=== PATIENT | male | born 1965 | race American Indian/Alaskan Native ===

== ENCOUNTER 2016-11-20 17:54 | Inpatient (IN) | payer MEDICAID ==
[2016-11-20 18:06] VITALS: BMI 29.9
[2016-11-20 19:50] LABS: BASO # 0.03 K/mm3 (0.0-2.0); BASO % 0.5 % (0.0-3.0); EOS # 0.1 (0.0-0.7); EOS % 1.9 % (1.5-5.0); GRAN # 3.22 (1.4-6.5); GRAN % 54.6 % (50.0-68.0); HEMATOCRIT 40.3 % (42.0-52.0); LYMPH # 2.1 (1.2-3.4); MEAN CELL VOLUME 82.9 fl (80.0-105.0); MEAN CORPUSCULAR HEMOGLOBIN 29.4 pg (25.0-35.0); MEAN CORPUSCULAR HGB CONC 35.5 g/dl (31.0-37.0); MEAN PLATELET VOLUME 9.1 fl (7.0-11.0); MONO # 0.4 (0.1-0.6); RED CELL DISTRIBUTION WIDTH 15.5 % (11.5-14.5); WHITE BLOOD COUNT 5.9 10^3/ul (4.5-11.0)
[2016-11-20 19:53] LABS: ALB/GLOB RATIO 1.4 (1.1-1.8); ALKALINE PHOSPHATASE 74 U/L (38-126); AST/SGOT 96 U/L (17-59); BILIRUBIN,TOTAL 0.7 mg/dL (0.2-1.3); BLOOD UREA NITROGEN 20 mg/dL (7-21); CARBON DIOXIDE 25 mmol/L (21-33); GFR AFRICAN-AMERICAN > 60; GLUCOSE,RANDOM 124 mg/dL (70-110); TOTAL PROTEIN 7.3 g/dL (5.8-8.3)
[2016-11-20 19:55] LABS: ALT/SGPT 46 U/L (7-56); CALCIUM 9.1 mg/dL (8.4-10.5); CHLORIDE 108 mmol/L (98-107); POTASSIUM 3.8 mmol/L (3.6-5.0)
[2016-11-20 20:08] LABS: SODIUM 141 mmol/L (132-148)
--- NOTE | 2016-11-20 20:22 | ED PDOC ---
Arrival/HPI - General Chief Complaint: Psychiatric Evaluation Time Seen by Provider: 11/20/16 18:12 Historian: Patient - History of Present Illness Narrative History of Present Illness (Text): 11/20/16 18:06 A 51 year old male, whose past medical history includes substance abuse, presents to the emergency department complaining of suicidal ideation. Patient reports feeling depressed and has thoughts of either hanging or shooting himself. Patient denies of any homicidal ideation, hallucinations, or any physical complaints. Also, patient has a history of depression and bipolar disorder and does not take medications due to financial constraints. No PMD Symptom Onset: Gradual Symptom Course: Unchanged Past Medical History - Provider Review Nursing Documentation Reviewed: Yes - Infectious Disease Hx of Infectious Diseases: None - Cardiac Hx Hypertension: Yes - Pulmonary Hx Tuberculosis: No - Neurological Hx Seizures: No - HEENT Hx HEENT Disorder: No - Renal Hx Renal Disorder: No - Endocrine/Metabolic Hx Endocrine Disorders: No - Hematological/Oncological Hx Cancer: No (Patient denied) - Integumentary Hx Dermatological Disorder: No - Musculoskeletal/Rheumatological Hx Musculoskeletal Disorders: No Hx Falls: No - Gastrointestinal Hx Gastrointestinal Disorders: No - Genitourinary/Gynecological Hx Sexually Transmitted Diseases: No - Psychiatric Hx Depression: Yes Hx Post Traumatic Stress Disorder: Yes Hx Substance Use: Yes (marijuana also pos for cocaine) - Anesthesia Hx Anesthesia: No Family/Social History - Physician Review Nursing Documentation Reviewed: Yes Family/Social History: No Known Family HX Smoking Status: Light Smoker < 10 Cigarettes Daily Hx Alcohol Use: Yes Hx Substance Use: Yes (marijuana also pos for cocaine) Allergies/Home Meds Allergies/Adverse Reactions: Allergies shrimp Allergy (Verified 11/09/16 14:37) SWELLING Home Medications: Home Meds Medication Instructions Recorded Confirmed No Known Home Med 11/09/16 11/09/16 Review of Systems - Physician Review All systems were reviewed & negative as marked: Yes - Review of Systems Constitutional: absent: Other (no physical complaints) Psychiatric: Depression, Suicidal Ideation. absent: Other (no homicidal ideation; no hallucinations) Physical Exam Vital Signs Reviewed: Yes Vital Signs Temp Pulse Resp BP Pulse Ox 11/20/16 20:13 84 16 136/80 98 11/20/16 17:54 99 F 103 H 18 107/74 98 Temperature: Afebrile Blood Pressure: Normal Pulse: Regular Respiratory Rate: Normal Appearance: Positive for: Well-Appearing, Non-Toxic, Comfortable Pain Distress: None Mental Status: Positive for: Alert and Oriented X 3 - Systems Exam Head: Present: Atraumatic, Normocephalic Pupils: Present: PERRL Extroacular Muscles: Present: EOMI Conjunctiva: Present: Normal Mouth: Present: Moist Mucous Membranes Neck: Present: Normal Range of Motion Respiratory/Chest: Present: Clear to Auscultation, Good Air Exchange. No: Respiratory Distress, Accessory Muscle Use Cardiovascular: Present: Regular Rate and Rhythm, Normal S1, S2. No: Murmurs Abdomen: Present: Normal Bowel Sounds. No: Tenderness, Distention, Peritoneal Signs Back: Present: Normal Inspection Upper Extremity: Present: Normal Inspection. No: Cyanosis, Edema Lower Extremity: Present: Normal Inspection. No: Edema Neurological: Present: GCS=15, CN II-XII Intact, Speech Normal Skin: Present: Warm, Dry, Normal Color. No: Rashes Psychiatric: Present: Alert, Oriented x 3, Normal Insight, Normal Concentration Medical Decision Making ED Course and Treatment: 11/20/16 18:12 Impression: 51 year old male with suicidal ideation. Physical exam is normal. Plan: -- EKG -- Chest X-ray -- Labs -- Urinalysis -- Reassess and disposition Prior Visits: Notes and results from previous visits were reviewed. Patient was last seen in the emergency department on 11/09/2016 for detox intaking cocaine and alcohol. Patient was admitted. Progress Notes: EKG: Ordered, reviewed, and independently interpreted the EKG. Rate : 91 BPM Rhythm : NSR Interpretation : No ST-segment elevations or depressions, no T-wave inversions, normal intervals. Comparison : No previous EKG for comparison. - Lab Interpretations Lab Results: 11/20/16 19:30 11/20/16 19:30 Lab Results 11/20/16 19:30: Alcohol, Quantitative 64 H 11/20/16 19:30: Salicylates < 1 L, Acetaminophen < 10.0 L 11/20/16 19:30: Sodium 141, Potassium 3.8, Chloride 108 H, Carbon Dioxide 25, Anion Gap 12, BUN 20, Creatinine 1.3, Est GFR ( Amer) > 60, Est GFR (Non- Af Amer) 59, Random Glucose 124 H, Calcium 9.1, Total Bilirubin 0.7, AST 96 H D , ALT 46, Alkaline Phosphatase 74, Total Protein 7.3, Albumin 4.2, Globulin 3.1 , Albumin/Globulin Ratio 1.4 11/20/16 19:30: WBC 5.9, RBC 4.86, Hgb 14.3, Hct 40.3 L, MCV 82.9, MCH 29.4, MCHC 35.5, RDW 15.5 H, Plt Count 254, MPV 9.1, Gran % 54.6, Lymph % (Auto) 36.0 H, Baldwin % (Auto) 7.0 H, Eos % (Auto) 1.9, Baso % (Auto) 0.5, Gran # 3.22, Lymph # 2.1, Baldwin # 0.4, Eos # 0.1, Baso # 0.03 I have reviewed the lab results: Yes - RAD Interpretation Radiology Orders: 11/20/16 18:12 CHEST ONE VIEW [RAD] Stat - Scribe Statement The provider has reviewed the documentation as recorded by the Talat Nguyen Provider Scribe Attestation: All medical record entries made by the Talat were at my direction and personally dictated by me. I have reviewed the chart and agree that the record accurately reflects my personal performance of the history, physical exam, medical decision making, and the department course for this patient. I have also personally directed, reviewed, and agree with the discharge instructions and disposition. Disposition/Present on Arrival - Present on Arrival Any Indicators Present on Arrival: No History of DVT/PE: No History of Uncontrolled Diabetes: No Urinary Catheter: No History of Decub. Ulcer: No History Surgical Site Infection Following: None - Disposition Have Diagnosis and Disposition been Completed?: Yes Diagnosis: Bipolar 1 disorder Disposition: HOSPITALIZED Disposition Time: 20:50 Condition: STABLE
--- NOTE | 2016-11-21 06:16 | PCM.BM ---
<FranckReji O - Last Filed: 11/21/16 06:00> Treatment Plan Problems - Problems identified on initial assessmt suicidal thoughts Date Initiated: 11/20/16 Time Initiated: 22:00 Assessment reference: NA Status: Active Priority: 1 substance abuse Date Initiated: 11/20/16 Time Initiated: 22:00 Assessment reference: NA Status: Active Priority: 2 Treatment assets and liabiliti Patient Assests: adapts well, cooperative, motivated, ADL independent, physically healthy, negotiates basic needs, good interpersonal skills Patient Liabilities: financial problems, poor support system, relationship conflicts, substance abuse - Milieu Protocol Maintain good personal hygiene: daily Encourage regular showers, daily Remind patient to perform daily oral care, daily Assist patient to perform ADL's Maintain personal safety: daily Educate patient to report safety concerns to staff, daily Monitor environment for contraband/sharps Medication safety: Monitor for expected outcome, potential side effects: daily, Assess barriers to learning: daily, Assess readiness for medication education: daily Milieu Narrative: * grp/milieu and supportive tx * celexa 10 mg po daily for depression * sonata 5 mg HS for insomnia * ativan 1 mg po q8 for alcohol withdrawal, taper as tolerated * Awaiting medical consult * Vitals reviewed and noted below: ER LABS AND STUDIES Rate : 91 BPM Rhythm : NSR Interpretation : No ST-segment elevations or depressions, no T-wave inversions, normal intervals. 11/20/16 19:30: Alcohol, Quantitative 64 H 11/20/16 19:30: Salicylates < 1 L, Acetaminophen < 10.0 L 11/20/16 19:30: Sodium 141, Potassium 3.8, Chloride 108 H, Carbon Dioxide 25, Anion Gap 12, BUN 20, Creatinine 1.3, Est GFR ( Amer) > 60, Est GFR (Non- Af Amer) 59, Random Glucose 124 H, Calcium 9.1, Total Bilirubin 0.7, AST 96 H D , ALT 46, Alkaline Phosphatase 74, Total Protein 7.3, Albumin 4.2, Globulin 3.1 , Albumin/Globulin Ratio 1.4 11/20/16 19:30: WBC 5.9, RBC 4.86, Hgb 14.3, Hct 40.3 L, MCV 82.9, MCH 29.4, MCHC 35.5, RDW 15.5 H, Plt Count 254, MPV 9.1, Gran % 54.6, Lymph % (Auto) 36.0 H, Bonner % (Auto) 7.0 H, Eos % (Auto) 1.9, Baso % (Auto) 0.5, Gran # 3.22, Lymph # 2.1, Bonner # 0.4, Eos # 0.1, Baso # 0.03 Family Contact Family contact name: Tisha Maurice Discharge/Continuing Care - Education Needs Education Needs: Patient Medication, Patient Coping Skills, Patient Placement options, Patient Activities of Daily Living - Discharge Discharge Criteria: Free of Suicidal thoughts, Normal sleep pattern - Treatment Team Participation Patient/Family/SO Statement: * grp/milieu and supportive tx * celexa 10 mg po daily for depression * sonata 5 mg HS for insomnia * ativan 1 mg po q8 for alcohol withdrawal, taper as tolerated * Awaiting medical consult * Vitals reviewed and noted below: ER LABS AND STUDIES Rate : 91 BPM Rhythm : NSR Interpretation : No ST-segment elevations or depressions, no T-wave inversions, normal intervals. 11/20/16 19:30: Alcohol, Quantitative 64 H 11/20/16 19:30: Salicylates < 1 L, Acetaminophen < 10.0 L 11/20/16 19:30: Sodium 141, Potassium 3.8, Chloride 108 H, Carbon Dioxide 25, Anion Gap 12, BUN 20, Creatinine 1.3, Est GFR ( Amer) > 60, Est GFR (Non- Af Amer) 59, Random Glucose 124 H, Calcium 9.1, Total Bilirubin 0.7, AST 96 H D , ALT 46, Alkaline Phosphatase 74, Total Protein 7.3, Albumin 4.2, Globulin 3.1 , Albumin/Globulin Ratio 1.4 11/20/16 19:30: WBC 5.9, RBC 4.86, Hgb 14.3, Hct 40.3 L, MCV 82.9, MCH 29.4, MCHC 35.5, RDW 15.5 H, Plt Count 254, MPV 9.1, Gran % 54.6, Lymph % (Auto) 36.0 H, Bonner % (Auto) 7.0 H, Eos % (Auto) 1.9, Baso % (Auto) 0.5, Gran # 3.22, Lymph # 2.1, Bonner # 0.4, Eos # 0.1, Baso # 0.03 <Obie Arriola - Last Filed: 11/21/16 10:07> - Diagnosis (1) Alcohol dependence Status: Acute (2) Depression Status: Acute <Monique Beatty - Last Filed: 11/24/16 08:49>
[2016-11-21 07:34] VITALS: RESP 20
[2016-11-21 07:54] LABS: CHOLESTEROL 223 mg/dL (130-200)
[2016-11-21] MEDS ORDERED: POLYETHYLENE GLYCOL 3350 17 GM/Dose PACKET PO PRN (08:49)
--- NOTE | 2016-11-21 09:03 | PCM.PSYCH ---
Initial Psychiatric Evaluation - Initial Psychiatric Evaluation Type of Admission: Voluntary History of Present Illness and Precipitating Events: Patient is a 51 year old single AA male with a history of depression, alcohol, cocaine, heroin and cannabis use disorder, multiple admissions-most recently detoxed at [facility] 11/10-11/12/16 where he was discharged due to hostile behavior; no current outpatient treatment, 1 vague SA x one year ago who presented to [place] [facility] [place] department complaining of suicidal ideation. ER report indicated that patient reported feeling depressed with thoughts of either hanging or shooting himself. I met with patient at bedside. He is oriented to location, month, year and circumstances. Presents as labile, demanding and irritable. Admits to cocaine and MJA use x 3 days ago. He has also been drinking 2 shots of vodka "every few days" since discharge from [place] detox x9 days ago. He denies any other drug use. Patient is still depressed and hopeless. He appears tired. Patient denies hallucinations at this time. Thought process is clear and coherent. He demonstrates no signs of psychosis. Denies any pain or discomfort. Thus far he is tenuously in control on the unit. SOCIAL HISTORY Patient was born and raised in [place]. His single and denies having any children. Patient is reluctant to discuss his substance-abuse history but does report that he has been drinking two shots of vodka "every now and then" and used marijuana and cocaine three days ago. He has a history of heroin use approximately 3-4 weeks ago. Previously detox on two occasions, most recently discharged from [facility] nine days ago where he was treated for alcohol withdrawal. He reports smoking two cigarettes daily and defers on nicotine patch when discussed. Morbidity and mortality risks of nicotine use were reviewed with patient PSYCHIATRIC HISTORY Patient reports a prior admission at [facility] X1 year ago however [facility] Records indicate that he was hospitalized at [facility] a year ago. Patient reported having one suicide attempt approximately one year ago leading to the aforementioned hospitalization. Patient is currently not in outpatient psychiatric care. Patient cannot recall beneficial medication trials. As noted patient was recently detoxed at [facility] from 11/10/16-11/12/16. [facility] discharge note indicated "Last night and this morning, pt. became emotionally labile, highly threatening, and intimidating and humiliating to the nurses and other patients. He had to be discharged immediately due to his hostile behavior ". Current Medications: Active Medications Generic Name Dose Route Start Last Admin Trade Name Frejose PRN Reason Stop Dose Admin Aripiprazole 2.5 mg 11/20/16 22:00 11/20/16 23:09 Abilify PO 2.5 mg HS [facility]ID Administration Citalopram Hydrobromide 10 mg 11/21/16 08:00 Celexa PO DAILY [facility] Lorazepam 1 mg 11/21/16 08:00 Ativan PO TID [facility] Protocol Multivitamins 1 tab 11/21/16 08:00 Thera Tab PO 0800 OM[facility] Thiamine HCl 50 mg 11/21/16 08:00 Vitamin B1 Tab PO DAILY OM[facility] Zaleplon 5 mg 11/20/16 22:45 11/20/16 23:10 Sonata PO 5 mg HS PRN Administration Insomnia Past Psychiatric History - Past Psychiatric History Pertinent Medical Hx (Current Medical&Sleep Prob, Allergies): Allergies Allergy/AdvReac Type Severity Reaction Status Date / Time shrimp Allergy SWELLING Verified 11/21/16 02:18 No Known Home Med 11/09/16 DSM 5 DX - DSM 5 DSM 5 Diagnosis: Mood Disorder NOS Contribution of SIMD Alcohol use d/o-severe Cocaine use d/o-severe Cannabis use d/o Opiate use d/o Personality d/o-unspecified - Recommended/Plan of Treatment Treatment Recommendations and Plan of Treatment: * grp/milieu and supportive tx * celexa 10 mg po daily for depression * abilify 2.5 mg HS for hx of hallucinations * sonata 10 mg HS for insomnia * ativan 1 mg po q8 for alcohol withdrawal, taper as tolerated * Awaiting medical consult * Vitals reviewed and noted below: Selected Entries 11/20/16 11/20/16 11/21/16 17:54 20:13 07:33 Temperature 99 F 98.5 F Pulse Rate 103 H 84 69 Respiratory 18 16 20 Rate Blood Pressure 107/74 136/80 138/83 ER LABS AND STUDIES Rate : 91 BPM Rhythm : NSR Interpretation : No ST-segment elevations or depressions, no T-wave inversions, normal intervals. 11/20/16 19:30: Alcohol, Quantitative 64 H 11/20/16 19:30: Salicylates < 1 L, Acetaminophen < 10.0 L 11/20/16 19:30: Sodium 141, Potassium 3.8, Chloride 108 H, Carbon Dioxide 25, Anion Gap 12, BUN 20, Creatinine 1.3, Est GFR ( Amer) > 60, Est GFR (Non- Af Amer) 59, Random Glucose 124 H, Calcium 9.1, Total Bilirubin 0.7, AST 96 H D , ALT 46, Alkaline Phosphatase 74, Total Protein 7.3, Albumin 4.2, Globulin 3.1 , Albumin/Globulin Ratio 1.4 11/20/16 19:30: WBC 5.9, RBC 4.86, Hgb 14.3, Hct 40.3 L, MCV 82.9, MCH 29.4, MCHC 35.5, RDW 15.5 H, Plt Count 254, MPV 9.1, Gran % 54.6, Lymph % (Auto) 36.0 H, Lamar % (Auto) 7.0 H, Eos % (Auto) 1.9, Baso % (Auto) 0.5, Gran # 3.22, Lymph # 2.1, Lamar # 0.4, Eos # 0.1, Baso # 0.03 FLOOR LABS 11/21/16 11/21/16 07:31 07:31 Triglycerides 83 Cholesterol 223 H LDL Cholesterol Direct 121 HDL Cholesterol 91 H TSH 3rd Generation 0.34 L
[2016-11-21] MEDS: Multivitamin Therapeutic Tab PO SCH (09:13)
[2016-11-21 09:23] LABS: MAGNESIUM 2.1 mg/dL (1.7-2.2); PHOSPHOROUS 2.9 mg/dL (2.5-4.5)
--- NOTE | 2016-11-21 12:51 | RAD ---
PROCEDURE: CHEST RADIOGRAPH, 1 VIEW HISTORY: psych eval COMPARISON: None available. FINDINGS: LUNGS: Clear. PLEURA: No pneumothorax or pleural fluid seen. CARDIOVASCULAR: Heart size is upper limits of normal/ borderline enlarged OSSEOUS STRUCTURES: No significant abnormalities. VISUALIZED UPPER ABDOMEN: Normal. OTHER FINDINGS: None. IMPRESSION: No active disease.
--- NOTE | 2016-11-21 13:19 | CARD ---
APPROVED REPORT EKG Measurement Heart [id number] ME [id number] <Conclusion> Normal sinus rhythm Biatrial enlargement T wave abnormality, consider inferior ischemia Abnormal ECG
[2016-11-22] MEDS: Multivitamin Therapeutic Tab PO SCH (08:21)
--- NOTE | 2016-11-22 08:56 | CP.PCM.HP ---
History of Present Illness - History of Present Illness History of Present Illness: CC: Medical Evaluation HPI: 51 year old male with history of heroin abuse, tobacco use, alcohol abuse, cocaine use and marijuana use who presented with suicidal ideation. As per patient he has been feeling very depressed. Denies any chest pain, abdominal pain, hallucinations, tremors, nausea, vomiting, headache, abdominal pain or urinary problems. He states that he has been having constipation for a long time and last BM was 3 days ago. He normally moves his bowel once or twice a week. No other complaints. PMG: Polysubstance abuse including marijuana, cocaine, heroin, alcohol and tobacco use Allergy: Shrimp Hospitalization: He has never been hospitalized for medical reasons. He was recently admitted in psych unit for depression. Family History: Father was alcoholic Social History: Lives with the girl friend. 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 Admits to tobacco use and polysuubstance abuse Present on Admission - Present on Admission Any Indicators Present on Admission: No History of DVT/PE: No History of Uncontrolled Diabetes: No Urinary Catheter: No Decubitus Ulcer Present: No Review of Systems - Constitutional Constitutional: absent: Anorexia, Chills, Daytime Sleepiness, Excessive Sweating , Fatigue, Fever, Frequent Falls, Headache, Increased Appetite, Lethargy, Malaise, Night Sweats, Snoring, Sleep Apnea, Weight Gain, Weight Loss, Weakness - EENT Eyes: absent: Blind Spots, Blurred Vision, Change in Vision, Discharge, Dry Eye , Itchy Eyes, Loss of Peripheral Vision Nose/Mouth/Throat: absent: Epistaxis, Nasal Congestion, Nasal Discharge, Nose Pain, Post Nasal Drip, Sinus Pain, Sinus Pressure, Change in Voice, Dental Pain , Dry Mouth, Dysphagia, Hoarsness, Lip Swelling, Mouth Lesions, Mouth Pain - Cardiovascular Cardiovascular: absent: Acrocyanosis, Chest Pain, Chest Pain at Rest, Chest Pain with Activity, Claudication, Diaphoresis, Dyspnea, Dyspnea on Exertion, Edema, Irregular Heart Rhythm, Pain Radiating to Arm/Neck/Jaw, Leg Edema, Leg Ulcers, Lightheadedness, Rapid Heart Rate - Respiratory Respiratory: absent: Cough, Dyspnea, Hemoptysis, Dyspnea on Exertion, Stridor, Pain on Inspiration, Chest Congestion, Excessive Mucous Production, Change in Mucous Color, Pain with Coughing - Gastrointestinal Gastrointestinal: Constipation. absent: Abdominal Pain, Bloating, Change in Stool Character, Coffee Ground Emesis, Dyspepsia, Dysphagia, Early Satiety, Excessive Flatus, Heartburn, Hematemesis, Odynophagia - Genitourinary Genitourinary: absent: Change in Urinary Stream, Difficulty Urinating, Nocturia , Urinary Incontinence, Urinary Frequency, Urinary Urgency, Voiding Freq/Small Amts, Hx Renal/Bladder Calculi, Hx /Renal Surgery - Musculoskeletal Musculoskeletal: absent: Abnormal Gait, Arthralgias, Atrophy, Back Pain, Deformity, Joint Swelling, Limited Range of Motion, Loss of Height, Muscle Cramps, Muscle Weakness, Myalgias, Neck Pain, Radiating Pain into Limb - Integumentary Integumentary: absent: Acne, Alopecia, Bleeding Lesions, Change in Pigmentation , Changing Lesions, Hirsutism, Lesions, New Lesions - Neurological Neurological: absent: Abnormal Hearing, Abnormal Movements, Abnormal Speech, Behavioral Changes, Burning Sensations, Confusion, Disequilibrium, Dizziness, Headaches, Lack of Coordination, Loss of Vision, Memory Loss, Radicular Pain - Psychiatric Psychiatric: absent: Anhedonia, Anxiety, Auditory Hallucinations, Behavioral Changes, Change in Appetite, Change in Libido, Hopelessness, Irritability, Memory Loss, Panic Attacks, Paranoia, Suicidal Ideation, Visual Hallucinations, Tactile Hallucinations - Endocrine Endocrine: absent: Change in Body Appearance, Change in Libido, Cold Intolorance , Excessive Sweating, Fatigue, Flushing, Increase in Ring/Shoe/Hat Size, Palpitations, Polydipsia, Polyphagia - Hematologic/Lymphatic Hematologic: absent: Easy Bleeding, Easy Bruising, Lymphadenopathy Past Patient History - Infectious Disease Hx of Infectious Diseases: None - Past Social History Smoking Status: Light Smoker < 10 Cigarettes Daily - PSYCHIATRIC Hx Depression: Yes Hx Substance Use: Yes - SURGICAL HISTORY Hx Surgeries: No - ANESTHESIA Hx Anesthesia: No Meds Allergies/Adverse Reactions: Allergies Allergy/AdvReac Type Severity Reaction Status Date / Time shrimp Allergy SWELLING Verified 11/21/16 02:18 Physical Exam - Constitutional Appears: Well, No Acute Distress - Head Exam Head Exam: ATRAUMATIC, NORMAL INSPECTION, NORMOCEPHALIC - Eye Exam Eye Exam: EOMI, Normal appearance Pupil Exam: PERRL - ENT Exam ENT Exam: Mucous Membranes Moist - Neck Exam Neck exam: Positive for: Full Rom, Normal Inspection - Respiratory Exam Respiratory Exam: Clear to Auscultation Bilateral, NORMAL BREATHING PATTERN. absent: Accessory Muscle Use, Chest Wall Tenderness, Prolonged Expiratory Phase , Rhonchi - Cardiovascular Exam Cardiovascular Exam: REGULAR RHYTHM, +S1, +S2 - GI/Abdominal Exam GI & Abdominal Exam: Distended, Normal Bowel Sounds, Soft - Rectal Exam Rectal Exam: Deferred - Extremities Exam Extremities exam: Positive for: full ROM, normal inspection, pedal pulses present - Back Exam Back exam: FULL ROM, NORMAL INSPECTION. absent: CVA tenderness (L), CVA tenderness (R) - Neurological Exam Neurological exam: Alert, Oriented x3, Reflexes Normal Additional comments: slight limp while walking which is chronic as per patient - Psychiatric Exam Psychiatric exam: Normal Affect, Normal Mood - Skin Skin Exam: Dry, Intact, Normal Color, Warm Results - Vital Signs Recent Vital Signs: Last Vital Signs Temp 98.5 F 11/21/16 07:33 Pulse 69 11/21/16 07:33 Resp 20 11/21/16 07:33 BP 138/83 11/21/16 07:33 Pulse Ox 98 11/20/16 20:13 - Labs Result Diagrams: 11/20/16 19:30 11/20/16 19:30 Labs: Laboratory Results - last 24 hr 11/21/16 11/21/16 07:31 07:31 Triglycerides 83 Cholesterol 223 H LDL Cholesterol Direct 121 HDL Cholesterol 91 H TSH 3rd Generation 0.34 L Assessment & Plan - Assessment and Plan (Free Text) Plan: This is 51 year old male with polysubstance abuse who came for evaluation and management of suicidal ideation. 1-Depression and suicidal ideation: Manage as per psychiatrist. TSH slightly low. T4 wnl. Most likely subclinical hyperthyroidism.Need to have repeat TFT's within 2-4 weeks. 2-Polysubstance abuse: Counselling provided. Will closely monitor for withdrawal 3-Alcohol abuse: Counselling providd. Recommend SW consult regardong AA meetings. Electrolytes stable. Again needs to be closely observed for withdrawal.Continue thiamine, MVI and folic acid. He has mild transaminitis. Will check for hep panel and recommend liver ultrasound as an outpatient. Please call MD with results of hep panel. 4-Constipation: Will start colace jeff and miralax prn. 5-Tobacco use: Counselling provided. Start nicotine patch. 6-DVT prophylaxis: ambulate prn. 9-Dispo: Upon discharge patient will follow up with PMD of choice. Thanks for providing us the opportunity to be involved in patient care. Will sign off at this time. Please reconsult as needed.
--- NOTE | 2016-11-22 09:01 | PCM.PYCHPN ---
Psychiatric Progress Note - Psychiatric Progress Note Patient seen today, length of contact: 25 min Patient Chief Complaint: depressed Problems Identified/Issues Discussed: History of Present Illness and Precipitating Events: Patient is a 51 year old single AA male with a history of depression, alcohol, cocaine, heroin and cannabis use disorder, multiple admissions-most recently detoxed at [facility] 11/10-11/12/16 where he was discharged due to hostile behavior; no current outpatient treatment, 1 vague SA x one year ago who [place] [facility] [place] of suicidal ideation. ER report indicated that patient reported feeling depressed with thoughts of either hanging or shooting himself. I met with patient at bedside. He is oriented to location, month, year and circumstances. Presents as labile, demanding and irritable. Admits to cocaine and MJA use x 3 days ago. He has also been drinking 2 shots of vodka "every few days" since discharge from [place] detox x9 days ago. He denies any other drug use. Patient is still depressed and hopeless. He appears tired. Patient denies hallucinations at this time. Thought process is clear and coherent. He demonstrates no signs of psychosis. Denies any pain or discomfort. Thus far he is tenuously in control on the unit. SOCIAL HISTORY Patient was born and raised in [place]. His single and denies having any children. Patient is reluctant to discuss his substance-abuse history but does report that he has been drinking two shots of vodka "every now and then" and used marijuana and cocaine three days ago. He has a history of heroin use approximately 3-4 weeks ago. Previously detox on two occasions, most recently discharged from [facility] nine days ago where he was treated for alcohol withdrawal. He reports smoking two cigarettes daily and defers on nicotine patch when discussed. Morbidity and mortality risks of nicotine use were reviewed with patient PSYCHIATRIC HISTORY Patient reports a prior admission at [facility] X1 year ago however [facility] Records indicate that he was hospitalized at [facility] a year ago. Patient reported having one suicide attempt approximately one year ago leading to the aforementioned hospitalization. Patient is currently not in outpatient psychiatric care. Patient cannot recall beneficial medication trials. As noted patient was recently detoxed at [facility] from 11/10/16-11/12/16. [facility] discharge note indicated "Last night and this morning, pt. became emotionally labile, highly threatening, and intimidating and humiliating to the nurses and other patients. He had to be discharged immediately due to his hostile behavior ". ~~~~~~~~~~~~~~~~~~~~~~~~~~~~~~~~~~~~~~~ I reviewed recent notes and met with patient at bedside. He remains well oriented to month your location and circumstances. He indicates that he feels "okay" however remains depressed. Affect is constricted at this time however more reactive and friendly than yesterday. Thought process remains clear and coherent. He does not appear to be hallucinating and currently denies having any hallucinations. He is tolerating his medications and denies any new discomfort or pain. Sleep was still restless. There have been no major behavioral issues on the unit thus far. Diagnostic Results: Mood Disorder NOS Contribution of SIMD Alcohol use d/o-severe Cocaine use d/o-severe Cannabis use d/o Opiate use d/o Personality d/o-unspecified Medication Change: No Medical Record Reviewed: Yes Mental Status Examination - Cognitive Function Memory: Intact Attention: WNL Concentration: WNL - Mood Mood: Depressed - Affect Affect: Constricted - Speech Speech: Appropriate - Formal Thought Process Formal Thought Process: No Impairment - Suicidal Ideation Suicidal Ideation: No - Homicidal Ideation Homicidal Ideation: No Goal/Treatment Plan - Goal/Treatment Plan Progress Toward Problem(s) and Goals/Treatment Plan: * grp/milieu and supportive tx * celexa 10 mg po daily for depression * abilify 2.5 mg HS for hx of hallucinations * sonata 10 mg HS for insomnia * ativan 1 mg po q12 for alcohol withdrawal, keep tapering as tolerated * Awaiting medical consult * Vitals reviewed and noted below: Selected Entries 11/21/16 11/21/16 07:33 16:00 Temperature 98.5 F Pulse Rate 69 74 Respiratory 20 Rate Blood Pressure 138/83 128/77 ER LABS AND STUDIES Rate : 91 BPM Rhythm : NSR Interpretation : No ST-segment elevations or depressions, no T-wave inversions, normal intervals. 11/20/16 19:30: Alcohol, Quantitative 64 H 11/20/16 19:30: Salicylates < 1 L, Acetaminophen < 10.0 L 11/20/16 19:30: Sodium 141, Potassium 3.8, Chloride 108 H, Carbon Dioxide 25, Anion Gap 12, BUN 20, Creatinine 1.3, Est GFR ( Amer) > 60, Est GFR (Non- Af Amer) 59, Random Glucose 124 H, Calcium 9.1, Total Bilirubin 0.7, AST 96 H D , ALT 46, Alkaline Phosphatase 74, Total Protein 7.3, Albumin 4.2, Globulin 3.1 , Albumin/Globulin Ratio 1.4 11/20/16 19:30: WBC 5.9, RBC 4.86, Hgb 14.3, Hct 40.3 L, MCV 82.9, MCH 29.4, MCHC 35.5, RDW 15.5 H, Plt Count 254, MPV 9.1, Gran % 54.6, Lymph % (Auto) 36.0 H, [place] % (Auto) 7.0 H, Eos % (Auto) 1.9, Baso % (Auto) 0.5, Gran # 3.22, Lymph # 2.1, [place] # 0.4, Eos # 0.1, Baso # 0.03 FLOOR LABS 11/21/16 11/21/16 07:31 07:31 Triglycerides 83 Cholesterol 223 H LDL Cholesterol Direct 121 HDL Cholesterol 91 H TSH 3rd Generation 0.34 L 11/21/16 11/21/16 09:00 09:00 Phosphorus 2.9 Magnesium 2.1 Free T4 0.88
[2016-11-23] MEDS: Multivitamin Therapeutic Tab PO SCH (08:40)
--- NOTE | 2016-11-23 17:13 | PCM.PYCHPN ---
Psychiatric Progress Note - Psychiatric Progress Note Patient seen today, length of contact: 30min Patient Chief Complaint: "I wanted to end up my life, I thought that I want to jump off the bridge and hang myself, I also was thinking to overdose on drugs and alcohol..." Problems Identified/Issues Discussed: Suicide/ homicide prevention, past psychiatric h/o, current psychiatric symptoms , medical problems, risk/benefits and alternatives of medications, medications compliance, coping strategies, substance abuse h/o, relapse prevention, importance of follow up with psychiatrist and therapist, discharge plan. Medical Problems: 11/20/16 19:30 11/20/16 19:30 Lab Results 11/22/16 11:50: Hepatitis A IgM Ab Negative, Hep Bs Antigen Negative, Hep B Core IgM Ab Negative, Hepatitis C Antibody Negative 11/21/16 09:00: Phosphorus 2.9, Magnesium 2.1 11/21/16 09:00: Free T4 0.88 11/21/16 07:31: TSH 3rd Generation 0.34 L 11/21/16 07:31: Hemoglobin A1c 5.9 11/21/16 07:31: Triglycerides 83, Cholesterol 223 H, LDL Cholesterol Direct 121 , HDL Cholesterol 91 H 11/20/16 19:30: Alcohol, Quantitative 64 H 11/20/16 19:30: Salicylates < 1 L, Acetaminophen < 10.0 L 11/20/16 19:30: Sodium 141, Potassium 3.8, Chloride 108 H, Carbon Dioxide 25, Anion Gap 12, BUN 20, Creatinine 1.3, Est GFR ( Amer) > 60, Est GFR (Non- Af Amer) 59, Random Glucose 124 H, Calcium 9.1, Total Bilirubin 0.7, AST 96 H D , ALT 46, Alkaline Phosphatase 74, Total Protein 7.3, Albumin 4.2, Globulin 3.1 , Albumin/Globulin Ratio 1.4 11/20/16 19:30: WBC 5.9, RBC 4.86, Hgb 14.3, Hct 40.3 L, MCV 82.9, MCH 29.4, MCHC 35.5, RDW 15.5 H, Plt Count 254, MPV 9.1, Gran % 54.6, Lymph % (Auto) 36.0 H, [place] % (Auto) 7.0 H, Eos % (Auto) 1.9, Baso % (Auto) 0.5, Gran # 3.22, Lymph # 2.1, [place] # 0.4, Eos # 0.1, Baso # 0.03 Vital Signs Temp Pulse Resp BP Pulse Ox 11/23/16 16:13 67 159/109 H 11/22/16 20:00 81 149/115 H 11/22/16 07:11 98 F 67 20 148/96 H 11/21/16 16:00 74 128/77 11/21/16 07:33 98.5 F 69 20 138/83 11/21/16 02:27 18 11/20/16 20:13 84 16 136/80 98 11/20/16 17:54 99 F 103 H 18 107/74 98 Diagnostic Results: 11/20/16 19:30 11/20/16 19:30 Lab Results 11/22/16 11:50: Hepatitis A IgM Ab Negative, Hep Bs Antigen Negative, Hep B Core IgM Ab Negative, Hepatitis C Antibody Negative 11/21/16 09:00: Phosphorus 2.9, Magnesium 2.1 11/21/16 09:00: Free T4 0.88 11/21/16 07:31: TSH 3rd Generation 0.34 L 11/21/16 07:31: Hemoglobin A1c 5.9 11/21/16 07:31: Triglycerides 83, Cholesterol 223 H, LDL Cholesterol Direct 121 , HDL Cholesterol 91 H 11/20/16 19:30: Alcohol, Quantitative 64 H 11/20/16 19:30: Salicylates < 1 L, Acetaminophen < 10.0 L 11/20/16 19:30: Sodium 141, Potassium 3.8, Chloride 108 H, Carbon Dioxide 25, Anion Gap 12, BUN 20, Creatinine 1.3, Est GFR ( Amer) > 60, Est GFR (Non- Af Amer) 59, Random Glucose 124 H, Calcium 9.1, Total Bilirubin 0.7, AST 96 H D , ALT 46, Alkaline Phosphatase 74, Total Protein 7.3, Albumin 4.2, Globulin 3.1 , Albumin/Globulin Ratio 1.4 11/20/16 19:30: WBC 5.9, RBC 4.86, Hgb 14.3, Hct 40.3 L, MCV 82.9, MCH 29.4, MCHC 35.5, RDW 15.5 H, Plt Count 254, MPV 9.1, Gran % 54.6, Lymph % (Auto) 36.0 H, [place] % (Auto) 7.0 H, Eos % (Auto) 1.9, Baso % (Auto) 0.5, Gran # 3.22, Lymph # 2.1, [place] # 0.4, Eos # 0.1, Baso # 0.03 Vital Signs Temp Pulse Resp BP Pulse Ox 11/23/16 16:13 67 159/109 H 11/22/16 20:00 81 149/115 H 11/22/16 07:11 98 F 67 20 148/96 H 11/21/16 16:00 74 128/77 11/21/16 07:33 98.5 F 69 20 138/83 11/21/16 02:27 18 11/20/16 20:13 84 16 136/80 98 11/20/16 17:54 99 F 103 H 18 107/74 98 DSM 5 Symptoms Update: PER ASSESSMENT: Patient is a 51 year old single AA male with a history of depression, alcohol, cocaine, heroin and cannabis use disorder, multiple admissions-most recently detoxed at [facility] 11/10-11/12/16 where he was discharged due to hostile behavior; no current outpatient treatment, 1 vague SA x one year ago who presented [place] [facility] [place] complaining of suicidal ideation. ER report indicated that patient reported feeling depressed with thoughts of either hanging or shooting himself, during treatment team pt said that he wanted to either to hang himself with the shoe lace on the bridge "but I ran to the hospital", or overdose on alcohol and drugs, or shoot himself with the gun ( pt does not have an access to the guns). pt is dramatic, exaggerating, most likely malingering. affect was full range. pt said that he hears voices saying to kill himself, pt does not appear to be psychotic, thought process is goal directed and organized. pt was recently d/c from the [facility] for hostile behavior. "Last night and this morning, pt. became emotionally labile, highly threatening, and intimidating and humiliating to the nurses and other patients. He had to be discharged immediately due to his hostile behavior". patient did not have any aggressive, inappropriate behavior, patient is friendly , superficially corporative. Patient tolerates all medications well, no side effects observed or reported, aims 0, no EPS. All drugs patient uses on last prior to come to the hospital. No signs of any type of withdrawals. Diagnostic Results: Mood Disorder NOS Contribution of SIMD Alcohol use d/o-severe Cocaine use d/o-severe Cannabis use d/o Opiate use d/o Personality d/o-unspecified Medication Change: No Medical Record Reviewed: Yes Consults ordered or reviewed: medical consultation appreciated Mental Status Examination - Cognitive Function Memory: Intact Attention: WNL Concentration: WNL - Mood Mood: Depressed - Affect Affect: Constricted - Speech Speech: Appropriate - Formal Thought Process Formal Thought Process: No Impairment - Suicidal Ideation Suicidal Ideation: No - Homicidal Ideation Homicidal Ideation: No Goal/Treatment Plan - Goal/Treatment Plan Need for Continued Stay: Remain at risks for inpatient hospitalization, Severe depression anxiety, Discharge may exacerbated symptoms, Failed transitioning Progress Toward Problem(s) and Goals/Treatment Plan: milieu, structure, supportive therapy Abilify 2.5 mg at the nighttime from mood stabilization Sonata will be discontinued Benadryl as needed for insomnia Celexa 10 mg daily for depression and anxiety We'll continue multivitamins thiamine and folic acid Ativan will be decreased as well as given as needed for anxiety Medical team evaluation appreciated wall worker evaluation for possible inpatient rehabilitation We'll monitor patient closely Estimated Date of D/C: 11/25/16 (will monitor closely)
[2016-11-24] MEDS: Multivitamin Therapeutic Tab PO SCH (08:24)
--- NOTE | 2016-11-24 15:29 | PCM.PYCHPN ---
Psychiatric Progress Note - Psychiatric Progress Note Patient seen today, length of contact: 30min Patient Chief Complaint: "I hear my own thoughts" Medical Problems: 11/20/16 19:30 11/20/16 19:30 Lab Results 11/22/16 11:50: Hepatitis A IgM Ab Negative, Hep Bs Antigen Negative, Hep B Core IgM Ab Negative, Hepatitis C Antibody Negative 11/21/16 09:00: Phosphorus 2.9, Magnesium 2.1 11/21/16 09:00: Free T4 0.88 11/21/16 07:31: TSH 3rd Generation 0.34 L 11/21/16 07:31: Hemoglobin A1c 5.9 11/21/16 07:31: Triglycerides 83, Cholesterol 223 H, LDL Cholesterol Direct 121 , HDL Cholesterol 91 H 11/20/16 19:30: Alcohol, Quantitative 64 H 11/20/16 19:30: Salicylates < 1 L, Acetaminophen < 10.0 L 11/20/16 19:30: Sodium 141, Potassium 3.8, Chloride 108 H, Carbon Dioxide 25, Anion Gap 12, BUN 20, Creatinine 1.3, Est GFR ( Amer) > 60, Est GFR (Non- Af Amer) 59, Random Glucose 124 H, Calcium 9.1, Total Bilirubin 0.7, AST 96 H D , ALT 46, Alkaline Phosphatase 74, Total Protein 7.3, Albumin 4.2, Globulin 3.1 , Albumin/Globulin Ratio 1.4 11/20/16 19:30: WBC 5.9, RBC 4.86, Hgb 14.3, Hct 40.3 L, MCV 82.9, MCH 29.4, MCHC 35.5, RDW 15.5 H, Plt Count 254, MPV 9.1, Gran % 54.6, Lymph % (Auto) 36.0 H, [place] % (Auto) 7.0 H, Eos % (Auto) 1.9, Baso % (Auto) 0.5, Gran # 3.22, Lymph # 2.1, [place] # 0.4, Eos # 0.1, Baso # 0.03 Vital Signs Temp Pulse Resp BP Pulse Ox 11/23/16 16:13 67 159/109 H 11/22/16 20:00 81 149/115 H 11/22/16 07:11 98 F 67 20 148/96 H 11/21/16 16:00 74 128/77 11/21/16 07:33 98.5 F 69 20 138/83 11/21/16 02:27 18 11/20/16 20:13 84 16 136/80 98 11/20/16 17:54 99 F 103 H 18 107/74 98 Temp Pulse Resp BP Pulse Ox 98.2 F 63 20 135/94 H 98 11/24/16 07:17 11/24/16 07:17 11/22/16 07:11 11/24/16 07:17 11/20/16 20:13 Diagnostic Results: 11/20/16 19:30 11/20/16 19:30 Lab Results 11/22/16 11:50: Hepatitis A IgM Ab Negative, Hep Bs Antigen Negative, Hep B Core IgM Ab Negative, Hepatitis C Antibody Negative 11/21/16 09:00: Phosphorus 2.9, Magnesium 2.1 11/21/16 09:00: Free T4 0.88 11/21/16 07:31: TSH 3rd Generation 0.34 L 11/21/16 07:31: Hemoglobin A1c 5.9 11/21/16 07:31: Triglycerides 83, Cholesterol 223 H, LDL Cholesterol Direct 121 , HDL Cholesterol 91 H 11/20/16 19:30: Alcohol, Quantitative 64 H 11/20/16 19:30: Salicylates < 1 L, Acetaminophen < 10.0 L 11/20/16 19:30: Sodium 141, Potassium 3.8, Chloride 108 H, Carbon Dioxide 25, Anion Gap 12, BUN 20, Creatinine 1.3, Est GFR ( Amer) > 60, Est GFR (Non- Af Amer) 59, Random Glucose 124 H, Calcium 9.1, Total Bilirubin 0.7, AST 96 H D , ALT 46, Alkaline Phosphatase 74, Total Protein 7.3, Albumin 4.2, Globulin 3.1 , Albumin/Globulin Ratio 1.4 11/20/16 19:30: WBC 5.9, RBC 4.86, Hgb 14.3, Hct 40.3 L, MCV 82.9, MCH 29.4, MCHC 35.5, RDW 15.5 H, Plt Count 254, MPV 9.1, Gran % 54.6, Lymph % (Auto) 36.0 H, [place] % (Auto) 7.0 H, Eos % (Auto) 1.9, Baso % (Auto) 0.5, Gran # 3.22, Lymph # 2.1, [place] # 0.4, Eos # 0.1, Baso # 0.03 Vital Signs Temp Pulse Resp BP Pulse Ox 11/23/16 16:13 67 159/109 H 11/22/16 20:00 81 149/115 H 11/22/16 07:11 98 F 67 20 148/96 H 11/21/16 16:00 74 128/77 11/21/16 07:33 98.5 F 69 20 138/83 11/21/16 02:27 18 11/20/16 20:13 84 16 136/80 98 11/20/16 17:54 99 F 103 H 18 107/74 98 DSM 5 Symptoms Update: Patient is a 51 year old single AA male with a history of depression, alcohol, cocaine, heroin and cannabis use disorder, multiple admissions-most recently detoxed at [facility] 11/10-11/12/16 where he was discharged due to hostile behavior; no current outpatient treatment, 1 vague SA x one year ago who [place] [facility] [place] of suicidal ideation. pt was seen at the TV area with JATIN Mills. pt presented good today, but said that he hears voices telling him "why you need to try?, just end it all", on further questioning pt said it is his own thoughts, pt said he did not take abilify because "I was sleeping, I had problems to fall asleep and that is why I refused to go to the nursing station". pt was recently d/c from the [facility] for hostile behavior. "Last night and this morning, pt. became emotionally labile, highly threatening, and intimidating and humiliating to the nurses and other patients. He had to be discharged immediately due to his hostile behavior". patient did not have any aggressive, inappropriate behavior, patient is friendly , corporative. Patient tolerates all medications well, no side effects observed or reported, aims 0, no EPS. No signs of any type of withdrawals. MSE: Pt was alert, oriented in self, time and place, improvement with concentration, memory is good. Pt deemed to be unreliable historian because of ?malingering, well related to this gag writer. Pt looks at his chronological age, good personal hygiene, good ADLs, there is no psychomotor agitation/retardation, speech was: WNL, eye contact: is fair, mood described: "I have so many losses in my life", affect:constricted, but reactive, mood congruent, thought process: goal directed , thought content:reported hearing voices, but it seems it is pt's own negative thoughts, denied SI/ HI, denied v/t hallucinations, denied paranoid ideation and pt does not appear to be internally preoccupied or responding to internal stimuli, insight/ judgment:fair , impulses are well controlled. Pt tolerates meds well, no side effects observed or reported, AIMS 0, no EPS Impression: DSM V: Mood Disorder NOS Contribution of SIMD Alcohol use d/o-severe Cocaine use d/o-severe Cannabis use d/o Opiate use d/o Personality d/o-unspecified r/o malingering Plan: Milieu/structure/supportive therapy Medical consult appreciated, see medical team note for more detailed info SW consultation for discharge plan and social issues Med management Abilify 5 mg 8pm mood stabilization Benadryl as needed for insomnia Celexa 10 mg daily for depression and anxiety We'll continue multivitamins thiamine and folic acid Ativan decreased as well as given as needed for anxiety Medical team evaluation appreciated 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 for possible inpatient rehabilitation Family involvement, pt has no family Follow up on labs Will monitor closely Pt was educated about risk/benefits and alternatives of medications, coping strategies (safety plan, suicide prevention), relapse prevention, importance of follow up with psychiatrist and therapist, stay away from drugs/alcohol/smoking Medication Change: Yes (abilify increased) Medical Record Reviewed: Yes Consults ordered or reviewed: medical consultation appreciated Goal/Treatment Plan - Goal/Treatment Plan Need for Continued Stay: Remain at risks for inpatient hospitalization, Severe depression anxiety, Discharge may exacerbated symptoms, Failed transitioning Estimated Date of D/C: 11/25/16 (will monitor closely)
[2016-11-25 07:03] VITALS: BP 145/95; PULSE 74; TEMP 98.1; O2SAT 100
[2016-11-25] MEDS: Multivitamin Therapeutic Tab PO SCH (08:49)
--- NOTE | 2016-11-25 15:06 | PCM.PYCHDC ---
Mental Status Examination - Mental Status Examination Orientation: Person, Place, Situation, Time Memory: Intact Mood: Neutral Affect: Broad (and mood congruent) Speech: Appropriate Attention: WNL Concentration: WNL Language: Word Retrieval Association: WNL Fund of Knowledge: WNL Formal Thought Process: No Impairment Description of patient's judgement and insight: Pt has improved insight into mental and medical illness, pt was compliant with medications and unit rules and regulations, pt was going to groups, was calm, cooperative, socially appropriate, no behavioral incidents, no agitation, no aggression. Psychotic Thoughts and Behaviors: Pt denied v/a/t hallucinations, denied paranoid ideations, pt does not appear to be psychotic, and thought process is goal directed. Suicidal Ideation: No Current Homicidal Ideation?: No Plan: pt adamantly denied thoughts of harming self or others denied intent or plan. Discharge Summary - Discharge Note Reason for Hospitalization: possible depression and possible suicidal ideations, which ruled out Psychiatric History (includes Medical, Family, Personal Hx): see HPI, patient was recently discharged from [facility] Laboratory Data: 11/20/16 19:30 11/20/16 19:30 Lab Results 11/22/16 11:50: Hepatitis A IgM Ab Negative, Hep Bs Antigen Negative, Hep B Core IgM Ab Negative, Hepatitis C Antibody Negative 11/21/16 09:00: Phosphorus 2.9, Magnesium 2.1 11/21/16 09:00: Free T4 0.88 11/21/16 07:31: TSH 3rd Generation 0.34 L 11/21/16 07:31: Hemoglobin A1c 5.9 11/21/16 07:31: Triglycerides 83, Cholesterol 223 H, LDL Cholesterol Direct 121 , HDL Cholesterol 91 H 11/20/16 19:30: Alcohol, Quantitative 64 H 11/20/16 19:30: Salicylates < 1 L, Acetaminophen < 10.0 L 11/20/16 19:30: Sodium 141, Potassium 3.8, Chloride 108 H, Carbon Dioxide 25, Anion Gap 12, BUN 20, Creatinine 1.3, Est GFR ( Amer) > 60, Est GFR (Non- Af Amer) 59, Random Glucose 124 H, Calcium 9.1, Total Bilirubin 0.7, AST 96 H D , ALT 46, Alkaline Phosphatase 74, Total Protein 7.3, Albumin 4.2, Globulin 3.1 , Albumin/Globulin Ratio 1.4 11/20/16 19:30: WBC 5.9, RBC 4.86, Hgb 14.3, Hct 40.3 L, MCV 82.9, MCH 29.4, MCHC 35.5, RDW 15.5 H, Plt Count 254, MPV 9.1, Gran % 54.6, Lymph % (Auto) 36.0 H, [place] % (Auto) 7.0 H, Eos % (Auto) 1.9, Baso % (Auto) 0.5, Gran # 3.22, Lymph # 2.1, [place] # 0.4, Eos # 0.1, Baso # 0.03 Vital Signs Temp Pulse Resp BP Pulse Ox 11/25/16 07:02 98.1 F 74 20 145/95 H 100 11/24/16 16:00 62 160/97 H 11/24/16 07:17 98.2 F 63 135/94 H 11/23/16 16:13 67 159/109 H 11/22/16 20:00 81 149/115 H 11/22/16 07:11 98 F 67 20 148/96 H 11/21/16 16:00 74 128/77 11/21/16 07:33 98.5 F 69 20 138/83 11/21/16 02:27 18 11/20/16 20:13 84 16 136/80 98 11/20/16 17:54 99 F 103 H 18 107/74 98 Consultations:: List each consultation separately and include: 1. Reason for request. 2. Findings. 3. Follow-up Consultations: medical consultation appreciated see more detailed information Summary of Hospital Course include:: 1. Description of specific treatment plan utilized for patients during their course of treatmen. 2. Summarize the time- course for resolution of acute symptoms and/or regressed behaviors. 3. Describe issues identified and worked on during hospitalization. 4. Describe medication utilized. 5. Describe medical problems identified and treated. 6. Reassessment of suicide risk Summary of Hospital Course: Patient is a 51 year old single AA male with a history of depression, alcohol, cocaine, heroin and cannabis use disorder, multiple admissions-most recently detoxed at [facility] 11/10-11/12/16 where he was discharged due to hostile behavior; no current outpatient treatment, 1 vague SA x one year ago who presented to the [facility] emergency department complaining of suicidal ideation. pt was recently d/c from the [facility] for hostile behavior. "Last night and this morning, pt. became emotionally labile, highly threatening, and intimidating and humiliating to the nurses and other patients. He had to be discharged immediately due to his hostile behavior". 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 Patient said "I love myself, I'm not thinking about dying, I am thinkin ghow to get money and straighten up my life". patient did not have any aggressive, inappropriate behavior, patient is friendly , corporative. Patient tolerates all medications well, no side effects observed or reported, aims 0, no EPS. No signs of any type of withdrawals. MSE: Pt was alert, oriented in self, time and place, improvement with concentration, memory is good. Pt deemed to be unreliable historian because of ?malingering, well related to this scenario writer. Pt looks at his chronological age, good personal hygiene, good ADLs, there is no psychomotor agitation/retardation, speech was: WNL, eye contact: is fair, mood described: "I am much better, I am good, thank you for all your help", affect: constricted, but reactive, mood congruent, thought process: goal directed, thought content: denied hearing voices, denied SI/ HI, denied v/t hallucinations, denied paranoid ideation and pt does not appear to be internally preoccupied or responding to internal stimuli, insight / judgment:fair , impulses are well controlled. patient was stabilized on the following medications: Celexa 20 mg daily for depression and anxiety Abilify 5 mg at the nighttime for mood stabilization Benadryl 50 at the nighttime for insomnia Over the course of this hospitalization pt was attending groups, pt also had medication management, had therapeutic milieu. Overall pt improved significantly, pt's affect became brighter, pt was less depressed, has realistic future oriented plans, pt also does not appear to be psychotic, or anxious, pt was socially appropriate, no behavioral issues, pts insight improved as well and soon pt deemed to be ready for discharge. At the time of the discharge pt denied been depressed, denied thoughts of harming self or others, denied psychotic symptoms, and pt does not appeared to be psychotic, denied been anxious, pt is not in imminent danger to self or others, will be following up at [facility] program, information about follow up appointment, time and address provided to the pt, it is patient responsibility to follow up with outpatient clinic, PMD as well as specialists (see SW note for more detailed information). In case pt will need to obtain results of studies pending at discharge pt was provided with contact information of Psychiatric Inpatient unit [phone] as well as Medical Record Department [phone]. Nicotine patch was offered pt doesn't want to be on nicotine patch Counseling about smoking and alcohol cessation provided AA meetings as well as [facility] smoking cessation treatment program information was provided by the pt was provided with prescriptions for all of medications (please see medication reconciliation form) Pt was educated about safety plan in case of worsening of symptoms or in case of suicidal or homicidal ideation call 911 or go to the nearest ER, also was educated to take meds as prescribed and stay away from drugs, pt verbalized understanding. - Diagnosis (1) Alcohol abuse Status: Acute (2) Bipolar 1 disorder Status: Acute (3) Cocaine use disorder, severe, dependence Status: Acute (4) Substance induced mood disorder Status: Acute - Final Diagnosis (DSM 5) Condition upon Discharge: STABLE Disposition: HOME/ ROUTINE Follow-up Treatment Plan: At the time of the discharge pt denied been depressed, denied thoughts of harming self or others, denied psychotic symptoms, and pt does not appeared to be psychotic, denied been anxious, pt is not in imminent danger to self or others, will be following up at [facility], information about follow up appointment, time and address provided to the pt, it is patient responsibility to follow up with outpatient clinic, PMD as well as specialists (see SW note for more detailed information). In case pt will need to obtain results of studies pending at discharge pt was provided with contact information of Psychiatric Inpatient unit [phone] as well as Medical Record Department [phone]. Nicotine patch was offered pt doesn't want to be on nicotine patch Counseling about smoking and alcohol cessation provided AA meetings as well as [facility] smoking cessation treatment program information was provided by the pt was provided with prescriptions for all of medications (please see medication reconciliation form) Pt was educated about safety plan in case of worsening of symptoms or in case of suicidal or homicidal ideation call 911 or go to the nearest ER, also was educated to take meds as prescribed and stay away from drugs, pt verbalized understanding. Prescriptions/Medication Reconciliation: ARIPiprazole [Abilify] 5 mg PO 2000 #14 tab Citalopram [celeXA] 20 mg PO DAILY #14 tab DiphenhydrAMINE [Benadryl] 50 mg PO HS PRN #14 cap PRN Reason: Insomnia Docusate [Colace] 100 mg PO TID #30 cap Folic Acid 1 mg PO DAILY #14 tab Multivitamin Therapeutic Tab [Thera Tab] 1 tab PO 0800 #14 tab Polyethylene Glycol 3350 [Miralax] 17 gm PO BID PRN #14 packet PRN Reason: Constipation Thiamine [Vitamin B1 Tab] 50 mg PO DAILY #14 tab - Smoking Cessation Smoking Cessation Medication prescribed: No Reason for not providing: pt does not want to be on nicotine patch. - Antipsychotic Medications Pt discharged on 2 or more routine antipsychotic medications: No
== END 2016-11-25 13:15 | disposition home or self-care (01) | DRG 430 ==
LOC: ED 17:54 → ERH 20:50 → PSYC 22:22
PROVIDERS: ADMIT Psychiatry & Neurology Psychiatry; ATTEND Psychiatry & Neurology Psychiatry
DX: F31.9 Bipolar disorder, unspecified (principal); F14.20 Cocaine dependence, uncomplicated; R45.851 Suicidal ideations; F10.239 Alcohol dependence with withdrawal, unspecified; F19.94 Other psychoactive substance use, unspecified with psychoactive substance-induced mood disorder; F11.10 Opioid abuse, uncomplicated; E05.90 Thyrotoxicosis, unspecified without thyrotoxic crisis or storm; I10 Essential (primary) hypertension; F17.210 Nicotine dependence, cigarettes, uncomplicated; F43.10 Post-traumatic stress disorder, unspecified; G47.00 Insomnia, unspecified; K59.00 Constipation, unspecified; Z76.5 Malingerer [conscious simulation]; Z91.013 Allergy to seafood; R40.2412 Glasgow coma scale score 13-15, at arrival to emergency department; F12.90 Cannabis use, unspecified, uncomplicated; Y90.3 Blood alcohol level of 60-79 mg/100 ml

== ENCOUNTER 2016-12-02 05:47 | Emergency (ER) | payer MEDICAID ==
[2016-12-02 05:48] VITALS: BMI 29.9
--- NOTE | 2016-12-02 06:12 | ED PDOC ---
Arrival/HPI - General Chief Complaint: Psychiatric Evaluation Time Seen by Provider: 12/02/16 05:49 - History of Present Illness Narrative History of Present Illness (Text): 12/02/16 06:11 Patient presents feeling depressed and suicidal with thoughts of hurting himself denies any chest pain denies any headache denies any dizziness denies any palpitations or shortness of breath denies any alcohol recently hospitalized for same problem signed himself out 12/02/16 06:11 Past Medical History - Provider Review Nursing Documentation Reviewed: Yes - Infectious Disease Hx of Infectious Diseases: None - Cardiac Hx Cardiac Disorders: Yes - Pulmonary Hx Tuberculosis: No - Neurological Hx Seizures: No - HEENT Hx HEENT Disorder: No - Renal Hx Renal Disorder: No - Endocrine/Metabolic Hx Endocrine Disorders: No - Hematological/Oncological Hx Cancer: No (Patient denied) - Integumentary Hx Dermatological Disorder: No - Musculoskeletal/Rheumatological Hx Musculoskeletal Disorders: No Hx Falls: No - Gastrointestinal Hx Gastrointestinal Disorders: No - Genitourinary/Gynecological Hx Genitourinary Disorders: No Hx Sexually Transmitted Diseases: No - Psychiatric Hx Depression: Yes Hx Post Traumatic Stress Disorder: Yes Hx Substance Use: Yes - Anesthesia Hx Anesthesia: No Family/Social History - Physician Review Nursing Documentation Reviewed: Yes Family/Social History: No Known Family HX Smoking Status: Former Smoker Hx Alcohol Use: Yes Hx Substance Use: Yes Allergies/Home Meds Allergies/Adverse Reactions: Allergies shrimp Allergy (Verified 11/21/16 02:18) SWELLING Home Medications: Home Meds Medication Instructions Recorded Confirmed No Known Home Med 11/26/16 12/02/16 Review of Systems - Physician Review All systems were reviewed & negative as marked: Yes - Review of Systems Constitutional: Normal Eyes: Normal ENT: Normal Respiratory: Normal Cardiovascular: Normal Gastrointestinal: Normal Genitourinary Male: Normal Musculoskeletal: Normal Skin: Normal Neurological: Normal Endocrine: Normal Hemo/Lymphatic: Normal Psychiatric: Depression, Suicidal Ideation Physical Exam Vital Signs Reviewed: Yes Vital Signs Temp Pulse Resp BP Pulse Ox 12/02/16 05:55 98.1 F 76 18 148/62 96 Temperature: Afebrile Blood Pressure: Normal Pulse: Regular Respiratory Rate: Normal Appearance: Positive for: Well-Appearing, Non-Toxic, Comfortable Pain Distress: None Mental Status: Positive for: Alert and Oriented X 3 - Systems Exam Head: Present: Atraumatic, Normocephalic Pupils: Present: PERRL Extroacular Muscles: Present: EOMI Conjunctiva: Present: Normal Mouth: Present: Moist Mucous Membranes Neck: Present: Normal Range of Motion Respiratory/Chest: Present: Clear to Auscultation, Good Air Exchange. No: Respiratory Distress, Accessory Muscle Use Cardiovascular: Present: Regular Rate and Rhythm, Normal S1, S2. No: Murmurs Abdomen: Present: Normal Bowel Sounds. No: Tenderness, Distention, Peritoneal Signs Back: Present: Normal Inspection Upper Extremity: Present: Normal Inspection. No: Cyanosis, Edema Lower Extremity: Present: Normal Inspection. No: Edema Neurological: Present: GCS=15, CN II-XII Intact, Speech Normal Skin: Present: Warm, Dry, Normal Color. No: Rashes Psychiatric: Present: Alert, Oriented x 3, Normal Insight, Normal Concentration , Suicidal Ideation Medical Decision Making - Lab Interpretations Lab Results: 12/02/16 06:26 Lab Results 12/02/16 06:26: Urine Color Yellow, Urine Appearance Sl cloudy, Urine pH 6.5, Ur Specific [place] 1.025, Urine Protein 30 H, Urine Glucose (UA) Negative, Urine Ketones Negative, Urine Blood Negative, Urine Nitrate Negative, Urine Bilirubin Negative, Urine Urobilinogen 0.2, Ur Leukocyte Esterase Trace H, Urine RBC 0 - 2, Urine WBC 1 - 3, Ur Epithelial Cells 1 - 3, Urine Bacteria Occ 12/02/16 06:26: WBC 8.7 D, RBC 4.53, Hgb 13.0 L, Hct 37.1 L, MCV 81.9, MCH 28.7 , MCHC 35.0, RDW 15.8 H, Plt Count 281, MPV 9.2, Gran % 65.0, Lymph % (Auto) 25.8, [place] % (Auto) 7.7 H, Eos % (Auto) 1.0 L, Baso % (Auto) 0.5, Gran # 5.63, Lymph # 2.2, [place] # 0.7 H, Eos # 0.1, Baso # 0.04 - RAD Interpretation Radiology Orders: 12/02/16 06:12 CHEST PORTABLE [RAD] Stat - Transfer of Care Patient signed out to Dr:: mukesh bearden and dispo Disposition/Present on Arrival - Present on Arrival Any Indicators Present on Arrival: No History of DVT/PE: No History of Uncontrolled Diabetes: No Urinary Catheter: No History of Decub. Ulcer: No History Surgical Site Infection Following: None - Disposition Have Diagnosis and Disposition been Completed?: Yes Diagnosis: Suicidal ideation Disposition Time: 07:00 Patient Problems: Current Active Problems Problem Status Onset Suicidal ideation Acute Condition: GOOD Forms: [employer] (Maori)
[2016-12-02 06:35] LABS: PH,URINE 6.5 (4.7-8.0); URINE BILIRUBIN NEGATIVE (NEGATIVE); URINE BLOOD NEGATIVE (NEGATIVE); URINE GLUCOSE (UA) NEGATIVE (NEGATIVE); URINE KETONE NEGATIVE (NEGATIVE); URINE LEUKOCYTE ESTERASE TRACE Leu/uL (NEGATIVE); URINE PROTEIN 30 mg/dL (<30 mg/dL); URINE UROBILINOGEN 0.2 E.U./dL (<1 E.U./dL)
[2016-12-02 06:42] LABS: BASO # 0.04 K/mm3 (0.0-2.0); BASO % 0.5 % (0.0-3.0); EOS # 0.1 (0.0-0.7); GRAN # 5.63 (1.4-6.5); HEMATOCRIT 37.1 % (42.0-52.0); LYMPH # 2.2 (1.2-3.4); LYMPH % 25.8 % (22.0-35.0); MEAN CELL VOLUME 81.9 fl (80.0-105.0); MEAN CORPUSCULAR HEMOGLOBIN 28.7 pg (25.0-35.0); MEAN PLATELET VOLUME 9.2 fl (7.0-11.0); MONO # 0.7 (0.1-0.6); MONO % 7.7 % (1.0-6.0); RED CELL DISTRIBUTION WIDTH 15.8 % (11.5-14.5); URINE APPEARANCE SL CLOUDY (CLEAR); URINE COLOR YELLOW (YELLOW); WHITE BLOOD COUNT 8.7 10^3/ul (4.5-11.0)
[2016-12-02 06:45] LABS: ALB/GLOB RATIO 1.3 (1.1-1.8); ALKALINE PHOSPHATASE 71 U/L (38-126); ALT/SGPT 100 U/L (7-56); AST/SGOT 66 U/L (17-59); BILIRUBIN,TOTAL 0.5 mg/dL (0.2-1.3); BLOOD UREA NITROGEN 24 mg/dL (7-21); CALCIUM 9.2 mg/dL (8.4-10.5); CARBON DIOXIDE 28 mmol/L (21-33); CHLORIDE 101 mmol/L (95-110); GFR AFRICAN-AMERICAN > 60; GLUCOSE,RANDOM 108 mg/dL (70-110); POTASSIUM 4.1 mmol/L (3.6-5.0); SODIUM 142 mmol/L (132-148); TOTAL PROTEIN 7.6 g/dL (5.8-8.3)
[2016-12-02 06:48] LABS: URINE RBC 0 - 2 /hpf (0-2)
[2016-12-02 06:49] LABS: URINE BACTERIA OCC (NEG)
--- NOTE | 2016-12-02 07:11 | ED PDOC ---
Physical Exam Vital Signs Temp Pulse Resp BP Pulse Ox 12/02/16 05:55 98.1 F 76 18 148/62 96 Medical Decision Making ED Course and Treatment: 12/02/16 07:00 Case signed out to me by Dr. Swartz. 51 year old patient with complaints of feeling depressed and suicidal with thoughts of hurting himself. Patient will obtain a transfer care note and follow up for PES evaluation. 12/02/16 07:50 EKG: Ordered, reviewed, and independently interpreted the EKG. Rate : 79 BPM Rhythm : NSR Interpretation : T-wave inversion in inferior lateral wave. No changes from previous EKG. Comparison : 11/26/2016 12/02/16 10:00 PES evaluated patient. Nancy from PES discussed with psychiatrist and agree to discharge pateint home with psychiatric follow-up. - Lab Interpretations Lab Results: 12/02/16 06:26 12/02/16 06:26 Lab Results 12/02/16 06:26: Alcohol, Quantitative < 10 12/02/16 06:26: Salicylates < 1 L, Acetaminophen < 10.0 L 12/02/16 06:26: Sodium 142, Potassium 4.1, Chloride 101, Carbon Dioxide 28, Anion Gap 17, BUN 24 H, Creatinine 1.0, Est GFR ( Amer) > 60, Est GFR ( Non-Af Amer) > 60, Random Glucose 108, Calcium 9.2, Total Bilirubin 0.5, AST 66 H D, ALT 100 H, Alkaline Phosphatase 71, Total Protein 7.6, Albumin 4.3, Globulin 3.3, Albumin/Globulin Ratio 1.3 12/02/16 06:26: Urine Color Yellow, Urine Appearance Sl cloudy, Urine pH 6.5, Ur Specific [place] 1.025, Urine Protein 30 H, Urine Glucose (UA) Negative, Urine Ketones Negative, Urine Blood Negative, Urine Nitrate Negative, Urine Bilirubin Negative, Urine Urobilinogen 0.2, Ur Leukocyte Esterase Trace H, Urine RBC 0 - 2, Urine WBC 1 - 3, Ur Epithelial Cells 1 - 3, Urine Bacteria Occ 12/02/16 06:26: WBC 8.7 D, RBC 4.53, Hgb 13.0 L, Hct 37.1 L, MCV 81.9, MCH 28.7 , MCHC 35.0, RDW 15.8 H, Plt Count 281, MPV 9.2, Gran % 65.0, Lymph % (Auto) 25.8, [place] % (Auto) 7.7 H, Eos % (Auto) 1.0 L, Baso % (Auto) 0.5, Gran # 5.63, Lymph # 2.2, [place] # 0.7 H, Eos # 0.1, Baso # 0.04 - RAD Interpretation Radiology Orders: 12/02/16 06:12 CHEST PORTABLE [RAD] Stat - EKG Interpretation Interpreted by ED Physician: Yes Type: 12 lead EKG - Scribe Statement The provider has reviewed the documentation as recorded by the Scribe Annamarie Elizalde Provider Scribe Attestation: All medical record entries made by the Scribe were at my direction and personally dictated by me. I have reviewed the chart and agree that the record accurately reflects my personal performance of the history, physical exam, medical decision making, and the department course for this patient. I have also personally directed, reviewed, and agree with the discharge instructions and disposition. Disposition/Present on Arrival - Present on Arrival Any Indicators Present on Arrival: No History of DVT/PE: No History of Uncontrolled Diabetes: No Urinary Catheter: No History of Decub. Ulcer: No History Surgical Site Infection Following: None - Disposition Have Diagnosis and Disposition been Completed?: Yes Diagnosis: Suicidal ideation Disposition: HOME/ ROUTINE Disposition Time: 10:00 Patient Plan: Discharge Condition: IMPROVED Discharge Instructions (ExitCare): Suicide Prevention for Adults (ED) Additional Instructions: Mr Acevedo, thank you for letting us take care of you today. Your provider was Dr. Calderon. You were treated for Psychiatric Care. The emergency medical care you received today was directed at your acute symptoms. If you were prescribed any medication, please fill it and take as directed. It may take several days for your symptoms to resolve. Return to the Emergency Department if your symptoms worsen, do not improve, or if you have any other problems. FOLLOWUP WITH [facility] [place] [facility] PSY[facility]IATRIC SERVICES INSTRUCTED BY PSYCHIATRY. Please contact your doctor or call one of the physicians/clinics you have been referred to that are listed on the Patient Visit Information form that is included in your discharge packet. Bring any paperwork you were given at discharge with you along with any medications you are taking to your follow up visit. Our treatment cannot replace ongoing medical care by a primary care provider (PCP) outside of the emergency department. Thank you for allowing the [facility] team to be part of your care today. If you had an X-Ray or CT scan: A Radiologist will review the ED reading if any change in treatment is needed we will contact you. If you had a blood, urine, or wound culture: It will take several days for the results, if any change in treatment is needed we will contact you. If you had an STI test: It will take 48 hours for the results. Please call after 1 week if you have not heard back. Referrals: PCP,NO [Primary Care Provider] - Follow up with primary Forms: [employer] (Tongan), WORK NOTE
--- NOTE | 2016-12-02 08:40 | RAD ---
HISTORY: pes COMPARISON: 11/20/2016 FINDINGS: LUNGS: No active pulmonary disease. PLEURA: No significant pleural effusion identified, no pneumothorax apparent. CARDIOVASCULAR: Top-normal heart size as before OSSEOUS STRUCTURES: Right inferior sternoclavicular osseous hypertrophy VISUALIZED UPPER ABDOMEN: Normal. OTHER FINDINGS: None. IMPRESSION: No active disease. No interval pathology
[2016-12-02 09:49] VITALS: O2SAT 100
[2016-12-02 09:57] VITALS: TEMP 98.6
[2016-12-02 09:58] VITALS: BP 152/70; PULSE 70; RESP 19
--- NOTE | 2016-12-02 11:05 | CARD ---
APPROVED REPORT EKG Measurement Heart [id number] <Conclusion> Normal sinus rhythm Possible Left atrial enlargement Left ventricular hypertrophy T wave abnormality, consider inferior ischemia Abnormal ECG
== END 2016-12-02 10:00 | disposition home or self-care (01) ==
LOC: ED 05:47
DX: R45.851 Suicidal ideations (principal); F32.9 Major depressive disorder, single episode, unspecified

== ENCOUNTER 2017-08-23 21:13 | Inpatient (IN) | payer MEDICAID ==
[2017-08-23 21:19] VITALS: BMI 31.1
[2017-08-23 21:41] LABS: BASO # 0.04 K/mm3 (0.0-2.0); BASO % 0.6 % (0.0-3.0); EOS # 0.1 (0.0-0.7); EOS % 1.8 % (1.5-5.0); GRAN # 4.14 (1.4-6.5); GRAN % 58.4 % (50.0-68.0); HEMOGLOBIN 12.4 g/dL (14.0-18.0); LYMPH # 2.4 (1.2-3.4); MEAN CELL VOLUME 82.8 fl (80.0-105.0); MEAN CORPUSCULAR HEMOGLOBIN 28.4 pg (25.0-35.0); MEAN CORPUSCULAR HGB CONC 34.3 g/dl (31.0-37.0); MEAN PLATELET VOLUME 9.2 fl (7.0-11.0); MONO # 0.4 (0.1-0.6); MONO % 5.2 % (1.0-6.0); RBC 4.36 10^6/uL (3.5-6.1); RED CELL DISTRIBUTION WIDTH 15.1 % (11.5-14.5); WHITE BLOOD COUNT 7.1 10^3/ul (4.5-11.0)
[2017-08-23 21:53] LABS: ALB/GLOB RATIO 1.4 (1.1-1.8); ALBUMIN 3.9 g/dL (3.0-4.8); ALT/SGPT 47 U/L (7-56); AST/SGOT 33 U/L (17-59); BLOOD UREA NITROGEN 16 mg/dL (7-21); CALCIUM 8.9 mg/dL (8.4-10.5); GFR AFRICAN-AMERICAN > 60; GFR NON-AFRICAN AMERICAN > 60
[2017-08-23 21:54] LABS: ACETAMINOPHEN < 10.0 ug/ml (10.0-20.0); SALICYLATE < 1 mg/dL (2.0-20.0)
[2017-08-23 22:21] LABS: URINE APPEARANCE CLEAR (CLEAR); URINE BILIRUBIN NEGATIVE (NEGATIVE); URINE BLOOD NEGATIVE (NEGATIVE); URINE COLOR LIGHT YELLOW (YELLOW); URINE GLUCOSE (UA) NEGATIVE (NEGATIVE); URINE LEUKOCYTE ESTERASE NEGATIVE Leu/uL (NEGATIVE); URINE PROTEIN TRACE mg/dL (<30 mg/dL); URINE UROBILINOGEN 0.2 E.U./dL (<1 E.U./dL)
--- NOTE | 2017-08-23 22:21 | ED PDOC ---
Arrival/HPI - General Historian: Patient <Nisha Rodriguez - Last Filed: 08/24/17 01:15> <Nirmal Ibanez - Last Filed: 08/24/17 05:10> - General Chief Complaint: Psychiatric Evaluation Time Seen by Provider: 08/23/17 21:20 - History of Present Illness Narrative History of Present Illness (Text): 08/23/17 22:17 52yr old male presents today for SI. pt states he has hx of depression. pt states he is hearing voices telling him to kill himself. pt states he attempted to overdose on heroin yesterday and today he put a gun in his mouth, but couldn' t pull the trigger. pt denies headache, dizziness or weakness. no CP or sob. no vomiting/diarrhea. no urinary symptoms. no other complaints. (Nisha Rodriguez ) Past Medical History - Provider Review Nursing Documentation Reviewed: Yes - Travel History Have you recently traveled outside [place] w/in the past 3 mons?: No - Infectious Disease Hx of Infectious Diseases: None - Cardiac Hx Hypertension: Yes - Pulmonary Hx Chronic Obstructive Pulmonary Disease (COPD): Yes - Neurological Hx Seizures: No - HEENT Hx HEENT Disorder: No - Renal Hx Renal Disorder: No - Endocrine/Metabolic Hx Endocrine Disorders: No - Hematological/Oncological Hx Blood Disorders: No - Integumentary Hx Dermatological Disorder: No - Musculoskeletal/Rheumatological Hx Musculoskeletal Disorders: No - Gastrointestinal Hx Gastrointestinal Disorders: No - Genitourinary/Gynecological Hx Sexually Transmitted Diseases: No - Psychiatric Hx Anxiety: Yes Hx Bipolar Disorder: Yes Hx Depression: Yes Hx Post Traumatic Stress Disorder: Yes Hx Schizophrenia: Yes Hx Substance Use: Yes - Anesthesia Hx Anesthesia: No Hx Anesthesia Reactions: No Hx Malignant Hyperthermia: No <Nisha Rodriguez - Last Filed: 08/24/17 01:15> Family/Social History - Physician Review Nursing Documentation Reviewed: Yes Family/Social History: Unknown Family HX Smoking Status: Current Some Days Smoker Hx Alcohol Use: Yes Hx Substance Use: Yes Substance used: Marijuana & cocaine <Nisha Rodriguez - Last Filed: 08/24/17 01:15> Allergies/Home Meds <Nisha Rodriguez - Last Filed: 08/24/17 01:15> <Nirmal Ibanez - Last Filed: 08/24/17 05:10> Allergies/Adverse Reactions: Allergies shrimp Allergy (Mild, Verified 07/27/17 23:57) SWELLING shellfish derived Allergy (Verified 07/27/17 23:57) SWELLING Review of Systems - Review of Systems Constitutional: absent: Fatigue, Fevers Respiratory: absent: SOB, Cough Cardiovascular: absent: Chest Pain, Palpitations Gastrointestinal: absent: Abdominal Pain, Nausea, Vomiting Genitourinary Male: absent: Dysuria Musculoskeletal: absent: Arthralgias, Back Pain, Neck Pain Skin: absent: Rash, Pruritis Neurological: absent: Headache, Dizziness Psychiatric: Depression, Suicidal Ideation. absent: Anxiety <Nisha Rodriguez - Last Filed: 08/24/17 01:15> Physical Exam Vital Signs Reviewed: Yes Temperature: Afebrile Blood Pressure: Normal Pulse: Regular Respiratory Rate: Normal Appearance: Positive for: Well-Appearing, Non-Toxic, Comfortable Pain Distress: None Mental Status: Positive for: Alert and Oriented X 3 - Systems Exam Head: Present: Atraumatic Mouth: Present: Moist Mucous Membranes Neck: Present: Normal Range of Motion Respiratory/Chest: Present: Clear to Auscultation, Good Air Exchange. No: Respiratory Distress, Accessory Muscle Use Cardiovascular: Present: Regular Rate and Rhythm, Normal S1, S2. No: Murmurs Abdomen: No: Tenderness, Distention, Peritoneal Signs, Rebound, Guarding Upper Extremity: Present: Normal ROM Lower Extremity: Present: Normal ROM Neurological: Present: GCS=15, Speech Normal Skin: Present: Warm, Dry, Normal Color. No: Rashes Psychiatric: Present: Alert, Oriented x 3, Depressed Mood <Nisha Rodriguez - Last Filed: 08/24/17 01:15> Vital Signs Temp Pulse Resp BP Pulse Ox 08/23/17 23:54 98.4 F 74 18 146/90 100 08/23/17 21:28 98.4 F 72 18 127/85 98 Medical Decision Making <Nisha Rodriguez - Last Filed: 08/24/17 01:15> <Nirmal Ibanez - Last Filed: 08/24/17 05:10> ED Course and Treatment: 08/23/17 22:22 Patient is nontoxic well-appearing in no distress vital signs are stable. pt states that having thoughts of suicide. pt states he put a gun in his mouth. pt placed on 1:1 CBC WNL CMP WNL Tylenol WNL Salicylate WNL Alcohol level WNL Urine drug screen cocaine, marijuana UA; wnl cxr: wnl ekg normal sinus rhythm with sinus arrhythmia at 70 bpm, no st elevations normal axis, normal intervals. pt is medically cleared for PES evaluation Patient was seen and evaluated by PES screener: bria. pt will be held in the ER for psychiatric evaluation by the psychiatrist in the morning. 08/24/17 01:20 case signed out to dr. ibanez pending Psychiatrist eval in the AM. (Nisha Rodriguez) 08/24/17 07:00 Case endorsed to /pt.awaiting evaluation by psychiatrist/final disposition (Nirmal Ibanez) - Lab Interpretations Lab Results: 08/23/17 21:34 08/23/17 21:34 Lab Results 08/23/17 22:13: Urine Opiates Screen Negative, Urine Methadone Screen Negative, Ur Barbiturates Screen Negative, Ur Phencyclidine Scrn Negative, Ur Amphetamines Screen Negative, U Benzodiazepines Scrn Negative, U Oth Cocaine Metabols Positive H, U Cannabinoids Screen Positive H 08/23/17 22:13: Urine Color Light yellow, Urine Appearance Clear, Urine pH 6.0, Ur Specific [place] 1.025, Urine Protein Trace H, Urine Glucose (UA) Negative, Urine Ketones Negative, Urine Blood Negative, Urine Nitrate Negative, Urine Bilirubin Negative, Urine Urobilinogen 0.2, Ur Leukocyte Esterase Negative, Urine RBC Negative, Urine WBC Negative, Ur Epithelial Cells 0 - 2, Urine Bacteria Neg 08/23/17 21:34: Alcohol, Quantitative < 10 08/23/17 21:34: Salicylates < 1 L, Acetaminophen < 10.0 L 08/23/17 21:34: Sodium 142, Potassium 4.0, Chloride 108 H, Carbon Dioxide 24, Anion Gap 14, BUN 16, Creatinine 1.1, Est GFR ( Amer) > 60, Est GFR (Non- Af Amer) > 60, Random Glucose 88, Calcium 8.9, Total Bilirubin 0.1 L, AST 33, ALT 47, Alkaline Phosphatase 68, Total Protein 6.8, Albumin 3.9, Globulin 2.9, Albumin/Globulin Ratio 1.4 08/23/17 21:34: WBC 7.1, RBC 4.36, Hgb 12.4 L, Hct 36.1 L, MCV 82.8, MCH 28.4, MCHC 34.3, RDW 15.1 H, Plt Count 235, MPV 9.2, Gran % 58.4, Lymph % (Auto) 34.0 , [place] % (Auto) 5.2, Eos % (Auto) 1.8, Baso % (Auto) 0.6, Gran # 4.14, Lymph # ( Auto) 2.4, [place] # (Auto) 0.4, Eos # (Auto) 0.1, Baso # (Auto) 0.04 - RAD Interpretation Radiology Orders: 08/23/17 21:20 CHEST PORTABLE [RAD] Stat - PA / TOBACCO FEEDER CATCHER / Resident Statement / has reviewed & agrees with the documentation as recorded. / has examined the patient and agrees with the treatment plan. <Nirmal Ibanez - Last Filed: 08/24/17 05:10> Disposition/Present on Arrival - Present on Arrival History of DVT/PE: No History of Uncontrolled Diabetes: No Urinary Catheter: No History of Decub. Ulcer: No History Surgical Site Infection Following: None <Nisha Rodriguez - Last Filed: 08/24/17 01:15> - Present on Arrival Any Indicators Present on Arrival: No - Disposition Have Diagnosis and Disposition been Completed?: No Disposition Time: 07:00 <Nirmal Ibanez - Last Filed: 08/24/17 05:10> - Disposition Diagnosis: Bipolar 1 disorder Condition: STABLE Referrals: FAMILY PROVIDER,NO [Primary Care Provider] - Follow up with primary Forms: gate5 ([place])
[2017-08-23 22:26] LABS: URINE BACTERIA NEG (NEG); URINE EPITHELIAL CELLS 0 - 2 /hpf (0-5); URINE RBC NEGATIVE /hpf (0-2); URINE WBC NEGATIVE /hpf (0-6)
[2017-08-23 22:48] LABS: BARBITURATES, UR NEGATIVE (NEGATIVE); BENZODIAZEPINES, UR NEGATIVE (NEGATIVE); OPIATES, UR NEGATIVE (NEGATIVE); PHENCYCLIDINE, UR NEGATIVE (NEGATIVE)
--- NOTE | 2017-08-24 08:53 | RAD ---
HISTORY: pes eval COMPARISON: 12/02/2016 FINDINGS: LUNGS: No active pulmonary disease. PLEURA: No significant pleural effusion identified, no pneumothorax apparent. CARDIOVASCULAR: Normal. OSSEOUS STRUCTURES: No significant abnormalities. VISUALIZED UPPER ABDOMEN: Normal. OTHER FINDINGS: None. IMPRESSION: No active disease.
--- NOTE | 2017-08-24 09:57 | CARD ---
APPROVED REPORT EKG Measurement Heart [id number] <Conclusion> Normal sinus rhythm with sinus arrhythmia T wave Inversions-Correlate Clinically.
--- NOTE | 2017-08-24 10:41 | ED PDOC ---
Physical Exam Vital Signs Temp Pulse Resp BP Pulse Ox 08/24/17 09:30 60 18 155/85 H 100 08/24/17 07:19 71 18 136/84 100 08/24/17 05:00 69 18 150/96 H 99 08/24/17 03:00 76 18 148/90 100 08/23/17 23:54 98.4 F 74 18 146/90 100 08/23/17 21:28 98.4 F 72 18 127/85 98 Medical Decision Making ED Course and Treatment: 08/24/17 10:41 Pt signed out to me by Dr. Polanco, pending medical clearance. Patient is medically cleared for psychiatric evaluation. Reassessment Condition: Re-examined - Critical Care Critical Care Minutes: 30 minutes, 45 minutes - Lab Interpretations Lab Results: 08/23/17 21:34 08/23/17 21:34 Lab Results 08/23/17 22:13: Urine Opiates Screen Negative, Urine Methadone Screen Negative, Ur Barbiturates Screen Negative, Ur Phencyclidine Scrn Negative, Ur Amphetamines Screen Negative, U Benzodiazepines Scrn Negative, U Oth Cocaine Metabols Positive H, U Cannabinoids Screen Positive H 08/23/17 22:13: Urine Color Light yellow, Urine Appearance Clear, Urine pH 6.0, Ur Specific [place] 1.025, Urine Protein Trace H, Urine Glucose (UA) Negative, Urine Ketones Negative, Urine Blood Negative, Urine Nitrate Negative, Urine Bilirubin Negative, Urine Urobilinogen 0.2, Ur Leukocyte Esterase Negative, Urine RBC Negative, Urine WBC Negative, Ur Epithelial Cells 0 - 2, Urine Bacteria Neg 08/23/17 21:34: Alcohol, Quantitative < 10 08/23/17 21:34: Salicylates < 1 L, Acetaminophen < 10.0 L 08/23/17 21:34: Sodium 142, Potassium 4.0, Chloride 108 H, Carbon Dioxide 24, Anion Gap 14, BUN 16, Creatinine 1.1, Est GFR ( Amer) > 60, Est GFR (Non- Af Amer) > 60, Random Glucose 88, Calcium 8.9, Total Bilirubin 0.1 L, AST 33, ALT 47, Alkaline Phosphatase 68, Total Protein 6.8, Albumin 3.9, Globulin 2.9, Albumin/Globulin Ratio 1.4 08/23/17 21:34: WBC 7.1, RBC 4.36, Hgb 12.4 L, Hct 36.1 L, MCV 82.8, MCH 28.4, MCHC 34.3, RDW 15.1 H, Plt Count 235, MPV 9.2, Gran % 58.4, Lymph % (Auto) 34.0 , [place] % (Auto) 5.2, Eos % (Auto) 1.8, Baso % (Auto) 0.6, Gran # 4.14, Lymph # ( Auto) 2.4, [place] # (Auto) 0.4, Eos # (Auto) 0.1, Baso # (Auto) 0.04 - RAD Interpretation Radiology Orders: 08/23/17 21:20 CHEST PORTABLE [RAD] Stat - Scribe Statement The provider has reviewed the documentation as recorded by the Scribe Yolanda Haines All medical record entries made by the Scribe were at my direction and personally dictated by me. I have reviewed the chart and agree that the record accurately reflects my personal performance of the history, physical exam, medical decision making, and the department course for this patient. I have also personally directed, reviewed, and agree with the discharge instructions and disposition. Disposition/Present on Arrival - Present on Arrival Any Indicators Present on Arrival: No History of DVT/PE: No History of Uncontrolled Diabetes: No Urinary Catheter: No History of Decub. Ulcer: No History Surgical Site Infection Following: None - Disposition Have Diagnosis and Disposition been Completed?: Yes Diagnosis: Bipolar 1 disorder Disposition: HOSPITALIZED Disposition Time: 11:15 Patient Plan: Admission Patient Problems: Current Active Problems Problem Status Onset Bipolar 1 disorder Acute Condition: STABLE
[2017-08-24 10:56] VITALS: O2SAT 99
[2017-08-24] MEDS ORDERED: Magnesium Hydroxide Susp 30 ml UD PO PRN (11:15)
[2017-08-24] MEDS ORDERED: Alum-Mag Hydrox-Simethicone Susp (30 mL) PO PRN (11:15)
--- NOTE | 2017-08-24 13:16 | CON ---
DATE: 08/24/2017 HISTORY OF PRESENT ILLNESS: In short, the patient is a 52-year-old -[place] male, reported history of bipolar disorder, polysubstance abuse and dependence and most likely antisocial personality disorder. The patient was brought himself to the hospital looking for help for his depressive symptoms and possible suicidal ideation. The patient reported that he is hearing voices that tell him to kill himself. The patient reported that he put a gun in his mouth, but he could not do that. The patient reported that he threw the gun in the water, but this is very questionable because the patient is poor and unreliable historian and the patient has history of lying as well as antisocial personality. The patient was evaluated by PAS worker overnight. Dr. Schmidt recommended to clear him, but emergency physician did not feel comfortable to let him go that is why this remote mortgage underwriter was involved into the patient's care. The patient was seen and examined today in the emergency room. The patient presented to be alert somewhat with constricted affect. The patient reported that he was feeling depressed because of the father's . The patient reported that he has 18-year-old son, but as per previous history, the patient did not have any kids. The patient reported that he was feeling depressed and he relapsed on drugs, which was positive in his urine, cannabis as well as cocaine. The patient reported that he was using opioids as well, but it is not positive in the urine. The patient reported that he was not compliant with the medications for 2 months. The patient reported that he has stable home. 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 This remote mortgage underwriter is very familiar with this patient from the previous admission to the Psychiatric Inpatient Unit, which took place here in [place] in 11/2016. Back then, the patient stayed in the hospital for 5 days, signed himself out. At this time, the patient was in [facility] for 1 day and was discharged against medical advise. The patient has history of being on the following medications, Remeron and Seroquel as well as Norvasc. The patient is willing to continue the same medications. Vital signs seems to be stable. Temperature 98.4, pulse is 60, blood pressure 165/85, respirations 18, oxygen saturation is 100. Medications reviewed. Labs reviewed. Hemoglobin and hematocrit 12.4 and 36.1. Chemistry reviewed. Urinalysis, protein trace. Toxicology is positive for cocaine and cannabis. The patient was not able to contract for safety. The patient has suicidal ideation with a plan to either overdose on drugs or shot himself in his head. MENTAL STATUS EXAMINATION: The patient appears to be alert, oriented, calm and cooperative during the interview, constricted affect. Mood described as depressed and hopeless, I have no support. Thought process concrete. Thought content, the patient denied visual hallucinations, but reported to hear command-type hallucinations. The patient also reported that he has suicidal ideation with a plan to either overdose on pills or drugs or to kill himself with a gunshot. IMPRESSION: Most likely, the patient has bipolar spectrum disorder, rule out antisocial personality disorder. The patient has history of polysubstance abuse and dependence, rule out malingering. PLAN: This remote mortgage underwriter will admit the patient for observation and stabilization. Medications were discussed. The patient was advised that the patient needs to comply with the unit rules and regulations. The patient was advised any disrespectful or demanding personality will be not tolerated, the patient agreed with that. The patient is willing to take medication. Wants to sign in. Seroquel will be started, Remeron will be started. Norvasc will be started as well as needed medications. We will see him on the Psychiatric Inpatient Unit. Thank you very much for letting me participate in the care of your patient. The patient will be admitted for observation and stabilization. Thank you very much. Jeanie Kaiser MD
[2017-08-24 15:54] VITALS: RESP 20
--- NOTE | 2017-08-24 18:43 | PCM.BM ---
<Ghazal Nettles - Last Filed: 08/24/17 18:40> Treatment Plan Problems - Problems identified on initial assessmt High Risk suiciide Date Initiated: 08/24/17 Time Initiated: 18:40 Assessment reference: NA Status: Active hopeless/helpless Date Initiated: 08/24/17 Time Initiated: 18:41 Assessment reference: NA Status: Active feeling of worthlesness Date Initiated: 08/24/17 Time Initiated: 18:42 Assessment reference: NA Status: Active medication noncompliance Date Initiated: 08/24/17 Time Initiated: 18:43 Assessment reference: NA Status: Active altered sleep pattern Date Initiated: 08/24/17 Time Initiated: 18:44 Assessment reference: NA Status: Active Treatment assets and liabiliti Patient Assests: adapts well, cooperative, motivated, self-reliant, ADL independent, physically healthy, negotiates basic needs, cognitively intact, good interpersonal skills Patient Liabilities: live alone, poor support system, substance abuse, legal issue - Milieu Protocol Maintain good personal hygiene: every shift Encourage regular showers, every shift Remind patient to perform daily oral care, every shift Assist patient to perform ADL's Conduct patient checks and document Observation sheet: Q15 minutes Maintain personal safety: every shift Educate patient to report safety concerns to staff, every shift Monitor environment for contraband/sharps Medication safety: Monitor for expected outcome, potential side effects: every shift, Assess barriers to learning: every shift, Assess readiness for medication education: every shift Discharge/Continuing Care - Education Needs Education Needs: Patient Medication, Patient Diagnosis/Disease Process, Patient Coping Skills, Patient Placement options, Patient Community resources, Patient Personal Hygiene/Grooming - Discharge Discharge Criteria: Tolerates medication w/o severe side effects, Free of Suicidal thoughts, Free of Homicidal thoughts, Normal sleep pattern, Ability to care for self <Jeanie Kaiser - Last Filed: 08/25/17 15:36> - Diagnosis (1) Bipolar 1 disorder Status: Acute Interventions: 08/25/17 15:36 Psychoeducation Psychopharmacology/adjustment of medications as needed/ monitoring possible side effects Monitor blood level of mood stabilizers Evaluate pt on daily basis Compliance with medications and follow up appointments Suicide and homicide risk assessment and prevention, coping strategies, safety plan Relapse prevention Reduction of symptoms Improve functional status Family involvement As outpatient: cognitive behavioral therapy (2) Substance abuse Status: Acute Interventions: 08/25/17 15:36 Maintaining sobriety Relapse prevention Possible rehabilitation Motivational interviewing 12-step programs: AA meetings <Monique Beatty - Last Filed: 08/25/17 17:01> Family Contact Family involvement: Famliy/SO not involved
[2017-08-24] MEDS: QUEtiapine 50 mg XR Tab PO SCH (21:31)
[2017-08-25] MEDS ORDERED: Multivitamin With Minerals Tab PO SCH (08:00)
[2017-08-25 09:34] LABS: GLUCOSE,FASTING 140 mg/dL (65-110); HDL CHOLESTEROL 59 mg/dL (29-60)
[2017-08-25] MEDS: QUEtiapine 50 mg XR Tab PO SCH (09:41)
[2017-08-25 09:45] LABS: LDL CHOLESTEROL 114 mg/dL (0-129)
[2017-08-25 09:51] LABS: FREE T4 0.96 ng/dL (0.78-2.19)
--- NOTE | 2017-08-25 15:35 | PCM.PSYCH ---
Initial Psychiatric Evaluation - Initial Psychiatric Evaluation Type of Admission: Voluntary Legal Status: Capacity (patient has capacity to sign consent for treatment) Chief Complaint (in patient's own words): "I came here for support, I was looking for support groups, when able leave the hospital I will be not able to do so, I want to get better, we'll go back to work, I used to work in 2 jobs". Patient's Reaction to Hospitalization: patient was admitted for evaluation and stabilization of depressive symptoms and possible suicidal ideation with a plan to gunshot or jump off the bridge History of Present Illness and Precipitating Events: shortly pt is 52ys old male with previous diagnosis of bipolar disorder, possible antisocial personality disorder, cocaine and cannabis use disorder, pt recently discharged AMA from [facility] August 06, 2017 questionable compliance with medications and follow up, pt reported has been increasingly depressed due to financial difficulties , unstable living situation , patient also reported that on Father's Day he was feeling lonely, patient reported that he had suicidal ideation with a plan to gunshot as well as possible jump off the bridge, but patient changed his mind and came to the hospital looking for help. Patient has history of disrespectful, agitated behavior and administrative discharge us in the past. He initially patient was seen in the emergency room please see initial consultation note for more detailed information. Patient was seen today at the treatment team meeting, patient presented to have good personal hygiene, good ADLs appears to be sleepy, patient reported that he does not feel well, patient was making complains that he was waken up by laborer electroplating to have a blood work done, patient reported that he feels irritable and angry, patient Also reported to feel hopeless, helpless and worthless and guilty. Patient reported that present moment he does not have any thoughts of killing himself but he wants to get better and wants to get treatment especially patient was concentrating on group therapy and support groups. pt was on defensive mode, ready to fight, pt was educated about unit rules and regulations, pt agreed to comply. Patient reported that he has here history of hearing voices "my own voice, male voice", patient denied command type hallucinations. Patient reported that he does not have history of abuse, denied any anxiety symptoms or panic symptoms. Patient reported that he uses drugs in order to help himself with his depression , urine drug screen was positive for cocaine and marijuana. No manic symptoms elicited. Patient has history of antisocial behavior, had history of being discharged from the hospital administratively. Patient reported that he threw gun in the river, patient denied access to guns at this time. SOCIAL HISTORY Patient was born and raised in [place]. His single and denies having any children. Patient is reluctant to discuss his substance-abuse history but does report that he has been drinking two shots of vodka "every now and then" and used marijuana and cocaine three days ago. He has a history of heroin use in the past. Previously detox on two occasionsHe reports smoking two cigarettes daily and defers on nicotine patch when discussed. Morbidity and mortality risks of nicotine use were reviewed with patient PSYCHIATRIC HISTORY Patient has multiple psych admissions, does not participate in aftercare plan, patient was not following up with psychiatrist, did not take any medications. as per h/o from [facility] 11/10/16-11/12/16. [facility] discharge note indicated "Last night and this morning, pt. became emotionally labile, highly threatening, and intimidating and humiliating to the nurses and other patients. He had to be discharged immediately due to his hostile behavior". family history: Patient does not know Medical history: History of hypertension Denied history of abuse 08/23/17 21:34 08/23/17 21:34 Lab Results 08/25/17 09:10: Free T4 0.96, TSH 3rd Generation 0.42 L 08/25/17 09:10: Fasting Glucose 140 H, Triglycerides 107, Cholesterol 204 H, LDL Cholesterol Direct 114, HDL Cholesterol 59 08/23/17 22:13: Urine Opiates Screen Negative, Urine Methadone Screen Negative, Ur Barbiturates Screen Negative, Ur Phencyclidine Scrn Negative, Ur Amphetamines Screen Negative, U Benzodiazepines Scrn Negative, U Oth Cocaine Metabols Positive H, U Cannabinoids Screen Positive H 08/23/17 22:13: Urine Color Light yellow, Urine Appearance Clear, Urine pH 6.0, Ur Specific [place] 1.025, Urine Protein Trace H, Urine Glucose (UA) Negative, Urine Ketones Negative, Urine Blood Negative, Urine Nitrate Negative, Urine Bilirubin Negative, Urine Urobilinogen 0.2, Ur Leukocyte Esterase Negative, Urine RBC Negative, Urine WBC Negative, Ur Epithelial Cells 0 - 2, Urine Bacteria Neg 08/23/17 21:34: Alcohol, Quantitative < 10 08/23/17 21:34: Salicylates < 1 L, Acetaminophen < 10.0 L 08/23/17 21:34: Sodium 142, Potassium 4.0, Chloride 108 H, Carbon Dioxide 24, Anion Gap 14, BUN 16, Creatinine 1.1, Est GFR ( Amer) > 60, Est GFR (Non- Af Amer) > 60, Random Glucose 88, Calcium 8.9, Total Bilirubin 0.1 L, AST 33, ALT 47, Alkaline Phosphatase 68, Total Protein 6.8, Albumin 3.9, Globulin 2.9, Albumin/Globulin Ratio 1.4 08/23/17 21:34: WBC 7.1, RBC 4.36, Hgb 12.4 L, Hct 36.1 L, MCV 82.8, MCH 28.4, MCHC 34.3, RDW 15.1 H, Plt Count 235, MPV 9.2, Gran % 58.4, Lymph % (Auto) 34.0 , [place] % (Auto) 5.2, Eos % (Auto) 1.8, Baso % (Auto) 0.6, Gran # 4.14, Lymph # ( Auto) 2.4, [place] # (Auto) 0.4, Eos # (Auto) 0.1, Baso # (Auto) 0.04 Vital Signs Temp Pulse Pulse Resp BP Pulse Ox 08/25/17 07:10 97.9 F 60 20 137/97 H 08/24/17 14:36 75 20 08/24/17 10:56 97.9 F 56 L 18 155/88 H 99 08/24/17 10:54 97.9 F 56 L 18 155/88 H 99 08/24/17 09:30 60 18 155/85 H 100 08/24/17 07:19 71 18 136/84 100 08/24/17 05:00 69 18 150/96 H 99 08/24/17 03:00 76 18 148/90 100 08/23/17 23:54 98.4 F 74 18 146/90 100 08/23/17 21:28 98.4 F 72 18 127/85 98 Patient was providing inconsistent, conflicting stories, for example patient said that he has 18 year old son and he did not call him during the Father's Day weekend, at the same time during the previous assessment patient denied having kids. Current Medications: Active Medications Generic Name Dose Route Start Last Admin Trade Name Freq PRN Reason Stop Dose Admin Acetaminophen 650 mg 08/24/17 11:15 Tylenol 325mg Tab PO Q4 PRN Pain, Mild (1-3) Al Hydrox/Mg Hydrox/Simethicone 30 ml 08/24/17 11:15 Maalox Plus 30 Ml PO DAILY PRN Upset Stomach Amlodipine Besylate 5 mg 08/25/17 08:00 08/25/17 09:42 Norvasc PO 5 mg DAILY OMID Administration Gabapentin 300 mg 08/24/17 18:00 08/25/17 13:52 Neurontin PO 300 mg TID OMID Administration Protocol Magnesium Hydroxide 30 ml 08/24/17 11:15 Milk Of Magnesia PO DAILY PRN Constipation Mirtazapine 30 mg 08/25/17 10:25 Remeron PO HS OMID Quetiapine Fumarate 150 mg 08/25/17 10:27 Seroquel PO AMHS OMID Protocol Ziprasidone 20 mg 08/24/17 14:04 Geodon Cap PO Q6H PRN psychosis/agitation Protocol Ziprasidone 20 mg 08/24/17 14:04 Geodon Inj IM Q6H PRN severe agitaiton/psychosis Protocol Past Psychiatric History - Past Psychiatric History Previous Treatment History: Inpatient Prior Professional Help: See HPI Prior Psychiatric Treatment: See HPI At what hospital: See HPI Duration: See HPI Nature of Treatment: See HPI Explanation of prior treatment: See HPI History of Abuse: See HPI History of ETOH/Drug Use: See HPI History of Family Illness: See HPI Pertinent Medical Hx (Current Medical&Sleep Prob, Allergies): Allergies Allergy/AdvReac Type Severity Reaction Status Date / Time shrimp Allergy Mild SWELLING Verified 08/24/17 16:07 shellfish derived Allergy SWELLING Verified 08/24/17 16:07 Prazosin HCl [Minipress] 2 mg PO HS #0 cap 06/22/17 Mirtazapine [Remeron] 15 mg PO HS 30 Days #30 tab 08/06/17 QUEtiapine [Seroquel] 100 mg PO HS 30 Days #30 tab 08/06/17 amLODIPine [Norvasc] 5 mg PO DAILY 30 Days #30 tab 08/06/17 Dicyclomine [Bentyl] 20 mg PO TID PRN #15 tab 08/13/17 Famotidine [Pepcid] 20 mg PO BID #10 tab 08/13/17 Ondansetron ODT [Zofran ODT] 4 mg PO Q8 PRN #10 odt 08/13/17 Review of Systems - Review of Systems Systems not reviewed;Unavailable: Acuity of Condition - EENT Eyes: As Per HPI Ears: As Per HPI Nose/Mouth/Throat: As Per HPI - Cardiovascular Cardiovascular: As Per HPI - Respiratory Respiratory: As Per HPI - Gastrointestinal Gastrointestinal: As Per HPI - Genitourinary Genitourinary: As Per HPI - Reproductive: Male Reproductive:Male: As Per HPI - Musculoskeletal Musculoskeletal: As Par HPI - Integumentary Integumentary: As Per HPI - Neurological Neurological: As Per HPI - Psychiatric Psychiatric: As Per HPI - Endocrine Endocrine: As Per HPI - Hematologic/Lymphatic Hematologic: As Per HPI Mental Status Examination - Personal Presentation Personal Presentation: Looks stated age - Affect Affect: Constricted (and irritable), Flat - Motor Activity Motor Activity: Psychomotor Agitation - Reliability in Providing Information Reliability in Providing Information: Poor, due to altered mood - Speech Speech: Organized - Mood Mood: Depressed - Formal Thought Process Formal Thought Process: Hallucinations (self-reported, patient does not appear to be psychotic) - Hallucinations/Delusions Hallucinations: Auditory (denied command type hallucinations) - Obsessions/Compulsions Obsessions: No Compulsions: No DSM 5 DX - DSM 5 DSM 5 Diagnosis: as per history bipolar disorder, most recently mixed episode, severe with psychosis Rule out antisocial personality disorder Polysubstance abuse - Recommended/Plan of Treatment Treatment Recommendations and Plan of Treatment: Milieu/structure/supportive therapy Medical consult will be called for hypertension SW consultation for discharge plan and social issues Med management Remeron will be increased to 30 mg for depression and insomnia Seroquel 100 mg twice a day for psychosis and mood stabilization Neurontin 300 mg 3 times a day for mood stabilization and irritability Family involvement Follow up on labs Will monitor closely Pt was educated about risk/benefits and alternatives of medications, coping strategies (safety plan, suicide prevention), relapse prevention, importance of follow up with psychiatrist and therapist, stay away from drugs/alcohol/smoking Projected ELOS: 3 days Prognosis: fair Discharge Plan and Discharge Criteria: Pt will be not depressed or manic, will be more hopeful, will be not psychotic or anxious, will be not having thoughts of harming self or others, will be tolerating medications well, will not have major side effects, will be able to function, will not pose threat to self or others. - Smoking Cessation Smoking Cessation Initiated: No Reason for not providing: pt refused nicotine patch
--- NOTE | 2017-08-25 18:16 | CP.PCM.PCO ---
Additional Comments - Additional Comments Additional Comments: Medicine consult called for uncontrolled hypertension. Repeat BP reading shows marked improvement despite no intervention. Likely falsely elevated reading. Will formally see patient tomorrow morning.
--- NOTE | 2017-08-26 15:08 | PCM.PYCHPN ---
Psychiatric Progress Note - Psychiatric Progress Note Patient seen today, length of contact: 30 minutes Patient Chief Complaint: "yes ma'am, I feel little better, people treats me nicely, nurses are good, everything is fine" Problems Identified/Issues Discussed: Suicide/ homicide prevention, past psychiatric h/o, current psychiatric symptoms , medical problems, risk/benefits and alternatives of medications, medications compliance, coping strategies, substance abuse h/o, relapse prevention, importance of follow up with psychiatrist and therapist, discharge plan. Medical Problems: uncontrolled hypertension, patient was seen by medical team, discussed with medical i d sales. Please see notes for more detailed information. Diagnostic Results: 08/23/17 21:34 08/23/17 21:34 Lab Results 08/25/17 09:10: RPR Nonreactive 08/25/17 09:10: Free T4 0.96, TSH 3rd Generation 0.42 L 08/25/17 09:10: Fasting Glucose 140 H, Triglycerides 107, Cholesterol 204 H, LDL Cholesterol Direct 114, HDL Cholesterol 59 08/23/17 22:13: Urine Opiates Screen Negative, Urine Methadone Screen Negative, Ur Barbiturates Screen Negative, Ur Phencyclidine Scrn Negative, Ur Amphetamines Screen Negative, U Benzodiazepines Scrn Negative, U Oth Cocaine Metabols Positive H, U Cannabinoids Screen Positive H 08/23/17 22:13: Urine Color Light yellow, Urine Appearance Clear, Urine pH 6.0, Ur Specific [place] 1.025, Urine Protein Trace H, Urine Glucose (UA) Negative, Urine Ketones Negative, Urine Blood Negative, Urine Nitrate Negative, Urine Bilirubin Negative, Urine Urobilinogen 0.2, Ur Leukocyte Esterase Negative, Urine RBC Negative, Urine WBC Negative, Ur Epithelial Cells 0 - 2, Urine Bacteria Neg 08/23/17 21:34: Alcohol, Quantitative < 10 08/23/17 21:34: Salicylates < 1 L, Acetaminophen < 10.0 L 08/23/17 21:34: Sodium 142, Potassium 4.0, Chloride 108 H, Carbon Dioxide 24, Anion Gap 14, BUN 16, Creatinine 1.1, Est GFR ( Amer) > 60, Est GFR (Non- Af Amer) > 60, Random Glucose 88, Calcium 8.9, Total Bilirubin 0.1 L, AST 33, ALT 47, Alkaline Phosphatase 68, Total Protein 6.8, Albumin 3.9, Globulin 2.9, Albumin/Globulin Ratio 1.4 08/23/17 21:34: WBC 7.1, RBC 4.36, Hgb 12.4 L, Hct 36.1 L, MCV 82.8, MCH 28.4, MCHC 34.3, RDW 15.1 H, Plt Count 235, MPV 9.2, Gran % 58.4, Lymph % (Auto) 34.0 , [place] % (Auto) 5.2, Eos % (Auto) 1.8, Baso % (Auto) 0.6, Gran # 4.14, Lymph # ( Auto) 2.4, [place] # (Auto) 0.4, Eos # (Auto) 0.1, Baso # (Auto) 0.04 Vital Signs Temp Pulse Pulse Resp BP Pulse Ox 08/26/17 09:07 69 137/74 08/26/17 07:17 98 F 69 20 137/92 H 08/25/17 16:30 69 139/91 H 08/25/17 15:00 60 171/108 H 08/25/17 07:10 97.9 F 60 20 137/97 H 08/24/17 14:36 75 20 08/24/17 10:56 97.9 F 56 L 18 155/88 H 99 08/24/17 10:54 97.9 F 56 L 18 155/88 H 99 08/24/17 09:30 60 18 155/85 H 100 08/24/17 07:19 71 18 136/84 100 08/24/17 05:00 69 18 150/96 H 99 08/24/17 03:00 76 18 148/90 100 08/23/17 23:54 98.4 F 74 18 146/90 100 08/23/17 21:28 98.4 F 72 18 127/85 98 DSM 5 Symptoms Update: shortly pt is 52ys old male with previous diagnosis of bipolar disorder, possible antisocial personality disorder, cocaine and cannabis use disorder, pt recently discharged AMA from [facility] August 06, 2017 questionable compliance with medications and follow up, pt reported has been increasingly depressed due to financial difficulties , unstable living situation , patient also reported that on Father's Day he was feeling lonely, patient reported that he had suicidal ideation with a plan to gunshot as well as possible jump off the bridge, but patient changed his mind and came to the hospital looking for help. Patient has history of disrespectful, agitated behavior and administrative discharge us in the past. patient was seen today with mental health worker, patient presented with improved personal hygiene, much coma, appreciated. Patient reported that he slept better, patient reported that his mood is improving, patient still irritable but not defensive to compare with yesterday, as per report patient is compliant with the medications, unit rules and regulations, patient has fair appetite and sleep. Patient was seen by medical team, blood pressure is better controlled right now , patient does not have any agitation or aggression. Patient tolerated medication well, denied any side effects, aims 0, no EPS. he shouldn't was advised to take medication as prescribed, was educated about risks , benefits, alternatives of the medications patient said "yes ma'am" Impression: DSM 5 Diagnosis: as per history bipolar disorder, most recently mixed episode, severe with psychosis Rule out antisocial personality disorder Polysubstance abuse Medication Change: Yes Medical Record Reviewed: Yes Consults ordered or reviewed: patient was seen by medical team for hypertension which is better controlled now Mental Status Examination - Cognitive Function Orientation: Person, Place, Situation, Time Memory: Intact Attention: Poor (with improvement) Concentration: Poor (with improvement) Association: WNL Fund of Knowledge: WNL - Mood Mood: Depressed - Affect Affect: Constricted (but reactive and mood congruent) - Formal Thought Process Formal Thought Process: Hallucinations (denied) - Suicidal Ideation Suicidal Ideation: No - Homicidal Ideation Homicidal Ideation: No Goal/Treatment Plan - Goal/Treatment Plan Need for Continued Stay: Remain at risks for inpatient hospitalization, Severe depression anxiety, Discharge may exacerbated symptoms, Severe functional impairment Progress Toward Problem(s) and Goals/Treatment Plan: Milieu/structure/supportive therapy Medical consult will be called for hypertension SW consultation for discharge plan and social issues Med management Remeron 30 mg for depression and insomnia Seroquel 100 mg twice a day for psychosis and mood stabilization Neurontin 300 mg 3 times a day for mood stabilization and irritability Family involvement Follow up on labs Will monitor closely Pt was educated about risk/benefits and alternatives of medications, coping strategies (safety plan, suicide prevention), relapse prevention, importance of follow up with psychiatrist and therapist, stay away from drugs/alcohol/smoking Estimated Date of D/C: 08/28/17 (we'll monitor closely)
--- NOTE | 2017-08-26 15:17 | CP.PCM.CON ---
<SolaNehal - Last Filed: 08/26/17 15:07> History of Present Illness - History of Present Illness History of Present Illness: Nehal Selby, PGY1, Medicine Consult Note for Dr Shane: Reason for consult: hypertension 52 year old male with PMH bipolar/schizophrenia, COPD, cocaine abuse, HTN, hematochezia, nonobstructive CAD, presents for depression and suicidal ideations. Pt states that he has been depressed for past year, since his mother and twin sister . Recently, he wanted to hurt himself, he describes "putting a gun down his throat." But was unable to pull the trigger. Pt reports occasional headaches due to high BP, he states that he last took his Norvasc 5 mg, 6 months ago. He does not have a PMD, mostly got his meds refilled from ED visits. Currently denies headache, weakness, dizziness, cp, sob , abdominal pain, leg swelling, urinary symptoms. Pt reports a cardiac cath 6 months ago at [facility], no stents placed. 12 point ROS obtained and negative, except as per HPI. PMH: bipolar/schizophrenia, COPD, cocaine abuse, HTN, hematochezia, nonobstructive CAD PSH: Denies Allergies: shrimp, shellfish FH: CT in family Social Hx: Current smoker. 2 cigs/day for past 10 years. No drinking. Uses cocaine and marijuana weekly. Lives with girlfriend in [place]. Home meds: prazosin, remeron, norvasc 5 mg daily, seroquel, prazosin, zofran prn , pepcid, dicyclomine PMD: denies Review of Systems - Review of Systems All systems: reviewed and no additional remarkable complaints except Review of Systems: as per HPI Past Patient History - Infectious Disease Hx of Infectious Diseases: None - Past Medical History & Family History Past Medical History?: Yes - Past Social History Smoking Status: Current Some Days Smoker - CARDIAC Hx Hypertension: Yes - PULMONARY Hx Chronic Obstructive Pulmonary Disease (COPD): Yes - NEUROLOGICAL Hx Seizures: No - HEENT Hx HEENT Problems: No - RENAL Hx Chronic Kidney Disease: No - ENDOCRINE/METABOLIC Hx Endocrine Disorders: No - HEMATOLOGICAL/ONCOLOGICAL Hx Blood Disorders: No - INTEGUMENTARY Hx Dermatological Problems: No - MUSCULOSKELETAL/RHEUMATOLOGICAL Hx Musculoskeletal Disorders: No - GASTROINTESTINAL Hx Gastrointestinal Disorders: No - GENITOURINARY/GYNECOLOGICAL Hx Sexually Transmitted Disorders: No - PSYCHIATRIC Hx Depression: Yes Hx Substance Use: No - SURGICAL HISTORY Hx Surgeries: No - ANESTHESIA Hx Anesthesia: No Hx Anesthesia Reactions: No Hx Malignant Hyperthermia: No Meds Allergies/Adverse Reactions: Allergies Allergy/AdvReac Type Severity Reaction Status Date / Time shrimp Allergy Mild SWELLING Verified 08/24/17 16:07 shellfish derived Allergy SWELLING Verified 08/24/17 16:07 - Medications Medications: Current Medications Acetaminophen (Tylenol 325mg Tab) 650 mg PO Q4 PRN PRN Reason: Pain, Mild (1-3) Al Hydrox/Mg Hydrox/Simethicone (Maalox Plus 30 Ml) 30 ml PO DAILY PRN PRN Reason: Upset Stomach Amlodipine Besylate (Norvasc) 5 mg PO DAILY [facility] Last Admin: 08/26/17 09:07 Dose: 5 mg Gabapentin (Neurontin) 300 mg PO TID [facility] PRN Reason: Protocol Last Admin: 08/26/17 12:41 Dose: 300 mg Magnesium Hydroxide (Milk Of Magnesia) 30 ml PO DAILY PRN PRN Reason: Constipation Mirtazapine (Remeron) 30 mg PO HS [facility] Last Admin: 08/25/17 22:09 Dose: 30 mg Quetiapine Fumarate (Seroquel) 150 mg PO AMHS [facility] PRN Reason: Protocol Last Admin: 08/26/17 09:08 Dose: 150 mg Ziprasidone (Geodon Cap) 20 mg PO Q6H PRN; Protocol PRN Reason: psychosis/agitation Ziprasidone (Geodon Inj) 20 mg IM Q6H PRN; Protocol PRN Reason: severe agitaiton/psychosis Physical Exam - Constitutional Appears: Non-toxic, No Acute Distress - Head Exam Head Exam: ATRAUMATIC, NORMOCEPHALIC - Eye Exam Eye Exam: EOMI, PERRL. absent: Conjunctival injection, Nystagmus, Scleral icterus Pupil Exam: NORMAL ACCOMODATION, PERRL. absent: Fixed, Irregular, Miosis, Unequal - ENT Exam ENT Exam: Mucous Membranes Moist - Neck Exam Neck exam: Positive for: Full Rom - Respiratory Exam Respiratory Exam: Clear to Auscultation Bilateral, NORMAL BREATHING PATTERN. absent: Accessory Muscle Use, Rhonchi, Wheezes, Stridor - Cardiovascular Exam Cardiovascular Exam: RRR, +S1, +S2. absent: Systolic Murmur - GI/Abdominal Exam GI & Abdominal Exam: Normal Bowel Sounds, Soft. absent: Distended, Firm, Guarding, Mass, Organomegaly, Rebound, Rigid, Tenderness - Extremities Exam Extremities exam: Positive for: normal inspection. Negative for: calf tenderness, pedal edema - Back Exam Back exam: NORMAL INSPECTION - Neurological Exam Neurological exam: Alert, Oriented x3 - Psychiatric Exam Psychiatric exam: Normal Affect, Normal Mood - Skin Skin Exam: Dry, Normal Color, Warm Results - Vital Signs Recent Vital Signs: Last Vital Signs Temp 98 F 08/26/17 07:17 Pulse 69 08/26/17 09:07 Resp 20 08/26/17 07:17 BP 137/74 08/26/17 09:07 Pulse Ox 99 08/24/17 10:56 - Labs Result Diagrams: 08/23/17 21:34 08/23/17 21:34 Labs: Laboratory Results - last 24 hr 08/25/17 09:10 RPR Nonreactive Assessment & Plan - Assessment and Plan (Free Text) Assessment: 52 year old male with PMH HTN, COPD, cocaine abuse, bipolar, schiophrenia, admitted to psychiatry unit for depression/suicidal ideations. Medicine consulted for management of HTN: HTN: - Pt stopped taking home med norvasc 5 mg daily for past 6 months. Pt has no PMD , ED physicians prescribed him norvasc some time ago. - pt denies history of constipation, leg swelling. - BP trends reviewed this admission, can continue with Norvasc 5 mg PO daily. - If BP rises >140/80s, can increase Norvasc to 10 mg PO daily. - cxr: wnl - ekg normal sinus rhythm with sinus arrhythmia at 70 bpm, no st elevations normal axis, normal intervals. - Monitor - avoid beta blockers in setting of cocaine abuse Depression/SI: - as per psych Thank you for your consult. Please reconsult us if necessary. Case seen and discussed with Dr Shane. Nehal Selby, PGY1 - Date & Time Date: 08/26/17 Time: 15:24 <Мария Shane - Last Filed: 08/26/17 17:29> Meds - Medications Medications: Current Medications Acetaminophen (Tylenol 325mg Tab) 650 mg PO Q4 PRN PRN Reason: Pain, Mild (1-3) Al Hydrox/Mg Hydrox/Simethicone (Maalox Plus 30 Ml) 30 ml PO DAILY PRN PRN Reason: Upset Stomach Amlodipine Besylate (Norvasc) 5 mg PO DAILY [facility] Last Admin: 08/26/17 09:07 Dose: 5 mg Gabapentin (Neurontin) 300 mg PO TID [facility] PRN Reason: Protocol Last Admin: 08/26/17 12:41 Dose: 300 mg Magnesium Hydroxide (Milk Of Magnesia) 30 ml PO DAILY PRN PRN Reason: Constipation Mirtazapine (Remeron) 30 mg PO HS [facility] Last Admin: 08/25/17 22:09 Dose: 30 mg Quetiapine Fumarate (Seroquel) 150 mg PO AMHS [facility] PRN Reason: Protocol Last Admin: 08/26/17 09:08 Dose: 150 mg Ziprasidone (Geodon Cap) 20 mg PO Q6H PRN; Protocol PRN Reason: psychosis/agitation Ziprasidone (Geodon Inj) 20 mg IM Q6H PRN; Protocol PRN Reason: severe agitaiton/psychosis Results - Vital Signs Recent Vital Signs: Last Vital Signs Temp 98 F 08/26/17 07:17 Pulse 69 08/26/17 09:07 Resp 20 08/26/17 07:17 BP 137/74 08/26/17 09:07 Pulse Ox 99 08/24/17 10:56 - Labs Result Diagrams: 08/23/17 21:34 08/23/17 21:34 Attending/Attestation - Attestation I have personally seen and examined this patient.: Yes I have fully participated in the care of the patient.: Yes I have reviewed all pertinent clinical information: Yes Notes (Text): 08/26/17 17:25 52 year old male with past medical history of hypertension, substance abuse and schizophrenia currently admitted for depressed mood. Medical consultation was requested for evaluation of hypertension. Patient admits to medication noncompliance and was counselled. Continue with norvasc 5 mg. If BP continues to be elevated can increase to 10 mg. He was counselled on smoking cessation. He was counselled on risks of continued substance abuse. Thank you Dr. Kaiser for allowing us to participate in the care of this patient. Please re-consult as needed. Мария Shane MD Hospitalist.
[2017-08-27 07:03] VITALS: PULSE 100
[2017-08-27 07:15] VITALS: TEMP 96.2
[2017-08-27 07:35] VITALS: BP 136/104
--- NOTE | 2017-08-27 17:28 | PCM.PYCHDC ---
Mental Status Examination - Mental Status Examination Orientation: Person, Place, Situation, Time Memory: Intact Mood: Neutral Affect: Broad (and mood congruent) Speech: Appropriate Attention: WNL Concentration: WNL Association: WNL Fund of Knowledge: WNL Formal Thought Process: No Impairment Description of patient's judgement and insight: Pt has improved insight into mental and medical illness, pt was compliant with medications and unit rules and regulations, pt was going to groups, was calm, cooperative, socially appropriate, no behavioral incidents, no agitation, no aggression. Psychotic Thoughts and Behaviors: Pt denied v/a/t hallucinations, denied paranoid ideations, pt does not appear to be psychotic, and thought process is goal directed. Suicidal Ideation: No Current Homicidal Ideation?: No Plan: pt adamantly denied thoughts of harming self or others denied intent or plan. Discharge Summary - Discharge Note Reason for Hospitalization: patient was admitted for evaluation and stabilization of depressive symptoms and possible suicidal ideation with a plan to gunshot or jump off the bridge most likely it was a lie because pt was giving inconsistent stories on top of that pt denied assess to guns, denied intent or plan to kill self or others Psychiatric History (includes Medical, Family, Personal Hx): See HPI Laboratory Data: 08/23/17 21:34 08/23/17 21:34 Lab Results 08/25/17 09:10: RPR Nonreactive 08/25/17 09:10: Free T4 0.96, TSH 3rd Generation 0.42 L 08/25/17 09:10: Fasting Glucose 140 H, Triglycerides 107, Cholesterol 204 H, LDL Cholesterol Direct 114, HDL Cholesterol 59 08/23/17 22:13: Urine Opiates Screen Negative, Urine Methadone Screen Negative, Ur Barbiturates Screen Negative, Ur Phencyclidine Scrn Negative, Ur Amphetamines Screen Negative, U Benzodiazepines Scrn Negative, U Oth Cocaine Metabols Positive H, U Cannabinoids Screen Positive H 08/23/17 22:13: Urine Color Light yellow, Urine Appearance Clear, Urine pH 6.0, Ur Specific [place] 1.025, Urine Protein Trace H, Urine Glucose (UA) Negative, Urine Ketones Negative, Urine Blood Negative, Urine Nitrate Negative, Urine Bilirubin Negative, Urine Urobilinogen 0.2, Ur Leukocyte Esterase Negative, Urine RBC Negative, Urine WBC Negative, Ur Epithelial Cells 0 - 2, Urine Bacteria Neg 08/23/17 21:34: Alcohol, Quantitative < 10 08/23/17 21:34: Salicylates < 1 L, Acetaminophen < 10.0 L 08/23/17 21:34: Sodium 142, Potassium 4.0, Chloride 108 H, Carbon Dioxide 24, Anion Gap 14, BUN 16, Creatinine 1.1, Est GFR ( Amer) > 60, Est GFR (Non- Af Amer) > 60, Random Glucose 88, Calcium 8.9, Total Bilirubin 0.1 L, AST 33, ALT 47, Alkaline Phosphatase 68, Total Protein 6.8, Albumin 3.9, Globulin 2.9, Albumin/Globulin Ratio 1.4 08/23/17 21:34: WBC 7.1, RBC 4.36, Hgb 12.4 L, Hct 36.1 L, MCV 82.8, MCH 28.4, MCHC 34.3, RDW 15.1 H, Plt Count 235, MPV 9.2, Gran % 58.4, Lymph % (Auto) 34.0 , [place] % (Auto) 5.2, Eos % (Auto) 1.8, Baso % (Auto) 0.6, Gran # 4.14, Lymph # ( Auto) 2.4, Morrison # (Auto) 0.4, Eos # (Auto) 0.1, Baso # (Auto) 0.04 Vital Signs Temp Pulse Pulse Resp BP Pulse Ox 08/27/17 07:34 96.2 F L 100 H 20 136/104 H 08/27/17 07:13 96.2 F L 100 H 20 146/103 H 08/27/17 07:00 100 H 146/103 H 08/26/17 16:00 89 130/75 08/26/17 09:07 69 137/74 08/26/17 07:17 98 F 69 20 137/92 H 08/25/17 16:30 69 139/91 H 08/25/17 15:00 60 171/108 H 08/25/17 07:10 97.9 F 60 20 137/97 H 08/24/17 14:36 75 20 08/24/17 10:56 97.9 F 56 L 18 155/88 H 99 08/24/17 10:54 97.9 F 56 L 18 155/88 H 99 08/24/17 09:30 60 18 155/85 H 100 08/24/17 07:19 71 18 136/84 100 08/24/17 05:00 69 18 150/96 H 99 08/24/17 03:00 76 18 148/90 100 08/23/17 23:54 98.4 F 74 18 146/90 100 08/23/17 21:28 98.4 F 72 18 127/85 98 Consultations:: List each consultation separately and include: 1. Reason for request. 2. Findings. 3. Follow-up Consultations: patient was seen by medical team for hypertension which is better controlled now Summary of Hospital Course include:: 1. Description of specific treatment plan utilized for patients during their course of treatmen. 2. Summarize the time- course for resolution of acute symptoms and/or regressed behaviors. 3. Describe issues identified and worked on during hospitalization. 4. Describe medication utilized. 5. Describe medical problems identified and treated. 6. Reassessment of suicide risk Summary of Hospital Course: shortly pt is 52ys old male with previous diagnosis of bipolar disorder, possible antisocial personality disorder, cocaine and cannabis use disorder, pt recently discharged AMA from [facility] August 06, 2017 questionable compliance with medications and follow up, pt reported has been increasingly depressed due to financial difficulties , unstable living situation , patient also reported that on Father's Day he was feeling lonely, patient reported that he had suicidal ideation with a plan to gunshot as well as possible jump off the bridge, but patient changed his mind and came to the hospital looking for help. Patient has history of disrespectful, agitated behavior and administrative discharge us in the past. He initially patient was seen in the emergency room please see initial consultation note for more detailed information. pt was evaluated at treatment team meeting, patient presented to have good personal hygiene, good ADLs appears to be sleepy, patient reported that he does not feel well, patient was making complains that he was waken up by research lab assistant to have a blood work done, patient reported that he feels irritable and angry, patient Also reported to feel hopeless, helpless and worthless and guilty. Patient reported that present moment he does not have any thoughts of killing himself but he wants to get better and wants to get treatment especially patient was concentrating on group therapy and support groups. pt was on defensive mode, ready to fight, pt was educated about unit rules and regulations, pt agreed to comply. Patient reported that he has here history of hearing voices "my own voice, male voice", patient denied command type hallucinations. but pt did not appeared to be internally preoccupied or responding to internal stimuli. Patient reported that he does not have history of abuse, denied any anxiety symptoms or panic symptoms. Patient reported that he uses drugs in order to help himself with his depression , urine drug screen was positive for cocaine and marijuana. No manic symptoms elicited. Patient has history of antisocial behavior, had history of being discharged from the hospital administratively. Patient reported that he threw gun in the river, patient denied access to guns at this time. moreover this wrier could not exclude that pt was fabricating stories in order to be admitted, pt also had a secondary gain at the time of admission pt asked SW to fax letter to his ship officer about his admission SOCIAL HISTORY Patient was born and raised in [place]. His single and denies having any children. Patient is reluctant to discuss his substance-abuse history but does report that he has been drinking two shots of vodka "every now and then" and used marijuana and cocaine three days ago. He has a history of heroin use in the past. Previously detox on two occasions. He reports smoking two cigarettes daily and defers on nicotine patch when discussed. Morbidity and mortality risks of nicotine use were reviewed with patient PSYCHIATRIC HISTORY Patient has multiple psych admissions, does not participate in aftercare plan, patient was not following up with psychiatrist, did not take any medications. as per h/o from [facility] 11/10/16-11/12/16. [facility] discharge note indicated "Last night and this morning, pt. became emotionally labile, highly threatening, and intimidating and humiliating to the nurses and other patients. He had to be discharged immediately due to his hostile behavior". family history: Patient does not know Medical history: History of hypertension Denied history of abuse 08/23/17 21:34 08/23/17 21:34 Lab Results 08/25/17 09:10: Free T4 0.96, TSH 3rd Generation 0.42 L 08/25/17 09:10: Fasting Glucose 140 H, Triglycerides 107, Cholesterol 204 H, LDL Cholesterol Direct 114, HDL Cholesterol 59 08/23/17 22:13: Urine Opiates Screen Negative, Urine Methadone Screen Negative, Ur Barbiturates Screen Negative, Ur Phencyclidine Scrn Negative, Ur Amphetamines Screen Negative, U Benzodiazepines Scrn Negative, U Oth Cocaine Metabols Positive H, U Cannabinoids Screen Positive H 08/23/17 22:13: Urine Color Light yellow, Urine Appearance Clear, Urine pH 6.0, Ur Specific [place] 1.025, Urine Protein Trace H, Urine Glucose (UA) Negative, Urine Ketones Negative, Urine Blood Negative, Urine Nitrate Negative, Urine Bilirubin Negative, Urine Urobilinogen 0.2, Ur Leukocyte Esterase Negative, Urine RBC Negative, Urine WBC Negative, Ur Epithelial Cells 0 - 2, Urine Bacteria Neg 08/23/17 21:34: Alcohol, Quantitative < 10 08/23/17 21:34: Salicylates < 1 L, Acetaminophen < 10.0 L 08/23/17 21:34: Sodium 142, Potassium 4.0, Chloride 108 H, Carbon Dioxide 24, Anion Gap 14, BUN 16, Creatinine 1.1, Est GFR ( Amer) > 60, Est GFR (Non- Af Amer) > 60, Random Glucose 88, Calcium 8.9, Total Bilirubin 0.1 L, AST 33, ALT 47, Alkaline Phosphatase 68, Total Protein 6.8, Albumin 3.9, Globulin 2.9, Albumin/Globulin Ratio 1.4 08/23/17 21:34: WBC 7.1, RBC 4.36, Hgb 12.4 L, Hct 36.1 L, MCV 82.8, MCH 28.4, MCHC 34.3, RDW 15.1 H, Plt Count 235, MPV 9.2, Gran % 58.4, Lymph % (Auto) 34.0 , [place] % (Auto) 5.2, Eos % (Auto) 1.8, Baso % (Auto) 0.6, Gran # 4.14, Lymph # ( Auto) 2.4, [place] # (Auto) 0.4, Eos # (Auto) 0.1, Baso # (Auto) 0.04 Vital Signs Temp Pulse Pulse Resp BP Pulse Ox 08/25/17 07:10 97.9 F 60 20 137/97 H 08/24/17 14:36 75 20 08/24/17 10:56 97.9 F 56 L 18 155/88 H 99 08/24/17 10:54 97.9 F 56 L 18 155/88 H 99 08/24/17 09:30 60 18 155/85 H 100 08/24/17 07:19 71 18 136/84 100 08/24/17 05:00 69 18 150/96 H 99 08/24/17 03:00 76 18 148/90 100 08/23/17 23:54 98.4 F 74 18 146/90 100 08/23/17 21:28 98.4 F 72 18 127/85 98 Patient was providing inconsistent, conflicting stories, for example patient said that he has 18 year old son and he did not call him during the Father's Day weekend, at the same time during the previous assessment patient denied having kids. patient will stabilize on the following medications: Remeron 30 mg for depression and insomnia Seroquel 100 mg twice a day for psychosis and mood stabilization Neurontin 300 mg 3 times a day for mood stabilization and irritability Norvasc 5 mg for hypertension, patient was seen by medical team, she notes for more detailed information. Over the course of this hospitalization pt was attending groups, pt also had medication management, had therapeutic milieu. Overall pt improved significantly, irritability subsided, patient was not psychotic, had good appetite and sleep, was attending groups regularly. This admission patient did not have any agitation or aggression or disrespectful behavior, but at the same time patient was giving bad advised to other patients how to krystina this Hospital and what to do in the future to get settlement, this behavior was not appreciated, pt was redirected couple of times by the staff. pt was socially appropriate, no behavioral issues, pt deemed to be ready for discharge. At the time of the discharge pt denied been depressed, denied thoughts of harming self or others, denied psychotic symptoms, and pt does not appeared to be psychotic, denied been anxious, pt is not in imminent danger to self or others, will be following up at [facility], information about follow up appointment, time and address provided to the pt, it is patient responsibility to follow up with outpatient clinic, PMD as well as specialists (see SW note for more detailed information). In case pt will need to obtain results of studies pending at discharge pt was provided with contact information of Psychiatric Inpatient unit [phone] as well as Medical Record Department [phone]. Nicotine patch was offered Naltrexone treatment was offered, but pt refused Counseling about smoking and alcohol cessation provided AA meetings as well as smoking cessation treatment program information was provided by the pt was provided with prescriptions for all of medications (please see medication reconciliation form) Pt was educated about safety plan in case of worsening of symptoms or in case of suicidal or homicidal ideation call 911 or go to the nearest ER, also was educated to take meds as prescribed and stay away from drugs, pt verbalized understanding. - Diagnosis (1) Bipolar 1 disorder Status: Chronic Priority: Medium (2) Substance abuse Status: Chronic Priority: High - Final Diagnosis (DSM 5) Condition upon Discharge: IMPROVED DSM 5: r/o malingering r/o antisocial personality disorder Disposition: HOME/ ROUTINE Follow-up Treatment Plan: In case pt will need to obtain results of studies pending at discharge pt was provided with contact information of Psychiatric Inpatient unit [phone] as well as Medical Record Department [phone]. Nicotine patch was offered Naltrexone treatment was offered, but pt refused Counseling about smoking and alcohol cessation provided AA meetings as well as smoking cessation treatment program information was provided by the pt was provided with prescriptions for all of medications (please see medication reconciliation form) Pt was educated about safety plan in case of worsening of symptoms or in case of suicidal or homicidal ideation call 911 or go to the nearest ER, also was educated to take meds as prescribed and stay away from drugs, pt verbalized understanding. Prescriptions/Medication Reconciliation: amLODIPine [Norvasc] 5 mg PO DAILY #14 tab Gabapentin [Neurontin] 300 mg PO TID #45 cap Mirtazapine [Remeron] 30 mg PO HS #14 tablet QUEtiapine [SEROquel XR] 300 mg PO HS #14 ter - Smoking Cessation Smoking Cessation Medication prescribed: No Reason for not providing: pt refused
== END 2017-08-27 11:04 | disposition home or self-care (01) | DRG 430 ==
LOC: ED 21:13 → ERH 08-24 10:13 → UNDOADMIN 08-24 10:21 → ERH 08-24 10:21 → PSYC 08-24 11:08
PROVIDERS: ADMIT Psychiatry & Neurology Psychiatry; ATTEND Psychiatry & Neurology Psychiatry
DX: F31.9 Bipolar disorder, unspecified (principal); F14.90 Cocaine use, unspecified, uncomplicated; J44.9 Chronic obstructive pulmonary disease, unspecified; F20.9 Schizophrenia, unspecified; F12.90 Cannabis use, unspecified, uncomplicated; F17.210 Nicotine dependence, cigarettes, uncomplicated; F60.2 Antisocial personality disorder; F43.10 Post-traumatic stress disorder, unspecified; R45.851 Suicidal ideations; G47.00 Insomnia, unspecified; I10 Essential (primary) hypertension; I25.10 Atherosclerotic heart disease of native coronary artery without angina pectoris; Z91.14 Patient's other noncompliance with medication regimen; Z91.013 Allergy to seafood

== ENCOUNTER 2017-11-30 06:01 | Emergency (ER) | payer MEDICAID ==
[2017-11-30 06:16] VITALS: O2SAT 98
[2017-11-30 07:47] LABS: HEMOGLOBIN 12.1 g/dL (14.0-18.0); MEAN CELL VOLUME 81.8 fl (80.0-105.0); MEAN CORPUSCULAR HEMOGLOBIN 27.8 pg (25.0-35.0); MEAN PLATELET VOLUME 9.9 fl (7.0-11.0); RBC 4.35 10^6/uL (3.5-6.1); RED CELL DISTRIBUTION WIDTH 15.5 % (11.5-14.5); WHITE BLOOD COUNT 7.6 10^3/ul (4.5-11.0)
[2017-11-30 07:57] LABS: ALB/GLOB RATIO 1.3 (1.1-1.8); ALBUMIN 3.9 g/dL (3.0-4.8); ALT/SGPT 43 U/L (7-56); AST/SGOT 36 U/L (17-59); BLOOD UREA NITROGEN 18 mg/dL (7-21); GFR NON-AFRICAN AMERICAN > 60
[2017-11-30 08:08] LABS: TROPONIN I < 0.01 ng/mL
--- NOTE | 2017-11-30 08:53 | RAD ---
HISTORY: Not provided. COMPARISON: None available. TECHNIQUE: Chest PA and lateral FINDINGS: Examination limited by habitus and hypoinflation. LUNGS: Probable infiltrate medial right upper and inferior right upper lobe. Interstitial prominence may reflect infection or edema. Please note that chest x-ray has limited sensitivity for the detection of pulmonary masses. PLEURA: No significant pleural effusion identified. No definite pneumothorax . CARDIOVASCULAR: Cardiomegaly. OSSEOUS STRUCTURES: Degenerative changes. VISUALIZED UPPER ABDOMEN: Unremarkable. OTHER FINDINGS: None. IMPRESSION: Probable infiltrate medial right upper and inferior right upper lobe. Interstitial prominence may reflect infection or edema. Recommend follow-up to resolution.
[2017-11-30] MEDS ORDERED: Albuterol 0.083% Inhal Sol (2.5 mg/3 mL) UD ONE (09:00)
[2017-11-30 09:40] LABS: HDL CHOLESTEROL 49 mg/dL (29-60)
[2017-11-30 09:50] LABS: LDL CHOLESTEROL 120 mg/dL (0-129)
--- NOTE | 2017-11-30 10:01 | CARD ---
APPROVED REPORT Date of service: 11/30/2017 EKG Measurement Heart [id number] <Conclusion> Normal sinus rhythm LVH by voltage STTW changes c/w ischemia No change
[2017-11-30 11:07] LABS: B-TYPE NATRIURETIC PEPTIDE 51 pg/mL (0-450)
[2017-11-30 12:53] VITALS: BMI 30.7
[2017-11-30 13:28] VITALS: BP 136/86; PULSE 77; RESP 17; TEMP 97.7
== END 2017-11-30 13:25 | disposition home or self-care (01) ==
LOC: ED 06:01
DX: J18.9 Pneumonia, unspecified organism (principal)

== ENCOUNTER 2018-03-06 10:38 | Observation (INO) | payer MEDICAID ==
--- NOTE | 2018-03-06 10:48 | ED PDOC ---
Arrival/HPI - General Chief Complaint: Chest Pain Time Seen by Provider: 03/06/18 10:43 Historian: Patient - History of Present Illness Narrative History of Present Illness (Text): 03/06/18 10:56 53 year old male, whose past medical history includes cardiocatheter, who presents to emergency department complaining of left sided chest pain radiating to the left arm x 4hrs. Patient states he feels like somebody hit him with a baseball bat". Patient denies any fever, chills, shortness of breath, nausea, vomiting, diarrhea, urinary symptoms, back pain, neck pain, headache, dizziness, or any other complaints. Time/Duration: 4-6 hours Symptom Onset: Gradual Symptom Course: Unchanged Activities at Onset: Light Context: Home Past Medical History - Provider Review Nursing Documentation Reviewed: Yes - Infectious Disease Hx of Infectious Diseases: None - Tetanus Immunization Tetanus Immunization: Unknown - Cardiac Hx Hypertension: Yes - Pulmonary Hx Chronic Obstructive Pulmonary Disease (COPD): Yes - Neurological Hx Seizures: No - HEENT Hx HEENT Disorder: No - Renal Hx Renal Disorder: No - Endocrine/Metabolic Hx Endocrine Disorders: No - Hematological/Oncological Hx Blood Disorders: No - Integumentary Hx Dermatological Disorder: No - Musculoskeletal/Rheumatological Hx Musculoskeletal Disorders: No - Gastrointestinal Hx Gastrointestinal Disorders: No - Genitourinary/Gynecological Hx Sexually Transmitted Diseases: No - Psychiatric Hx Anxiety: Yes Hx Bipolar Disorder: Yes Hx Depression: Yes Hx Post Traumatic Stress Disorder: Yes Hx Schizophrenia: Yes Hx Substance Use: Yes - Anesthesia Hx Anesthesia: No Hx Anesthesia Reactions: No Hx Malignant Hyperthermia: No Family/Social History - Physician Review Nursing Documentation Reviewed: Yes Family/Social History: Unknown Family HX Smoking Status: Current Some Days Smoker Hx Alcohol Use: Yes Hx Substance Use: Yes Substance used: cocaine and marijuana together once a month. Allergies/Home Meds Allergies/Adverse Reactions: Allergies shrimp Allergy (Mild, Verified 03/06/18 10:44) SWELLING shellfish derived Allergy (Verified 03/06/18 10:44) SWELLING Review of Systems - Physician Review All systems were reviewed & negative as marked: Yes - Review of Systems Constitutional: Normal Eyes: Normal ENT: Normal Respiratory: Normal. absent: SOB, Cough Cardiovascular: Chest Pain (left side radiating ot left arm) Gastrointestinal: Normal. absent: Abdominal Pain, Diarrhea, Nausea, Vomiting Genitourinary Male: Normal. absent: Frequency, Hematuria Musculoskeletal: Normal. absent: Back Pain, Neck Pain Skin: Normal. absent: Rash Neurological: Normal. absent: Headache, Dizziness Endocrine: Normal Hemo/Lymphatic: Normal Psychiatric: Normal Physical Exam Vital Signs Reviewed: Yes Vital Signs Temp Pulse Resp BP Pulse Ox 03/06/18 10:42 97.8 F 89 18 145/111 H 98 Temperature: Afebrile Blood Pressure: Hypertensive Pulse: Regular Respiratory Rate: Normal Appearance: Positive for: Well-Appearing, Non-Toxic, Comfortable Pain Distress: None Mental Status: Positive for: Alert and Oriented X 3 - Systems Exam Head: Present: Atraumatic, Normocephalic Pupils: Present: PERRL Extroacular Muscles: Present: EOMI Conjunctiva: Present: Normal Mouth: Present: Moist Mucous Membranes Neck: Present: Normal Range of Motion Respiratory/Chest: Present: Clear to Auscultation, Good Air Exchange. No: Respiratory Distress, Accessory Muscle Use Cardiovascular: Present: Regular Rate and Rhythm, Normal S1, S2. No: Murmurs Abdomen: No: Tenderness, Distention, Peritoneal Signs Back: Present: Normal Inspection Upper Extremity: Present: Normal Inspection. No: Cyanosis, Edema Lower Extremity: Present: Normal Inspection. No: Edema Neurological: Present: GCS=15, CN II-XII Intact, Speech Normal Skin: Present: Warm, Dry, Normal Color. No: Rashes Psychiatric: Present: Alert, Oriented x 3, Normal Insight, Normal Concentration Medical Decision Making ED Course and Treatment: 03/06/18 10:55 Impression: 53 year old male presents to the Emergency department complaining of left sided cp that radiates to the left arm. Plan: -- EKG -- Cardiac ISO -- LABS -- Chest X-ray -- UA -- Reassess and disposition Progress Notes: EKG reviewed, shows 87bpm. Non-specific ST/T wave changes. No changes from previous. 03/06/18 12:40 ho of cad recent pos stress. due for cath. seen by joanne vásquez accepts. pt with pos stress test, cp, will admit for acs - Scribe Statement The provider has reviewed the documentation as recorded by the Scribe Yolanda Haines All medical record entries made by the Scribe were at my direction and personally dictated by me. I have reviewed the chart and agree that the record accurately reflects my personal performance of the history, physical exam, m edical decision making, and the department course for this patient. I have also personally directed, reviewed, and agree with the discharge instructions and disposition. Disposition/Present on Arrival - Present on Arrival Any Indicators Present on Arrival: No History of DVT/PE: No History of Uncontrolled Diabetes: No Urinary Catheter: No History of Decub. Ulcer: No History Surgical Site Infection Following: None - Disposition Have Diagnosis and Disposition been Completed?: Yes Diagnosis: Chest pain Disposition: HOSPITALIZED Disposition Time: 12:00 Condition: STABLE
[2018-03-06 11:38] LABS: BASO # 0.03 K/mm3 (0.0-2.0); BASO % 0.6 % (0.0-3.0); EOS # 0.1 (0.0-0.7); EOS % 2.5 % (1.5-5.0); GRAN # 3.04 (1.4-6.5); GRAN % 58.3 % (50.0-68.0); HEMOGLOBIN 13.6 g/dL (14.0-18.0); LYMPH # 1.7 (1.2-3.4); MEAN CELL VOLUME 83.1 fl (80.0-105.0); MEAN CORPUSCULAR HGB CONC 33.7 g/dl (31.0-37.0); MEAN PLATELET VOLUME 9.2 fl (7.0-11.0); MONO # 0.3 (0.1-0.6); MONO % 5.6 % (1.0-6.0); RBC 4.85 10^6/uL (3.5-6.1); WHITE BLOOD COUNT 5.2 10^3/uL (4.5-11.0)
[2018-03-06 11:43] LABS: INR 1.06; PARTIAL THROMBOPLASTIN TIME 29.7 Seconds (25.1-36.5); PROTHROMBIN TIME 12.2 SECONDS (9.4-12.5)
[2018-03-06 11:45] LABS: ALB/GLOB RATIO 1.3 (1.1-1.8); ALBUMIN 4.1 g/dL (3.0-4.8); ALT/SGPT 53 U/L (7-56); AST/SGOT 52 U/L (17-59); BLOOD UREA NITROGEN 18 mg/dL (7-21); CALCIUM 9.1 mg/dL (8.4-10.5); GFR NON-AFRICAN AMERICAN > 60
[2018-03-06 11:50] LABS: PH,URINE 7.5 (4.7-8.0); URINE BILIRUBIN NEGATIVE (NEGATIVE); URINE BLOOD NEGATIVE (NEGATIVE); URINE GLUCOSE (UA) NEGATIVE (NEGATIVE); URINE LEUKOCYTE ESTERASE NEGATIVE Leu/uL (NEGATIVE); URINE PROTEIN NEGATIVE mg/dL (<30 mg/dL); URINE UROBILINOGEN 0.2 E.U./dL (<1 E.U./dL)
[2018-03-06 11:51] LABS: URINE APPEARANCE CLEAR (CLEAR); URINE COLOR YELLOW (YELLOW)
[2018-03-06 11:56] LABS: TROPONIN I < 0.01 ng/mL
--- NOTE | 2018-03-06 12:16 | RAD ---
Date of service: 03/06/2018 HISTORY: cp COMPARISON: Chest radiograph dated 11/30/2017. FINDINGS: LUNGS: No active pulmonary disease. PLEURA: No significant pleural effusion identified, no pneumothorax apparent. CARDIOVASCULAR: Aortic atherosclerotic calcifications. Cardiomediastinal silhouette stably enlarged. OSSEOUS STRUCTURES: Unchanged. VISUALIZED UPPER ABDOMEN: Normal. OTHER FINDINGS: None. IMPRESSION: No active disease.
[2018-03-06 12:30] LABS: CK-MB 2.2 ng/mL (0.0-3.6)
[2018-03-06 15:33] VITALS: BMI 26.9
--- NOTE | 2018-03-06 20:17 | CARD ---
APPROVED REPORT Date of service: 03/06/2018 EKG Measurement Heart [id number] <Conclusion> Normal sinus rhythm Possible Left atrial enlargement T wave abnormality, consider inferior ischemia Abnormal ECG
--- NOTE | 2018-03-06 22:41 | HP ---
DATE OF EXAM: 03/06/2018 HISTORY OF PRESENT ILLNESS: I saw him in the emergency room at [facility], [place]. He is a 53-year-old man who presents with a interesting history of sided chest pain radiating to his left arm for 4 hours. He also has a history of feeling like someone hit him with a baseball bat. No chills. No shortness of breath. No nausea, vomiting or diarrhea. No urinary tract symptoms. No back pain. No neck pain. No headache. No dizziness or any complaints. Does have a history of having a positive stress test in the past 6 months, post catheterization, never did it. This is one of an ACS situation, He has hypertension, not taking his medications, COPD. He has anxiety,, bipolar disorder, depression, schizophrenia, substance abuse, traumatic stress disorder, not sure if he is taking his medications or not. He has AMA from the hospital a few times. He still smoke cigarettes, still uses alcohol, still has substance abuse, cocaine and marijuana together once a month. ALLERGIES: TO SHRIMP AND SHELLFISH. REVIEW OF SYSTEMS: No acute vision or hearing changes. No shortness of breath or cough. He has chest pain radiating to the left arm. No nausea, vomiting, constipation or diarrhea. No problems urinating. No back pain or neck pain. No skin rashes that he knows of or ulcers. No headache or dizziness. No anxiety or depression right now. He is kind of calm. PHYSICAL EXAMINATION: VITAL SIGNS: A 97.8 temp, 89 pulse, 18 respiratory rate, 145/111 blood pressure, I will put him back on his blood pressure medications, 98 pulse. HEENT: Head is atraumatic and normocephalic. Extraocular muscles intact. Pupils are reactive to light. Throat is moist. NECK: Supple. HEART: Regular rate. Normal S1 and S2. LUNGS: Decreased breath sounds bilaterally, but clear to auscultation. No wheezing. No rhonchi. No rales. ABDOMEN: Soft and nontender. Positive bowel sounds. No guarding, no rebound, no CVA tenderness. EXTREMITIES: No edema. He could move all four extremities. NEUROLOGIC: GCS is 15. Cranial nerves II through XII grossly intact. Normal speech. Alert and oriented x3. SKIN: Warm and dry. No apparent rash or ulcers appreciable. LYMPHS: Thyroid midline. No palpable appreciable lymphadenopathy. Multiple tests are pending. No labs back. His EKG and chest x-ray are pending. I will put him in the hospital for positive stress test, chest pain. Consult Cardiology. hypertension, I am putting him back on his regular medications. He has ACS with positive stress test. Narinder Camacho DO MTDD
[2018-03-07 05:23] VITALS: O2SAT 96
[2018-03-07 07:11] LABS: HEMOGLOBIN 14.6 g/dL (14.0-18.0); MEAN CELL VOLUME 82.5 fl (80.0-105.0); MEAN PLATELET VOLUME 9.6 fl (7.0-11.0); RBC 5.21 10^6/uL (3.5-6.1); RED CELL DISTRIBUTION WIDTH 15.7 % (11.5-14.5); WHITE BLOOD COUNT 4.4 10^3/uL (4.5-11.0)
[2018-03-07 07:31] LABS: ALB/GLOB RATIO 1.2 (1.1-1.8); ALBUMIN 3.7 g/dL (3.0-4.8); ALT/SGPT 46 U/L (7-56); AST/SGOT 32 U/L (17-59); BLOOD UREA NITROGEN 18 mg/dL (7-21); CALCIUM 9.1 mg/dL (8.4-10.5); GFR NON-AFRICAN AMERICAN > 60
--- NOTE | 2018-03-07 09:33 | PN ---
DATE: 03/07/2018 SUBJECTIVE: He came in with a history of a positive stress test, never went for his catheterization. He came in with chest pain and hypertension, I have put him back on his Norvasc with Remeron, Seroquel and Tylenol. He is still having some chest pain this morning, not as bad as when he came in. PHYSICAL EXAMINATION: VITAL SIGNS: A 97.8 temperature, 69 pulse, blood pressure is better at 118/82 with a 20 respiratory rate and 96% O2 sat. GENERAL: He is eating, he his comfortable, trying to sleep last night. HEENT: Head is atraumatic and normocephalic. HEART: Regular rate. LUNGS: With decreased breath sounds, but clear. ABDOMEN: Soft. EXTREMITIES: No edema. LABORATORY DATA: He has a 4.4 white count, 14.6 hemoglobin, 43 hematocrit with 225 platelets. INR is 1.06. He has 136 sodium, potassium 4.2, BUN 80, creatinine is 1, GFR is greater than 60, sugar is 101, calcium is 9.1, total bili is 0.7, AST is 32, ALT is 46 and alk phos 75. His troponin was less than 0.01, x2. His total protein 6.9. Urine was clean. I am waiting for Cardiology to see him this morning, it could be T-wave abnormality, consider ischemia and the EKG. Chest x-ray no active disease. I am thinking he might need a coronary catheterization with the dimmer board operator also coming today we will get that arranged. I am glad the troponins are negative. We will continue with current treatment and care. Wait for Cardiology. Narinder Camacho DO
[2018-03-07] MEDS ORDERED: Lidocaine 2% Inj (20ml) ONE (10:00)
[2018-03-07] MEDS ORDERED: Phenylephrine 10 mg/ml Inj ONE (10:00)
[2018-03-07] MEDS ORDERED: Iohexol 350mgl/ml 50 ML ONE (10:01)
[2018-03-07] MEDS ORDERED: Iodixanol 320 MG/ML 200 ML BOTTLE IV ONE (10:01)
[2018-03-07] MEDS ORDERED: Nitroglycerin 50mg in D5W 0 MG/0 ML BOTTLE IV ONE (10:01)
[2018-03-07] MEDS ORDERED: Iodixanol 320 MG/ML 100 ML BOTTLE IV ONE (10:01)
[2018-03-07] MEDS ORDERED: Heparin 2,000 ML IV ONE (10:01)
[2018-03-07] MEDS ORDERED: Famotidine 20mg/50ml 20 MG/50 ML BAG IVPB ONE (10:03)
[2018-03-07] MEDS ORDERED: DiphenhydrAMINE 50 mg/ml Inj ONE (10:04)
[2018-03-07] MEDS ORDERED: Midazolam 2 MG/2 ML VIAL ONE ×2 (10:32→10:44)
[2018-03-07] MEDS ORDERED: Flumazenil 0.1 mg/ml Inj (5ml) IVP ONE (11:11)
[2018-03-07] MEDS ORDERED: Naloxone 0.4 mg/ml Inj (Adult) ONE (11:15)
[2018-03-07] MEDS ORDERED: Sodium Chloride 0.9% 1,000 ML IV SCH (11:30)
--- NOTE | 2018-03-07 12:59 | CARDCATH ---
PROCEDURE DATE: 03/07/2018 HISTORY: The patient is a 53-year-old male who presents with substernal chest pressure with radiation to the left arm. The patient was told of a "enlarged heart" in the past. He does admit to a strong family history of CAD with the mother and father both with coronary artery disease issues. In addition, he suffers from hypertension. SOCIAL HISTORY: The patient is an occasional smoker. REVIEW OF SYSTEMS: A 14-point review of systems is reviewed in detail. ALLERGIES: THE PATIENT HAS AN ALLERGY TO SEA FOOD, but no other cardiac symptoms. PHYSICAL EXAMINATION: VITAL SIGNS: Blood pressure varies from 118-145 systolic, heart rates in the 60s. Because of this, cardiac catheterization was recommended. PROCEDURE: Left heart catheterization with coronary aortography and left ventriculogram. The right femoral artery was cannulated with 6-Turkish sheath. There were no complications. I performed moderate sedation which included the presence of an independent trained observer that assisted in monitoring the patient's level of consciousness and physiologic status. After administration of Versed and fentanyl, my intra service time was 15 minutes. The findings on catheterization revealed a left ventricle that contracted normally. Estimated ejection fraction of 60%. The patient had a right dominant circulation. The RCA is within normal limits. The left main artery, LAD, diagonal vessels and circumflex systems were unremarkable. Angio-Seal was used to close the femoral artery site. The patient tolerated the procedure well. In summary, the procedure revealed normal coronary arteries, normal LV function. Given these findings, the patient's treatment needs to be a cardiac risk reduction program and treatment of his hypertension. His enlarged heart that he was led to believe is likely due to mild LVH from his hypertension. I have discussed this with the patient in detail. The patient can be discharged today. Precautions for activity and risk for bleeding of the right groin have been reviewed with the patient. He has been instructed to see Dr. Camacho next week for followup. Anton Ku MD
[2018-03-07 13:58] VITALS: TEMP 97.5
[2018-03-07 14:49] VITALS: RESP 18
[2018-03-07 16:36] VITALS: BP 144/85; PULSE 83
== END 2018-03-07 17:15 | disposition home or self-care (01) ==
LOC: ED 10:38 → INTOOBSV 12:05 → ERH 12:05 → 2RNO 15:09 → 2RSO 03-07 11:37
PROVIDERS: ADMIT Family Medicine; ATTEND Family Medicine
DX: I11.9 Hypertensive heart disease without heart failure (principal); J44.9 Chronic obstructive pulmonary disease, unspecified; F17.210 Nicotine dependence, cigarettes, uncomplicated; F14.10 Cocaine abuse, uncomplicated; F12.10 Cannabis abuse, uncomplicated; F31.9 Bipolar disorder, unspecified; F20.9 Schizophrenia, unspecified; Z82.49 Family history of ischemic heart disease and other diseases of the circulatory system
CPT/HCPCS: 36415; 71045; 80053; 81003; 82550; 82553; 83615; 83735; 84484; 85025; 85027; 85610; 85730; 93005; 93458; 99152; 99283; C1760; C1769; C2629; G0378; J1200; J1644; J2250; J2310; J2930; J3010; J7030; Q9966; Q9967

== ENCOUNTER 2018-04-05 22:15 | Inpatient (IN) | payer OTHER, MEDICAID ==
[2018-04-05 22:35] VITALS: BMI 31.1
--- NOTE | 2018-04-05 23:02 | ED PDOC ---
Arrival/HPI - General Chief Complaint: Psychiatric Evaluation Time Seen by Provider: 04/05/18 22:32 Historian: Patient - History of Present Illness Narrative History of Present Illness (Text): 04/05/18 22:58 53 year old male, whose past medical history includes depression and cardiac catheterization, presents to the emergency department with suicidal ideation. Patient states he has been depressed because his son was killed a week ago, and wants to kill himself. Patient states he has no plan. Patient denies any homicidal ideation. Patient informs he has been drinking today, with his last drink at 15:00. Patient denies any fevers, chills, headache, dizziness, chest pain, shortness of breath, cough, abdominal pain, nausea, vomiting, diarrhea, back pain, neck pain, or any other complaint. Time/Duration: Prior to Arrival Symptom Onset: Gradual Symptom Course: Unchanged Activities at Onset: Light, Emotional Upset Past Medical History - Provider Review Nursing Documentation Reviewed: Yes - Infectious Disease Hx of Infectious Diseases: None - Tetanus Immunization Tetanus Immunization: Unknown - Cardiac Hx Hypertension: Yes - Pulmonary Hx Chronic Obstructive Pulmonary Disease (COPD): Yes - Neurological Hx Seizures: No - HEENT Hx HEENT Disorder: No - Renal Hx Renal Disorder: No - Endocrine/Metabolic Hx Endocrine Disorders: No - Hematological/Oncological Hx Blood Disorders: No - Integumentary Hx Dermatological Disorder: No - Musculoskeletal/Rheumatological Hx Falls: No - Gastrointestinal Hx Gastrointestinal Disorders: No - Genitourinary/Gynecological Hx Sexually Transmitted Diseases: No - Psychiatric Hx Anxiety: Yes Hx Bipolar Disorder: Yes Hx Depression: Yes Hx Post Traumatic Stress Disorder: Yes Hx Schizophrenia: Yes Hx Substance Use: No - Surgical History Hx Cardiac Catheterization: Yes (1 month ago) Other/Comment: cardiac cath. - Anesthesia Hx Anesthesia: No Hx Anesthesia Reactions: No Hx Malignant Hyperthermia: No Family/Social History - Physician Review Nursing Documentation Reviewed: Yes Family/Social History: No Known Family HX Smoking Status: Current Some Days Smoker Hx Alcohol Use: Yes (social) Frequency of alcohol use: Few days per week Hx Substance Use: No Substance used: cocaine and marijuana together once a month. Allergies/Home Meds Allergies/Adverse Reactions: Allergies shrimp Allergy (Mild, Verified 04/06/18 18:30) SWELLING shellfish derived Allergy (Verified 04/06/18 18:30) SWELLING Home Medications: Home Meds Medication Instructions Recorded Confirmed No Known Home Med 03/06/18 04/06/18 Review of Systems - Physician Review All systems were reviewed & negative as marked: Yes - Review of Systems Constitutional: absent: Fevers, Night Sweats Respiratory: absent: SOB, Cough Cardiovascular: absent: Chest Pain Gastrointestinal: absent: Abdominal Pain, Diarrhea, Nausea, Vomiting Musculoskeletal: absent: Back Pain, Neck Pain Neurological: absent: Headache, Dizziness Psychiatric: Suicidal Ideation Physical Exam - Systems Exam Head: Present: Atraumatic, Normocephalic Pupils: Present: PERRL Extroacular Muscles: Present: EOMI Conjunctiva: Present: Normal Mouth: Present: Moist Mucous Membranes Neck: Present: Normal Range of Motion Respiratory/Chest: Present: Clear to Auscultation, Good Air Exchange. No: Re spiratory Distress, Accessory Muscle Use Cardiovascular: Present: Regular Rate and Rhythm, Normal S1, S2. No: Murmurs Abdomen: No: Tenderness, Distention, Peritoneal Signs Back: Present: Normal Inspection Upper Extremity: Present: Normal Inspection. No: Cyanosis, Edema Lower Extremity: Present: Normal Inspection. No: Edema Neurological: Present: GCS=15, CN II-XII Intact, Speech Normal Skin: Present: Warm, Dry, Normal Color. No: Rashes Psychiatric: Present: Alert, Oriented x 3, Normal Insight, Normal Concentration, Suicidal Ideation. No: Homicidal Ideation Medical Decision Making ED Course and Treatment: 04/05/18 23:06 Impression: 53 year old male presents with suicidal ideation Plan: -- EKG -- CBC -- CMP, chemistry -- Chest X-ray -- 1 to 1 observation -- Urinalysis -- Reassess and disposition Prior Visits: Notes and results from previous visits were reviewed. Progress Notes: 04/06/18 02:16 CT SCAN OF THE CHEST WITHOUT IV CONTRAST CLINICAL INDICATION: Mass, right side. TECHNIQUE: Axial and reformatted sagittal and coronal images of the chest obtained without IV contrast administration. FINDINGS: Normal unenhanced main pulmonary artery and right and left pulmonary arteries. Normal bilateral peripheral pulmonary arteries. Normal thoracic aorta and visualized great vessels. Mild multifocal hypoventilatory pulmonary changes. There is no demonstrated aortic aneurysm. Moderately enlarged heart and normal pericardium. Normal mediastinum. Normal hilar regions. Normal visualized trachea and bronchi. The lungs are well expanded. Normal pulmonary parenchyma. Normal pleura. Normal chest wall structures. 1.5 cm benign exostosis is arising from the medial aspect of the posterior arch of the right fourth rib. Normal osseous structures. Normal visualized upper abdomen. IMPRESSION: Moderate cardiomegaly. Benign exostosis of the right fourth rib. Mild multifocal hypoventilatory pulmonary changes. No mass lesion is noted. pt evaluated by pes will be admitted to [facility] depression - RAD Interpretation Radiology Orders: 04/05/18 22:43 CHEST PORTABLE [RAD] Stat - EKG Interpretation EKG Interpretation (Text): 04/05/18 23:23 Normal sinus rhythm rate 83 Possible Left atrial enlargement T wave abnormality, no changes from previous - Scribe Statement The provider has reviewed the documentation as recorded by the Scribe Anton Braun Provider Scribe Attestation: All medical record entries made by the Scribe were at my direction and personally dictated by me. I have reviewed the chart and agree that the record accurately reflects my personal performance of the history, physical exam, medical decision making, and the department course for this patient. I have also personally directed, reviewed, and agree with the discharge instructions and disposition. Disposition/Present on Arrival - Present on Arrival Any Indicators Present on Arrival: No History of DVT/PE: No History of Uncontrolled Diabetes: No Urinary Catheter: No History of Decub. Ulcer: No History Surgical Site Infection Following: None - Disposition Have Diagnosis and Disposition been Completed?: Yes Diagnosis: Depression Disposition: HOSPITALIZED Disposition Time: 05:00 Condition: GOOD
[2018-04-05 23:43] LABS: BASO # 0.03 K/mm3 (0.0-2.0); BASO % 0.5 % (0.0-3.0); EOS # 0.2 (0.0-0.7); EOS % 2.9 % (1.5-5.0); HEMOGLOBIN 12.9 g/dL (14.0-18.0); LYMPH # 2.5 (1.2-3.4); LYMPH % 37.8 % (22.0-35.0); MEAN CELL VOLUME 82.2 fl (80.0-105.0); MEAN PLATELET VOLUME 9.1 fl (7.0-11.0); MONO # 0.3 (0.1-0.6); MONO % 4.9 % (1.0-6.0); RBC 4.61 10^6/uL (3.5-6.1); RED CELL DISTRIBUTION WIDTH 15.3 % (11.5-14.5); WHITE BLOOD COUNT 6.5 10^3/uL (4.5-11.0)
[2018-04-06 00:04] LABS: ACETAMINOPHEN < 10.0 ug/ml (10.0-20.0); SALICYLATE < 1 mg/dL (2.0-20.0)
[2018-04-06 00:57] LABS: ALB/GLOB RATIO 1.3 (1.1-1.8); ALBUMIN 4.1 g/dL (3.0-4.8); ALT/SGPT 32 U/L (7-56); AST/SGOT 27 U/L (17-59); BLOOD UREA NITROGEN 15 mg/dL (7-21); GFR NON-AFRICAN AMERICAN > 60
[2018-04-06 01:02] LABS: CK-MB 1.6 ng/mL (0.0-3.6)
[2018-04-06 03:38] LABS: URINE BILIRUBIN NEGATIVE (NEGATIVE); URINE BLOOD NEGATIVE (NEGATIVE); URINE GLUCOSE (UA) NEGATIVE (NEGATIVE); URINE LEUKOCYTE ESTERASE NEGATIVE Leu/uL (NEGATIVE); URINE PROTEIN NEGATIVE mg/dL (<30 mg/dL); URINE UROBILINOGEN 0.2 E.U./dL (<1 E.U./dL)
[2018-04-06 03:53] LABS: BARBITURATES, UR NEGATIVE (NEGATIVE); URINE APPEARANCE CLEAR (CLEAR); URINE COLOR YELLOW (YELLOW)
[2018-04-06 04:00] LABS: BENZODIAZEPINES, UR POSITIVE (NEGATIVE); OPIATES, UR NEGATIVE (NEGATIVE); PHENCYCLIDINE, UR NEGATIVE (NEGATIVE)
--- NOTE | 2018-04-06 08:13 | CT ---
Date of service: 04/06/2018 PROCEDURE: CT Chest without contrast HISTORY: mass rt side COMPARISON: Chest radiograph 04/05/2017. TECHNIQUE: Contiguous axial images were obtained through the chest without intravenous contrast enhancement. Sagittal and coronal reconstructions were performed. Radiation dose: Total exam DLP = 697.74 mGy-cm. This CT exam was performed using one or more of the following dose reduction techniques: Automated exposure control, adjustment of the mA and/or kV according to patient size, and/or use of iterative reconstruction technique. FINDINGS: LUNGS: No dominant mass identified bilaterally although a 3 mm ovoid density (image 62 series 3) seen at the lingula likely sub pleural as it abuts the inferior margins of the left major fissure, noncalcified. Central airways are clear. No right sided pulmonary nodule identified. No infiltrates bilaterally though occasional scattered ground-glass changes are seen bilaterally instead. MEDIASTINUM: Unremarkable thoracic aorta. No aneurysm. Cardiomegaly is identified. Main pulmonary artery measures 3.5 cm. Consider potential pulmonary artery hypertension. No vascular congestion. No lymphadenopathy. No aortic atherosclerotic calcification. PLEURA: No pleural fluid. No pneumothorax. BONES: No acute fractures identified however there is a bridging bony deformity at the medial anterior margins of the right 4th and 5th ribs potentially reflecting an exostosis or posttraumatic deformity. UPPER ABDOMEN: One hundred two lucencies are appreciate in liver which are poorly characterized due to very small size under 1 cm and lack of intravenous contrast. A small cyst is exophytic off the midpole left kidney laterally. OTHER FINDINGS: None. IMPRESSION: 1. No right-sided pulmonary mass identified. A tiny nodule is seen at the lingula subpleural in location as discussed above. Clinically correlate as to the patient's risk factors for developing lung cancer. Follow-up CT may be considered in 12 months if clinically warranted. 2. No consolidation bilaterally. Limited scattered ground-glass opacity bilaterally. 3. No significant lymphadenopathy. 4. Prominent main pulmonary artery measuring up to 3.5 cm. Consider possible pulmonary artery hypertension. Cardiomegaly. No pulmonary vascular congestion grossly evident. 5. Small exostosis or bony deformity bridges the anteromedial right 4th and 5th ribs. Preliminary report provided by Javi, 04/06/2018 1:40 a.m.. Discordant as per impression 1. PA review assigned.
[2018-04-06 09:12] VITALS: O2SAT 98
[2018-04-06] MEDS ORDERED: Alum-Mag Hydrox-Simethicone Susp (30 mL) PO PRN (11:31)
[2018-04-06] MEDS ORDERED: Magnesium Hydroxide Susp 30 ml UD PO PRN (11:31)
--- NOTE | 2018-04-06 12:25 | CARD ---
APPROVED REPORT Date of service: 04/05/2018 EKG Measurement Heart [id number] MS [id number] <Conclusion> Normal sinus rhythm Possible Left atrial enlargement T wave abnormality, consider inferolateral ischemia LVH.
--- NOTE | 2018-04-06 14:45 | RAD ---
Date of service: 04/05/2018 HISTORY: pes COMPARISON: 03/06/2018 FINDINGS: LUNGS: No active pulmonary disease. PLEURA: No significant pleural effusion identified, no pneumothorax apparent. CARDIOVASCULAR: No atherosclerotic calcification present No radiographic findings to suggest acute or significant cardiovascular disease. OSSEOUS STRUCTURES: No significant abnormalities. VISUALIZED UPPER ABDOMEN: Normal. OTHER FINDINGS: None. IMPRESSION: No active disease. No significant interval change compared to the prior examination(s).
--- NOTE | 2018-04-06 16:31 | ED PDOC ---
ED Additional Note - Physician Additional Note Physician Additional Note: Ct of chest placed into PA review folder. CT chest: FINDINGS: LUNGS: No dominant mass identified bilaterally although a 3 mm ovoid density (image 62 series 3) seen at the lingula likely sub pleural as it abuts the inferior margins of the left major fissure, noncalcified. Central airways are clear. No right sided pulmonary nodule identified. No infiltrates bilaterally though occasional scattered ground-glass changes are seen bilaterally instead. MEDIASTINUM: Unremarkable thoracic aorta. No aneurysm. Cardiomegaly is identified. Main pulmonary artery measures 3.5 cm. Consider potential pulmonary artery hypertension. No vascular congestion. No lymphadenopathy. No aortic atherosclerotic calcification. PLEURA: No pleural fluid. No pneumothorax. BONES: No acute fractures identified however there is a bridging bony deformity at the medial anterior margins of the right 4th and 5th ribs potentially reflecting an exostosis or posttraumatic deformity. UPPER ABDOMEN: One hundred two lucencies are appreciate in liver which are poorly characterized due to very small size under 1 cm and lack of intravenous contrast. A small cyst is exophytic off the midpole left kidney laterally. OTHER FINDINGS: None. IMPRESSION: 1. No right-sided pulmonary mass identified. A tiny nodule is seen at the lingula subpleural in location as discussed above. Clinically correlate as to the patient's risk factors for developing lung cancer. Follow-up CT may be considered in 12 months if clinically warranted. 2. No consolidation bilaterally. Limited scattered ground-glass opacity bilaterally. 3. No significant lymphadenopathy. 4. Prominent main pulmonary artery measuring up to 3.5 cm. Consider possible pulmonary artery hypertension. Cardiomegaly. No pulmonary vascular congestion grossly evident. 5. Small exostosis or bony deformity bridges the anteromedial right 4th and 5th ribs. Preliminary report provided by Javi, 04/06/2018 1:40 a.m.. Discordant as per impression 1. PA review assigned. Patient was admitted to the hospital. I spoke with dr. Arriola the psychiatrist and discussed the CT findings of a nodule warranting follow-up CAT scan. She is aware and will discuss results with the patient.
--- NOTE | 2018-04-06 17:52 | PCM.BM ---
<Constanza Antunez - Last Filed: 04/06/18 17:49> Treatment Plan Problems - Problems identified on initial assessmt HOPELESSNESS/HELPLESSNESS Date Initiated: 04/06/18 Time Initiated: 17:00 Assessment reference: NA Status: Active Priority: 1 INEFFECTIVE COPING Date Initiated: 04/06/18 Time Initiated: 17:00 Assessment reference: NA Status: Active Priority: 2 SOCIAL ISOLATION Date Initiated: 04/06/18 Time Initiated: 17:00 Assessment reference: NA Status: Active Priority: 3 ALTERED SLEEP PATTERN Date Initiated: 04/06/18 Time Initiated: 17:00 Assessment reference: NA Status: Active Priority: 4 Treatment assets and liabiliti Patient Assests: adapts well, cooperative, motivated, self-reliant, ADL independent, physically healthy, negotiates basic needs, cognitively intact, good interpersonal skills Patient Liabilities: financial problems, relationship conflicts, substance abuse - Milieu Protocol Maintain good personal hygiene: every other day Encourage regular showers, every shift Remind patient to perform daily oral care, every shift Assist patient to perform ADL's Maintain personal safety: every shift Educate patient to report safety concerns to staff, every shift Monitor environment for contraband/sharps Medication safety: Monitor for expected outcome, potential side effects: every shift, Assess barriers to learning: every shift, Assess readiness for medication education: every shift Family Contact Family contact: Patient agrees to contact Discharge/Continuing Care - Education Needs Education Needs: Patient Medication, Patient Diagnosis/Disease Process, Patient Coping Skills, Patient Activities of Daily Living, Patient Health Practices/Safety - Discharge Discharge Criteria: Tolerates medication w/o severe side effects, Free of Suicidal thoughts, Free of Homicidal thoughts <Obie Arriola - Last Filed: 04/07/18 11:32> - Diagnosis (1) Grief Status: Acute Interventions: 04/07/18 11:32 * group, milieu and supportive tx * Seroquel 50 mg po AM and 100 mg HS for mood control * Remeron 15 mg po HS for depression * Ativan 1 mg po q6 for alcohol withdrawal/anxiety, taper as tolerated * Consider naltrexone to help with abstinence however patient has been resistant ot address his substance abuse in the past. * Haldol + Ativan prns for agitation (2) Drug abuse Status: Acute Interventions: 04/07/18 11:32 * group, milieu and supportive tx * Seroquel 50 mg po AM and 100 mg HS for mood control * Remeron 15 mg po HS for depression * Ativan 1 mg po q6 for alcohol withdrawal/anxiety, taper as tolerated * Consider naltrexone to help with abstinence however patient has been resistant ot address his substance abuse in the past. * Haldol + Ativan prns for agitation (3) Drug dependence Status: Acute Interventions: 04/07/18 11:32 * group, milieu and supportive tx * Seroquel 50 mg po AM and 100 mg HS for mood control * Remeron 15 mg po HS for depression * Ativan 1 mg po q6 for alcohol withdrawal/anxiety, taper as tolerated * Consider naltrexone to help with abstinence however patient has been resistant ot address his substance abuse in the past. * Haldol + Ativan prns for agitation (4) Bipolar 1 disorder Status: Chronic <Monique Beatty - Last Filed: 04/08/18 16:01> Family Contact Family involvement: Famliy/SO not involved
--- NOTE | 2018-04-07 00:02 | CON ---
DATE: 04/06/2018 HISTORY OF PRESENT ILLNESS: The patient is a 53-year-old male with a history of bipolar disorder as well as polysubstance abuse including alcohol, benzodiazepine, cocaine, and cannabis, who presented to the ER complaining of depression, suicidal thoughts related to his 16-year-old son, David, he was killed a week ago by being shot . The patient was he has been drinking to deal with his grief and reported that he felt unsafe to be discharge. I met with the patient at bedside and he is alert and oriented to month, year, location, and circumstances. 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 It is unclear whether the patient has been compliant with medications that he cannot recall his current medication list, but does recall the Seroquel has been beneficial for him in the past. The patient reported that his felt that son was shot five to six times last week, felt extremely guilty especially is blaming him for his son's is unclear why. Son was only 16-year-old and the patient only has one child. The patient feels overwhelmed, depressed, and has poor sleep. Has been using multiple illicit substances to escape his grief and feels unsafe and out of control at this time. Of note, the patient denies any hallucinations. He has been in fair control in the ER while awaiting evaluation. Vital signs and labs were reviewed. PSYCHIATRIC HISTORY: The patient has a history of multiple psychiatric admissions at [facility] and other hospitals. Most recently, he was at [facility] in 02/2018 and was discharged on Remeron 15 mg at bedtime and Seroquel 100 mg a.m. and at bedtime, diagnosed with bipolar and drug use. MEDICATIONS: The patient has a history of noncompliance with medications. Currently unsure if Remeron was ever beneficial for him. He does recall that Ativan and Seroquel were beneficial. SOCIAL HISTORY: The patient resides with his girlfriend. The patient has part-time job in [employer]. He has a history of drug dependency, on multiple admissions. Prior UDS was positive for cocaine and cannabis. Most recently, on 04/06/2018, UDS is positive for benzodiazipines, cocaine, and cannabis. BAL was 85. IMPRESSION: 1. Bipolar disorder by history. 2. Polysubstance abuse versus dependency likely substance-induced mood disorder. 3. Grief reaction. RECOMMENDATIONS: The patient is recommended for involuntary admission, currently awaiting bed. We will start Seroquel as well as Ativan to help with anxiety. Hold on Remeron and initiate Paxil to help with depression and anxiety. Ativan will also be beneficial for possible alcohol withdrawal symptoms. The patient has been minimizing his alcohol use. Obie Arriola MD
[2018-04-07 07:55] LABS: BASO # 0.04 K/mm3 (0.0-2.0); BASO % 0.9 % (0.0-3.0); EOS # 0.2 (0.0-0.7); EOS % 3.3 % (1.5-5.0); HEMOGLOBIN 12.6 g/dL (14.0-18.0); LYMPH # 1.6 (1.2-3.4); LYMPH % 35.9 % (22.0-35.0); MEAN CELL VOLUME 82.7 fl (80.0-105.0); MEAN CORPUSCULAR HEMOGLOBIN 27.9 pg (25.0-35.0); MEAN CORPUSCULAR HGB CONC 33.8 g/dl (31.0-37.0); MEAN PLATELET VOLUME 9.1 fl (7.0-11.0); MONO # 0.3 (0.1-0.6); MONO % 6.4 % (1.0-6.0); RBC 4.51 10^6/uL (3.5-6.1); RED CELL DISTRIBUTION WIDTH 15.3 % (11.5-14.5); WHITE BLOOD COUNT 4.5 10^3/uL (4.5-11.0)
[2018-04-07 08:03] LABS: GLUCOSE,FASTING 108 mg/dL (65-110); HDL CHOLESTEROL 52 mg/dL (29-60)
[2018-04-07 08:14] LABS: LDL CHOLESTEROL 103 mg/dL (0-129)
--- NOTE | 2018-04-07 11:31 | PCM.PSYCH ---
Initial Psychiatric Evaluation - Initial Psychiatric Evaluation Type of Admission: Voluntary Legal Status: Capacity History of Present Illness and Precipitating Events: Patient is a 53 year old single AA male with a history of Bipolar Disorder, alcohol, cocaine, heroin and cannabis use disorder, multiple admissions and detoxes-most recently psychiatrically admitted to [facility] from 11/14/17-11/23/17, reportedly in outpatient psychiatric treatment in [place] and compliant with remeron and seroquel who presented to the [facility] emergency department complaining of depression and suicidal ideation because his 26 yo son, David was shot to in [place] on 03/30/18. UDS was positive for benzos, cocaine and cannabis. BAL = 85. Of note: Patient has history of disrespectful, agitated behavior and administrative discharge in the past, h/o malingering and manipulative behavior. I met with patient in the ER and at bedside this morning. He is oriented to location, month, year and circumstances. He reports feeling depressed and hopeless since his son was killed last week. He is upset that his family is blaming him for this son's . This is patient's main stressor as he reports that he was doing fairly well prior to this incident. 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 It is unclear if patient was also abstaining from drugs and alcohol during this time, though it is unlikely. Patient appears tired, mildly irritable and withdrawn. Patient denies hallucinations at this time. Thought process is clear and coherent. He demonstrates no signs of psychosis. Denies any pain or discomfort. Thus far he is tenuously in control on the unit. SOCIAL HISTORY Patient was born and raised in [place]. His single and resides with his girl friend. In the past, patient has denied having any children. Historically has been reluctant to discuss his substance-abuse history but has admitted to drinking vodka and using MJA, heroin as well as cocaine. He reports smoking two cigarettes daily. PSYCHIATRIC HISTORY ~Most recent admission at [facility] occurred 11/14/17-11/23/17. Patient was discharged on: remeron 15 mg po HS and seroquel 200 mg po [facility] ~Patient reported having one suicide attempt approximately 2015 leading to a hospitalization. ~Patient reports that he is in outpatient psychiatric care in [place]. Patient reports he is being prescribed seroquel and remeron. He cannot recall the name of his psychiatrist. ~Patient was detoxed at [facility] from 11/10/16-11/12/16. [facility] discharge note indicated " Last night and this morning, pt. became emotionally labile, highly threatening, and intimidating and humiliating to the nurses and other patients. He had to be discharged immediately due to his hostile behavior". Current Medications: Active Medications Generic Name Dose Route Start Last Admin Trade Name Freq PRN Reason Stop Dose Admin Acetaminophen 650 mg 04/06/18 11:31 Tylenol 325mg Tab PO Q6H PRN Fever >100.4 F Al Hydrox/Mg Hydrox/Simethicone 30 ml 04/06/18 11:31 Maalox Plus 30 Ml PO DAILY PRN Indigestion / Heartburn Diphenhydramine HCl 50 mg 04/06/18 11:41 Benadryl PO Q8 PRN Muscle spasm Haloperidol 5 mg 04/06/18 11:40 Haldol PO Q8 PRN Agitation Protocol Lorazepam 1 mg 04/06/18 14:07 Ativan PO Q6 PRN Anxiety Protocol Lorazepam 1 mg 04/06/18 18:00 04/07/18 05:52 Ativan PO 1 mg Q6 [facility] Administration Protocol Magnesium Hydroxide 30 ml 04/06/18 11:31 Milk Of Magnesia PO DAILY PRN Constipation Paroxetine HCl 10 mg 04/06/18 22:00 04/06/18 21:51 Paxil PO 10 mg HS [facility] Administration Quetiapine Fumarate 50 mg 04/06/18 22:00 04/06/18 21:51 Seroquel PO 50 mg HS [facility] Administration Protocol Quetiapine Fumarate 25 mg 04/06/18 14:15 04/06/18 14:34 Seroquel PO 25 mg DAILY [facility] Administration Protocol Present on Admission - Present on Admission Any Indicators Present on Admission: No - Notes: Notes:: Please refer to ER report dated 04/05/18 for physical exam and ROS findings. Review of Systems - Review of Systems Review of Systems: Please refer to ER report dated 04/05/18 for physical exam and ROS findings. - Constitutional Constitutional: As Per HPI - EENT Eyes: As Per HPI Ears: As Per HPI Nose/Mouth/Throat: As Per HPI - Cardiovascular Cardiovascular: As Per HPI - Respiratory Respiratory: As Per HPI - Gastrointestinal Gastrointestinal: As Per HPI - Genitourinary Genitourinary: As Per HPI - Reproductive: Male Reproductive:Male: As Per HPI - Musculoskeletal Musculoskeletal: As Per HPI - Integumentary Integumentary: As Per HPI - Neurological Neurological: As Per HPI - Psychiatric Psychiatric: As Per HPI - Endocrine Endocrine: As Per HPI - Hematologic/Lymphatic Hematologic: As Per HPI Past Patient History - Past Psychiatric History Prior Professional Help: See HPI - PSYCHIATRIC Hx Anxiety: Yes Hx Bipolar Disorder: Yes Hx Depression: Yes Hx Post Traumatic Stress Disorder: Yes Hx Schizophrenia: Yes Hx Substance Use: No - Infectious Disease Hx of Infectious Diseases: None - Tetanus Immunizations Tetanus Immunization: Unknown - Past Medical History & Family History Past Medical History?: Yes - CARDIAC Hx Hypertension: Yes - PULMONARY Hx Chronic Obstructive Pulmonary Disease (COPD): Yes - NEUROLOGICAL Hx Seizures: No - HEENT Hx HEENT Problems: No - RENAL Hx Chronic Kidney Disease: No - ENDOCRINE/METABOLIC Hx Endocrine Disorders: No - HEMATOLOGICAL/ONCOLOGICAL Hx Blood Disorders: No - INTEGUMENTARY Hx Dermatological Problems: No - MUSCULOSKELETAL/RHEUMATOLOGICAL Hx Falls: No - GASTROINTESTINAL Hx Gastrointestinal Disorders: No - GENITOURINARY/GYNECOLOGICAL Hx Sexually Transmitted Disorders: No - SURGICAL HISTORY Hx Cardiac Catheterization: Yes (1 month ago) Other/Comment: cardiac cath. - ANESTHESIA Hx Anesthesia: No Hx Anesthesia Reactions: No Hx Malignant Hyperthermia: No - Medical/Surgical History Reviewed & confirmed: by ri Meds Allergies/Adverse Reactions: Allergies Allergy/AdvReac Type Severity Reaction Status Date / Time shrimp Allergy Mild SWELLING Verified 04/06/18 18:30 shellfish derived Allergy SWELLING Verified 04/06/18 18:30 Mental Status Examination - Personal Presentation Personal Presentation: Looks stated age - Affect Affect: Constricted, Flat - Motor Activity Motor Activity: Calm - Reliability in Providing Information Reliability in Providing Information: Fair - Speech Speech: Organized - Mood Mood: Depressed, Anxious - Formal Thought Process Formal Thought Process: No Impairment - Obsessions/Compulsions Obsessions: No Compulsions: No - Cognitive Functions Orientation: Person, Place, Situation Sensorium: Alert Attention/Concentration: Attentive Estimate of Intelligence: Average Judgement: Intact, as evidence by: Insight regarding need for hospitalization Memory: Recent intact, as evidence by: Ability to recall events of the day - Risk Risk: Suicidal, Withdrawal, Diminished functioning - Limitations Limitations: Other ( of his only child, David who was 16 yo when he was shot to last week) Psychiatric Physical Exam - Physical Exam Reviewed and confirmed: Emergency Department Physical Exam (Please refer to ER report dated 04/05/18 for physical exam and ROS findings. ) Results - Vital Signs Recent Vital Signs: Last Vital Signs Temp 97.8 F 04/06/18 09:09 Pulse 69 04/06/18 16:00 Resp 18 04/06/18 10:25 BP 145/92 H 04/06/18 16:00 Pulse Ox 98 04/06/18 09:16 - Labs Result Diagrams: 04/07/18 07:40 04/05/18 23:25 - Impressions Impression: Please refer to ER report dated 04/05/18 for physical exam and ROS findings. DSM Plan - DSM 5 DSM 5 Diagnosis: Bipolar disorder by history Grief Polysubstance Dependency Substance Induced Mood Disorder - Recommended/Plan of Treatment Treatment Recommendations and Plan of Treatment: * group, milieu and supportive tx * Seroquel 50 mg po AM and 100 mg HS for mood control * Remeron 15 mg po HS for depression * Ativan 1 mg po q6 for alcohol withdrawal/anxiety, taper as tolerated * Consider naltrexone to help with abstinence however patient has been resistant ot address his substance abuse in the past. * Haldol + Ativan prns for agitation * Vitals reviewed and noted below: Selected Entries 04/07/18 07:11 Temperature 97.7 F Pulse Rate 60 Respiratory 20 Rate Blood Pressure 130/81 Please refer to ER report dated 04/05/18 for physical exam and ROS findings. PER ED NOTE ON 04/06/18 CT chest: FINDINGS: IMPRESSION: 1. No right-sided pulmonary mass identified. A tiny nodule is seen at the lingula subpleural in location as discussed above. Clinically correlate as to the patient's risk factors for developing lung cancer. Follow-up CT may be considered in 12 months if clinically warranted. 2. No consolidation bilaterally. Limited scattered ground-glass opacity bilaterally. 3. No significant lymphadenopathy. 4. Prominent main pulmonary artery measuring up to 3.5 cm. Consider possible pulmonary artery hypertension. Cardiomegaly. No pulmonary vascular congestion grossly evident. 5. Small exostosis or bony deformity bridges the anteromedial right 4th and 5th ribs. Preliminary report provided by Javi, 04/06/2018 1:40 a.m.. Discordant as per impression 1. PA review assigned. ADMISSION LABS NOTED BELOW Laboratory Tests 04/05/18 04/05/18 04/05/18 23:25 23:25 23:25 WBC 6.5 D RBC 4.61 Hgb 12.9 L Hct 37.9 L MCV 82.2 MCH 28.0 MCHC 34.0 RDW 15.3 H Plt Count 259 MPV 9.1 Neut % (Auto) 53.9 Lymph % (Auto) 37.8 H [place] % (Auto) 4.9 Eos % (Auto) 2.9 Baso % (Auto) 0.5 Lymph # (Auto) 2.5 [place] # (Auto) 0.3 Eos # (Auto) 0.2 Baso # (Auto) 0.03 Absolute Neuts (auto) 3.52 Sodium 142 Potassium 3.8 Chloride 109 H Carbon Dioxide 24 Anion Gap 12 BUN 15 Creatinine 1.0 Est GFR ( Amer) > 60 Est GFR (Non-Af Amer) > 60 Random Glucose 140 H Fasting Glucose Calcium 9.0 Magnesium 2.3 H Total Bilirubin 0.3 AST 27 ALT 32 Alkaline Phosphatase 84 Total Creatine Kinase 272 H CK-MB (CK-2) 1.6 CK-MB (CK-2) % Cancelled Total Protein 7.2 Albumin 4.1 Globulin 3.1 Albumin/Globulin Ratio 1.3 Triglycerides Cholesterol LDL Cholesterol Direct HDL Cholesterol TSH 3rd Generation Urine Color Urine Appearance Urine pH Ur Specific [place] Urine Protein Urine Glucose (UA) Urine Ketones Urine Blood Urine Nitrate Urine Bilirubin Urine Urobilinogen Ur Leukocyte Esterase Salicylates < 1 L Urine Opiates Screen Urine Methadone Screen Acetaminophen < 10.0 L Ur Barbiturates Screen Ur Phencyclidine Scrn Ur Amphetamines Screen U Benzodiazepines Scrn U Oth Cocaine Metabols U Cannabinoids Screen Alcohol, Quantitative 04/05/18 04/06/18 04/06/18 23:25 03:00 03:00 WBC RBC Hgb Hct MCV MCH MCHC RDW Plt Count MPV Neut % (Auto) Lymph % (Auto) [place] % (Auto) Eos % (Auto) Baso % (Auto) Lymph # (Auto) [place] # (Auto) Eos # (Auto) Baso # (Auto) Absolute Neuts (auto) Sodium Potassium Chloride Carbon Dioxide Anion Gap BUN Creatinine Est GFR ( Amer) Est GFR (Non-Af Amer) Random Glucose Fasting Glucose Calcium Magnesium Total Bilirubin AST ALT Alkaline Phosphatase Total Creatine Kinase CK-MB (CK-2) CK-MB (CK-2) % Total Protein Albumin Globulin Albumin/Globulin Ratio Triglycerides Cholesterol LDL Cholesterol Direct HDL Cholesterol TSH 3rd Generation Urine Color Yellow Urine Appearance Clear Urine pH 6.0 Ur Specific [place] >= 1.030 Urine Protein Negative Urine Glucose (UA) Negative Urine Ketones Negative Urine Blood Negative Urine Nitrate Negative Urine Bilirubin Negative Urine Urobilinogen 0.2 Ur Leukocyte Esterase Negative Salicylates Urine Opiates Screen Negative Urine Methadone Screen Negative Acetaminophen Ur Barbiturates Screen Negative Ur Phencyclidine Scrn Negative Ur Amphetamines Screen Negative U Benzodiazepines Scrn Positive H U Oth Cocaine Metabols Positive H U Cannabinoids Screen Positive H Alcohol, Quantitative 85 H 04/07/18 04/07/18 04/07/18 07:40 07:40 07:40 WBC 4.5 D RBC 4.51 Hgb 12.6 L Hct 37.3 L MCV 82.7 MCH 27.9 MCHC 33.8 RDW 15.3 H Plt Count 250 MPV 9.1 Neut % (Auto) 53.5 Lymph % (Auto) 35.9 H [place] % (Auto) 6.4 H Eos % (Auto) 3.3 Baso % (Auto) 0.9 Lymph # (Auto) 1.6 [place] # (Auto) 0.3 Eos # (Auto) 0.2 Baso # (Auto) 0.04 Absolute Neuts (auto) 2.43 Sodium Potassium Chloride Carbon Dioxide Anion Gap BUN Creatinine Est GFR ( Amer) Est GFR (Non-Af Amer) Random Glucose Fasting Glucose 108 Calcium Magnesium Total Bilirubin AST ALT Alkaline Phosphatase Total Creatine Kinase CK-MB (CK-2) CK-MB (CK-2) % Total Protein Albumin Globulin Albumin/Globulin Ratio Triglycerides 76 Cholesterol 163 LDL Cholesterol Direct 103 HDL Cholesterol 52 TSH 3rd Generation 0.16 L Urine Color Urine Appearance Urine pH Ur Specific [place] Urine Protein Urine Glucose (UA) Urine Ketones Urine Blood Urine Nitrate Urine Bilirubin Urine Urobilinogen Ur Leukocyte Esterase Salicylates Urine Opiates Screen Urine Methadone Screen Acetaminophen Ur Barbiturates Screen Ur Phencyclidine Scrn Ur Amphetamines Screen U Benzodiazepines Scrn U Oth Cocaine Metabols U Cannabinoids Screen Alcohol, Quantitative Projected ELOS: 7 d Prognosis: guarded Discharge Plan and Discharge Criteria: dual diagnosis program Initial Psych Certification - Initial Certification I certify that the inpatient psychiatric facility admission was medically necessary for either: Treatment which could reasonbly be expected to improve pt's condition, Diagnostic study I estimate of hospitalization is necessary for proper treatment of the patient: 7 Unit of Time: Days
--- NOTE | 2018-04-07 20:40 | CON ---
DATE: 04/07/2018 HISTORY OF PRESENT ILLNESS: He is in psychiatric floor. I was consulted to see him. He is a 53-year-old man who presents with depression and cardiac catheterization with suicidal ideation. He has been depressed that his son killed himself a week ago and now he wants to kill himself, he has got no plan. He has been drinking a lot and now he is here very depressed and very sad. PAST MEDICAL HISTORY: He has hypertension, COPD history, anxiety, bipolar, depression, and schizophrenia. He had a cardiac cath a month ago. FAMILY HISTORY: No known family history. SOCIAL HISTORY: He is still smoking cigarettes. He is drinking alcohol. He uses cocaine and marijuana. ALLERGIES: HE IS ALLERGIC TO SHRIMP AND SHELLFISH. MEDICATIONS: He does not take any home medications. REVIEW OF SYSTEMS: He is very sad. No fevers or night sweats. No shortness of breath or cough. No chest pain or palpitations. No vision or hearing changes. No sore throat. No abdominal pain. No nausea, vomiting, constipation, or diarrhea. No back pain or neck pain. No headache or dizziness. He is suicidal. PHYSICAL EXAMINATION: VITAL SIGNS: He has a 97.7 temperature, 60 pulse, 130/81 blood pressure, 20 respiratory rate, and 98% O2 saturation on room air. HEENT: Head is atraumatic and normocephalic. Extraocular muscles are intact. Pupils are equally reactive to light. Throat is moist. NECK: Supple. HEART: Regular rate. Normal S1 and S2. LUNGS: Decreased breath sounds, but clear to auscultation. ABDOMEN: Soft and nontender. Positive bowel sounds. EXTREMITIES: No edema. GCS is 15. Cranial nerves II through XII grossly intact. SKIN: Warm and dry. NEUROLOGIC: Alert and oriented x3. LYMPHS: Thyroid midline. No palpable appreciable lymphadenopathy. He is very sad. LABORATORY DATA: He has 142 sodium, potassium 3.8, BUN 15, creatinine 1, GFR is greater than 60, sugar is also 108, calcium is 9, total bilirubin is 0.3, and magnesium is 2.3. AST is 27, ALT is 32, alkaline phosphatase is 84, total creatine kinase is 272, triglycerides 76, cholesterol is 163, TSH 0.16, we will repeat that. White count is 4.5, hemoglobin 12.6, hematocrit 37.3, and platelets 250. Urine is clean. He is positive for benzodiazepines, cocaine, marijuana, and alcohol. ASSESSMENT AND PLAN: He is depressed. He recently had cardiac catheterization. He has some ischemic changes on electrocardiogram, I will call in Cardiology for his opinion. We will check the labs tomorrow. Repeat the thyroid stimulating hormone. He is here for drug abuse, depression, recent cardiac catheterization, and electrocardiogram changes. Narinder Camacho DO MTDD
--- NOTE | 2018-04-08 12:40 | PN ---
DATE: 04/08/2018 SUBJECTIVE: He is being seen in the psychiatric floor. He is a little bit better than when he came in and he was quite depressed after his son about a week ago. He did some drugs and alcohol. He is very depressed. MEDICATIONS: He is on Ativan, Benadryl, Haldol, Maalox, milk of magnesia, Remeron, Seroquel and Tylenol. OBJECTIVE: VITAL SIGNS: He has a 97.6 temperature, 72 pulse, 137/93 blood pressure, it was 145/98 yesterday. I will adjust his medications for blood pressure. HEENT: Head is atraumatic, normocephalic. HEART: Regular rate. LUNGS: Decreased breath sounds, but clear. ABDOMEN: Soft, obese. EXTREMITIES: No edema. He is on Ativan, Benadryl, Haldol, milk of magnesia, Maalox, Remeron, Seroquel, Tylenol. I will add a blood pressure medication some valsartan 80. LABORATORY DATA: White count is 4.5, hemoglobin is 12.6, platelets of 250. 142 sodium, potassium 3.8, BUN creatinine 1. GFR is greater than 60, sugar is 108, calcium 9, magnesium 2.3, tota bili is 0.3. AST is 27, ALT is 32, alk phos 84. TSH is 0.16. ASSESSMENT AND PLAN: I will repeat a TSH and put him on the blood pressure medication. We will watch him closely. Hopefully, he will continue to improve depression, drug abuse, alcohol abuse after the loss of his son. Narinder Camacho DO MTDD
--- NOTE | 2018-04-08 15:00 | PCM.PYCHPN ---
Psychiatric Progress Note - Psychiatric Progress Note Patient seen today, length of contact: 30 min Patient Chief Complaint: "as you know my son was killed couple of days ago, I wanted to end up my life, I was using drugs, I don't remember what I used but I came here for help". Problems Identified/Issues Discussed: Risk/benefits and alternatives of medications discussed, suicide/ homicide prevention, past psychiatric h/o, current psychiatric symptoms, medical problems, risk/benefits and alternatives of medications, medications compliance, coping strategies, substance abuse h/o, relapse prevention, importance of follow up with psychiatrist and therapist, discharge plan. Medical Problems: History of cardiac cath, some ischemic changes on electrocardiogram, obesity, substance abuse. Diagnostic Results: 04/07/18 07:40 04/05/18 23:25 Lab Results 04/07/18 07:40: TSH 3rd Generation 0.16 L 04/07/18 07:40: Fasting Glucose 108, Triglycerides 76, Cholesterol 163, LDL Cholesterol Direct 103, HDL Cholesterol 52 04/07/18 07:40: RPR Nonreactive 04/07/18 07:40: WBC 4.5 D, RBC 4.51, Hgb 12.6 L, Hct 37.3 L, MCV 82.7, MCH 27.9, MCHC 33.8, RDW 15.3 H, Plt Count 250, MPV 9.1, Neut % (Auto) 53.5, Lymph % (Auto) 35.9 H, [place] % (Auto) 6.4 H, Eos % (Auto) 3.3, Baso % (Auto) 0.9, Lymph # (Auto) 1.6, [place] # (Auto) 0.3, Eos # (Auto) 0.2, Baso # (Auto) 0.04, Absolute Neuts (auto) 2.43 04/06/18 03:00: Urine Opiates Screen Negative, Urine Methadone Screen Negative, Ur Barbiturates Screen Negative, Ur Phencyclidine Scrn Negative, Ur Amphetamines Screen Negative, U Benzodiazepines Scrn Positive H, U Oth Cocaine Metabols Positive H, U Cannabinoids Screen Positive H 04/06/18 03:00: Urine Color Yellow, Urine Appearance Clear, Urine pH 6.0, Ur Specific [place] >= 1.030, Urine Protein Negative, Urine Glucose (UA) Negative, Urine Ketones Negative, Urine Blood Negative, Urine Nitrate Negative, Urine Bilirubin Negative, Urine Urobilinogen 0.2, Ur Leukocyte Esterase Negative 04/05/18 23:25: Alcohol, Quantitative 85 H 04/05/18 23:25: Salicylates < 1 L, Acetaminophen < 10.0 L 04/05/18 23:25: Sodium 142, Potassium 3.8, Chloride 109 H, Carbon Dioxide 24, Anion Gap 12, BUN 15, Creatinine 1.0, Est GFR ( Amer) > 60, Est GFR (Non- Af Amer) > 60, Random Glucose 140 H, Calcium 9.0, Magnesium 2.3 H, Total Bilirubin 0.3, AST 27, ALT 32, Alkaline Phosphatase 84, Total Creatine Kinase 272 H, CK-MB (CK-2) 1.6, CK-MB (CK-2) % Cancelled, Total Protein 7.2, Albumin 4.1, Globulin 3.1, Albumin/Globulin Ratio 1.3 04/05/18 23:25: WBC 6.5 D, RBC 4.61, Hgb 12.9 L, Hct 37.9 L, MCV 82.2, MCH 28.0, MCHC 34.0, RDW 15.3 H, Plt Count 259, MPV 9.1, Neut % (Auto) 53.9, Lymph % (Auto) 37.8 H, [place] % (Auto) 4.9, Eos % (Auto) 2.9, Baso % (Auto) 0.5, Lymph # (Auto) 2.5, [place] # (Auto) 0.3, Eos # (Auto) 0.2, Baso # (Auto) 0.03, Absolute Neuts (auto) 3.52 Vital Signs Temp Pulse Pulse Resp BP Pulse Ox 04/08/18 13:46 96 H 144/86 04/08/18 07:07 97.6 F 72 137/93 H 04/07/18 16:00 100 H 145/98 H 04/07/18 07:11 97.7 F 60 20 130/81 04/06/18 16:00 69 145/92 H 04/06/18 10:25 65 18 04/06/18 09:16 98 04/06/18 09:09 97.8 F 68 18 139/76 98 04/06/18 07:54 78 18 133/75 99 04/06/18 06:02 69 19 121/86 100 04/06/18 04:15 89 17 141/81 100 04/06/18 02:09 82 16 128/75 97 04/05/18 23:00 98.8 F 86 18 124/80 97 DSM 5 Symptoms Update: as per evaluation: Patient is a 53 year old single AA male with a history of Bipolar Disorder, alcohol, cocaine, heroin and cannabis use disorder, multiple admissions and detoxes-most recently psychiatrically admitted [place] [facility] [place]14[place]17-11/23/17, reportedly in outpatient psychiatric treatment in [place] and compliant with remeron and seroquel who presented to the [facility] emergency department complaining of depression and suicidal ideation because his 26 yo son, David was shot to in [place] on 03/30/18. UDS was positive for benzos, cocaine and cannabis. BAL = 85. Of note: Patient has history of disrespectful, agitated behavior and administrative discharge in the past, h/o malingering and manipulative behavior. pt was seen by yesterday, pt reported feeling depressed and hopeless since his son was killed last week. He is upset that his family is blaming him for this son's . 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 As per patient he was noncompliant with her medications and follow-up appointments after discharge from this facility, reason is unknown. Patient reported that his son was killed last week, as a result patient became depressed, hopeless, helpless, worthless, relapsed on drugs, patient reported that he does not remember what drugs he used prior to come to the hospital. So far patient tolerates medications well, no side effects observed or reported, aims 0, no EPS. Impression: Bipolar disorder as per history Grief Polysubstance dependence Substance-induced mood disorder Medication Change: No (Started yesterday) Medical Record Reviewed: Yes Consults ordered or reviewed: Patient was seen by medical team Dr. Camacho. Mental Status Examination - Cognitive Function Orientation: Person, Place, Situation Memory: Intact Attention: Poor Concentration: Poor Association: WNL Fund of Knowledge: WNL - Mood Mood: Depressed, Anxious - Affect Affect: Constricted, Flat - Formal Thought Process Formal Thought Process: No Impairment - Suicidal Ideation Suicidal Ideation: No - Homicidal Ideation Homicidal Ideation: No Goal/Treatment Plan - Goal/Treatment Plan Need for Continued Stay: Remain at risks for inpatient hospitalization, Severe depression anxiety, Discharge may exacerbated symptoms, Severe functional impairment Progress Toward Problem(s) and Goals/Treatment Plan: group, milieu and supportive tx * Seroquel 50 mg po AM and 100 mg HS for mood control * Remeron 15 mg po HS for depression * Ativan 1 mg po q6 for alcohol withdrawal/anxiety, taper as tolerated * Consider naltrexone to help with abstinence however patient has been resistant ot address his substance abuse in the past. 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
[2018-04-09 07:24] VITALS: RESP 20
--- NOTE | 2018-04-09 09:12 | PCM.PYCHPN ---
Psychiatric Progress Note - Psychiatric Progress Note Patient seen today, length of contact: 30 min Problems Identified/Issues Discussed: I reviewed recent notes and met with patient at bedside this morning. He is oriented to location, month, year and circumstances. Patient appears tired, mildly irritable and withdrawn. Patient denies hallucinations at this time and demonstrates no signs of psychosis. Denies any new pain or discomfort. Thus far he is tenuously in control on the unit though has been noted to be labile and irritable with poor frustration tolerance at times. Diagnostic Results: Bipolar disorder as per history Grief Polysubstance dependence Substance-induced mood disorder Medication Change: Yes (decreased ativan) Medical Record Reviewed: Yes Mental Status Examination - Cognitive Function Orientation: Person, Place, Situation Memory: Intact Attention: Poor Concentration: Poor Association: WNL Fund of Knowledge: WNL - Mood Mood: Depressed, Anxious - Affect Affect: Constricted (mildly irritable), Flat - Formal Thought Process Formal Thought Process: No Impairment - Suicidal Ideation Suicidal Ideation: No - Homicidal Ideation Homicidal Ideation: No Goal/Treatment Plan - Goal/Treatment Plan Need for Continued Stay: Remain at risks for inpatient hospitalization, Severe depression anxiety, Discharge may exacerbated symptoms, Severe functional impairment Progress Toward Problem(s) and Goals/Treatment Plan: * group, milieu and supportive tx * Seroquel 50 mg po AM and 100 mg HS for mood control * Remeron 15 mg po HS for depression * Ativan 1 mg po q6 decreased to 1 mg po q8 for alcohol withdrawal/anxiety, taper as tolerated * Consider naltrexone to help with abstinence however patient has been resistant to address his substance abuse in the past. * Haldol + Ativan prns for agitation * Vitals reviewed and noted below: Selected Entries 04/08/18 04/08/18 04/08/18 07:07 13:46 15:00 Temperature 97.6 F Pulse Rate 72 96 H 88 Respiratory 18 Rate Blood Pressure 137/93 H 144/86 134/84 Please refer to ER report dated 04/05/18 for physical exam and ROS findings. PER ED NOTE ON 04/06/18 CT chest: FINDINGS: IMPRESSION: 1. No right-sided pulmonary mass identified. A tiny nodule is seen at the lingula subpleural in location as discussed above. Clinically correlate as to the patient's risk factors for developing lung cancer. Follow-up CT may be considered in 12 months if clinically warranted. 2. No consolidation bilaterally. Limited scattered ground-glass opacity bilaterally. 3. No significant lymphadenopathy. 4. Prominent main pulmonary artery measuring up to 3.5 cm. Consider possible pulmonary artery hypertension. Cardiomegaly. No pulmonary vascular congestion grossly evident. 5. Small exostosis or bony deformity bridges the anteromedial right 4th and 5th ribs. Preliminary report provided by Javi, 04/06/2018 1:40 a.m.. Discordant as per impression 1. PA review assigned. ADMISSION LABS NOTED BELOW Laboratory Tests 04/05/18 04/05/18 04/05/18 23:25 23:25 23:25 WBC 6.5 D RBC 4.61 Hgb 12.9 L Hct 37.9 L MCV 82.2 MCH 28.0 MCHC 34.0 RDW 15.3 H Plt Count 259 MPV 9.1 Neut % (Auto) 53.9 Lymph % (Auto) 37.8 H [place] % (Auto) 4.9 Eos % (Auto) 2.9 Baso % (Auto) 0.5 Lymph # (Auto) 2.5 [place] # (Auto) 0.3 Eos # (Auto) 0.2 Baso # (Auto) 0.03 Absolute Neuts (auto) 3.52 Sodium 142 Potassium 3.8 Chloride 109 H Carbon Dioxide 24 Anion Gap 12 BUN 15 Creatinine 1.0 Est GFR ( Amer) > 60 Est GFR (Non-Af Amer) > 60 Random Glucose 140 H Fasting Glucose Calcium 9.0 Magnesium 2.3 H Total Bilirubin 0.3 AST 27 ALT 32 Alkaline Phosphatase 84 Total Creatine Kinase 272 H CK-MB (CK-2) 1.6 CK-MB (CK-2) % Cancelled Total Protein 7.2 Albumin 4.1 Globulin 3.1 Albumin/Globulin Ratio 1.3 Triglycerides Cholesterol LDL Cholesterol Direct HDL Cholesterol TSH 3rd Generation Urine Color Urine Appearance Urine pH Ur Specific [place] Urine Protein Urine Glucose (UA) Urine Ketones Urine Blood Urine Nitrate Urine Bilirubin Urine Urobilinogen Ur Leukocyte Esterase Salicylates < 1 L Urine Opiates Screen Urine Methadone Screen Acetaminophen < 10.0 L Ur Barbiturates Screen Ur Phencyclidine Scrn Ur Amphetamines Screen U Benzodiazepines Scrn U Oth Cocaine Metabols U Cannabinoids Screen Alcohol, Quantitative 04/05/18 04/06/18 04/06/18 23:25 03:00 03:00 WBC RBC Hgb Hct MCV MCH MCHC RDW Plt Count MPV Neut % (Auto) Lymph % (Auto) [place] % (Auto) Eos % (Auto) Baso % (Auto) Lymph # (Auto) [place] # (Auto) Eos # (Auto) Baso # (Auto) Absolute Neuts (auto) Sodium Potassium Chloride Carbon Dioxide Anion Gap BUN Creatinine Est GFR ( Amer) Est GFR (Non-Af Amer) Random Glucose Fasting Glucose Calcium Magnesium Total Bilirubin AST ALT Alkaline Phosphatase Total Creatine Kinase CK-MB (CK-2) CK-MB (CK-2) % Total Protein Albumin Globulin Albumin/Globulin Ratio Triglycerides Cholesterol LDL Cholesterol Direct HDL Cholesterol TSH 3rd Generation Urine Color Yellow Urine Appearance Clear Urine pH 6.0 Ur Specific [place] >= 1.030 Urine Protein Negative Urine Glucose (UA) Negative Urine Ketones Negative Urine Blood Negative Urine Nitrate Negative Urine Bilirubin Negative Urine Urobilinogen 0.2 Ur Leukocyte Esterase Negative Salicylates Urine Opiates Screen Negative Urine Methadone Screen Negative Acetaminophen Ur Barbiturates Screen Negative Ur Phencyclidine Scrn Negative Ur Amphetamines Screen Negative U Benzodiazepines Scrn Positive H U Oth Cocaine Metabols Positive H U Cannabinoids Screen Positive H Alcohol, Quantitative 85 H 04/07/18 04/07/18 04/07/18 07:40 07:40 07:40 WBC 4.5 D RBC 4.51 Hgb 12.6 L Hct 37.3 L MCV 82.7 MCH 27.9 MCHC 33.8 RDW 15.3 H Plt Count 250 MPV 9.1 Neut % (Auto) 53.5 Lymph % (Auto) 35.9 H [place] % (Auto) 6.4 H Eos % (Auto) 3.3 Baso % (Auto) 0.9 Lymph # (Auto) 1.6 [place] # (Auto) 0.3 Eos # (Auto) 0.2 Baso # (Auto) 0.04 Absolute Neuts (auto) 2.43 Sodium Potassium Chloride Carbon Dioxide Anion Gap BUN Creatinine Est GFR ( Amer) Est GFR (Non-Af Amer) Random Glucose Fasting Glucose 108 Calcium Magnesium Total Bilirubin AST ALT Alkaline Phosphatase Total Creatine Kinase CK-MB (CK-2) CK-MB (CK-2) % Total Protein Albumin Globulin Albumin/Globulin Ratio Triglycerides 76 Cholesterol 163 LDL Cholesterol Direct 103 HDL Cholesterol 52 TSH 3rd Generation 0.16 L Urine Color Urine Appearance Urine pH Ur Specific [place] Urine Protein Urine Glucose (UA) Urine Ketones Urine Blood Urine Nitrate Urine Bilirubin Urine Urobilinogen Ur Leukocyte Esterase Salicylates Urine Opiates Screen Urine Methadone Screen Acetaminophen Ur Barbiturates Screen Ur Phencyclidine Scrn Ur Amphetamines Screen U Benzodiazepines Scrn U Oth Cocaine Metabols U Cannabinoids Screen Alcohol, Quantitative Estimated Date of D/C: 04/12/18
[2018-04-09] MEDS: Petrolatum-Mineral Oil Oint (100gm) TOP SCH ×2 (13:25→17:22)
--- NOTE | 2018-04-09 16:47 | PN ---
DATE: 04/09/2018 SUBJECTIVE: I saw him in the psychiatric floor. He has complaint of psoriasis bothering him, he wants a lotion, I will get him some lotion. He is on Ativan, Benadryl, Cozaar, Haldol, Maalox, Milk of Magnesia, Remeron, Seroquel, and Tylenol. He is doing better than when he came in. He is feeling better, taking his medicines, participating, less depressed. PHYSICAL EXAMINATION: VITAL SIGNS: Temperature 96.6, pulse 71, blood pressure 117/75, respiratory rate 20. HEAD: Head is atraumatic, normocephalic. HEART: Regular rate. LUNGS: Decreased breath sounds, but clear. ABDOMEN: Soft, obese. EXTREMITIES: No edema. SKIN: He does have some skin psoriasis. We will give some cream for that. LABORATORY DATA: His RPR was nonreactive. His white count is 4.5, hemoglobin 12.6, hematocrit 37.3, and platelets of 250. He has sodium of 142, potassium 3.8, BUN 15, creatinine 1. GFR is greater than 60. Sugar is 108, calcium is 9, magnesium 2.3, total bilirubin 0.3, AST is 27, ALT is 32, alkaline phosphatase is 84. Cholesterol was 163. His TSH corrected to 0.72. ASSESSMENT AND PLAN: He came in due to his son passing away a week ago. He then did cocaine and alcohol, benzodiazepines, marijuana and if he keeps getting off all those drugs and he is feeing a little bit less depressed; we will give him some cream for the psoriasis. He is told not to do those things anymore. Narinder Camacho DO
[2018-04-10] MEDS: Petrolatum-Mineral Oil Oint (100gm) TOP SCH ×4 (00:15→17:22)
[2018-04-10 07:19] VITALS: TEMP 97.8
--- NOTE | 2018-04-10 08:26 | PCM.PYCHPN ---
Psychiatric Progress Note - Psychiatric Progress Note Patient seen today, length of contact: 30 min Problems Identified/Issues Discussed: I reviewed recent notes and met with patient in the morning. He is oriented to location, month, year and circumstances. Patient is tired and irritable. Patient denies hallucinations and demonstrates no signs of psychosis. Denies any new pain or discomfort. Thus far he is tenuously in control on the unit though has been noted to be labile and irritable with poor frustration tolerance at times. He is slowly becoming more visible and engaged on the unit. Diagnostic Results: Bipolar disorder as per history Grief Polysubstance dependence Substance-induced mood disorder Medication Change: Yes (decreased ativan) Medical Record Reviewed: Yes Mental Status Examination - Cognitive Function Orientation: Person, Place, Situation Memory: Intact Attention: Poor Concentration: Poor Association: WNL Fund of Knowledge: WNL - Mood Mood: Depressed, Anxious - Affect Affect: Constricted (mildly irritable), Flat - Formal Thought Process Formal Thought Process: No Impairment - Suicidal Ideation Suicidal Ideation: No - Homicidal Ideation Homicidal Ideation: No Goal/Treatment Plan - Goal/Treatment Plan Need for Continued Stay: Remain at risks for inpatient hospitalization, Severe depression anxiety, Discharge may exacerbated symptoms, Severe functional impairment Progress Toward Problem(s) and Goals/Treatment Plan: * group, milieu and supportive tx * Appreciate f/u by Dr. Camacho 04/09/18~started cream for psoriasis * Seroquel 50 mg po AM and 100 mg HS for mood control * Remeron 15 mg po HS for depression * Ativan 1 mg po q6 decreased to 1 mg po q8 for alcohol withdrawal/anxiety, taper as tolerated * Consider naltrexone to help with abstinence however patient has been resistant to address his substance abuse in the past. * Haldol + Ativan prns for agitation * Vitals reviewed and noted below: Selected Entries 04/10/18 07:00 Temperature 97.8 F Pulse Rate 74 Respiratory 20 Rate Blood Pressure 120/76 * Weekend lab results noted below: 04/09/18 06:50 TSH 3rd Generation 0.72 Please refer to ER report dated 04/05/18 for physical exam and ROS findings. PER ED NOTE ON 04/06/18 CT chest: FINDINGS: IMPRESSION: 1. No right-sided pulmonary mass identified. A tiny nodule is seen at the lingula subpleural in location as discussed above. Clinically correlate as to the patient's risk factors for developing lung cancer. Follow-up CT may be considered in 12 months if clinically warranted. 2. No consolidation bilaterally. Limited scattered ground-glass opacity bilaterally. 3. No significant lymphadenopathy. 4. Prominent main pulmonary artery measuring up to 3.5 cm. Consider possible pulmonary artery hypertension. Cardiomegaly. No pulmonary vascular congestion grossly evident. 5. Small exostosis or bony deformity bridges the anteromedial right 4th and 5th ribs. Preliminary report provided by Javi, 04/06/2018 1:40 a.m.. Discordant as per impression 1. PA review assigned. ADMISSION LABS NOTED BELOW Laboratory Tests 04/05/18 04/05/18 04/05/18 23:25 23:25 23:25 WBC 6.5 D RBC 4.61 Hgb 12.9 L Hct 37.9 L MCV 82.2 MCH 28.0 MCHC 34.0 RDW 15.3 H Plt Count 259 MPV 9.1 Neut % (Auto) 53.9 Lymph % (Auto) 37.8 H [place] % (Auto) 4.9 Eos % (Auto) 2.9 Baso % (Auto) 0.5 Lymph # (Auto) 2.5 [place] # (Auto) 0.3 Eos # (Auto) 0.2 Baso # (Auto) 0.03 Absolute Neuts (auto) 3.52 Sodium 142 Potassium 3.8 Chloride 109 H Carbon Dioxide 24 Anion Gap 12 BUN 15 Creatinine 1.0 Est GFR ( Amer) > 60 Est GFR (Non-Af Amer) > 60 Random Glucose 140 H Fasting Glucose Calcium 9.0 Magnesium 2.3 H Total Bilirubin 0.3 AST 27 ALT 32 Alkaline Phosphatase 84 Total Creatine Kinase 272 H CK-MB (CK-2) 1.6 CK-MB (CK-2) % Cancelled Total Protein 7.2 Albumin 4.1 Globulin 3.1 Albumin/Globulin Ratio 1.3 Triglycerides Cholesterol LDL Cholesterol Direct HDL Cholesterol TSH 3rd Generation Urine Color Urine Appearance Urine pH Ur Specific [place] Urine Protein Urine Glucose (UA) Urine Ketones Urine Blood Urine Nitrate Urine Bilirubin Urine Urobilinogen Ur Leukocyte Esterase Salicylates < 1 L Urine Opiates Screen Urine Methadone Screen Acetaminophen < 10.0 L Ur Barbiturates Screen Ur Phencyclidine Scrn Ur Amphetamines Screen U Benzodiazepines Scrn U Oth Cocaine Metabols U Cannabinoids Screen Alcohol, Quantitative 04/05/18 04/06/18 04/06/18 23:25 03:00 03:00 WBC RBC Hgb Hct MCV MCH MCHC RDW Plt Count MPV Neut % (Auto) Lymph % (Auto) [place] % (Auto) Eos % (Auto) Baso % (Auto) Lymph # (Auto) [place] # (Auto) Eos # (Auto) Baso # (Auto) Absolute Neuts (auto) Sodium Potassium Chloride Carbon Dioxide Anion Gap BUN Creatinine Est GFR ( Amer) Est GFR (Non-Af Amer) Random Glucose Fasting Glucose Calcium Magnesium Total Bilirubin AST ALT Alkaline Phosphatase Total Creatine Kinase CK-MB (CK-2) CK-MB (CK-2) % Total Protein Albumin Globulin Albumin/Globulin Ratio Triglycerides Cholesterol LDL Cholesterol Direct HDL Cholesterol TSH 3rd Generation Urine Color Yellow Urine Appearance Clear Urine pH 6.0 Ur Specific [place] >= 1.030 Urine Protein Negative Urine Glucose (UA) Negative Urine Ketones Negative Urine Blood Negative Urine Nitrate Negative Urine Bilirubin Negative Urine Urobilinogen 0.2 Ur Leukocyte Esterase Negative Salicylates Urine Opiates Screen Negative Urine Methadone Screen Negative Acetaminophen Ur Barbiturates Screen Negative Ur Phencyclidine Scrn Negative Ur Amphetamines Screen Negative U Benzodiazepines Scrn Positive H U Oth Cocaine Metabols Positive H U Cannabinoids Screen Positive H Alcohol, Quantitative 85 H 04/07/18 04/07/18 04/07/18 07:40 07:40 07:40 WBC 4.5 D RBC 4.51 Hgb 12.6 L Hct 37.3 L MCV 82.7 MCH 27.9 MCHC 33.8 RDW 15.3 H Plt Count 250 MPV 9.1 Neut % (Auto) 53.5 Lymph % (Auto) 35.9 H [place] % (Auto) 6.4 H Eos % (Auto) 3.3 Baso % (Auto) 0.9 Lymph # (Auto) 1.6 [place] # (Auto) 0.3 Eos # (Auto) 0.2 Baso # (Auto) 0.04 Absolute Neuts (auto) 2.43 Sodium Potassium Chloride Carbon Dioxide Anion Gap BUN Creatinine Est GFR ( Amer) Est GFR (Non-Af Amer) Random Glucose Fasting Glucose 108 Calcium Magnesium Total Bilirubin AST ALT Alkaline Phosphatase Total Creatine Kinase CK-MB (CK-2) CK-MB (CK-2) % Total Protein Albumin Globulin Albumin/Globulin Ratio Triglycerides 76 Cholesterol 163 LDL Cholesterol Direct 103 HDL Cholesterol 52 TSH 3rd Generation 0.16 L Urine Color Urine Appearance Urine pH Ur Specific [place] Urine Protein Urine Glucose (UA) Urine Ketones Urine Blood Urine Nitrate Urine Bilirubin Urine Urobilinogen Ur Leukocyte Esterase Salicylates Urine Opiates Screen Urine Methadone Screen Acetaminophen Ur Barbiturates Screen Ur Phencyclidine Scrn Ur Amphetamines Screen U Benzodiazepines Scrn U Oth Cocaine Metabols U Cannabinoids Screen Alcohol, Quantitative Estimated Date of D/C: 04/12/18 - Smoking Cessation Smoking Cessation Initiated: No
--- NOTE | 2018-04-10 14:59 | PN ---
DATE: 04/10/2018 SUBJECTIVE: He is sitting out of bed to chair. He is resting comfortably. He ate his breakfast. He is in good spirits. He is getting the cream for his psoriasis. He was looking for something for his dentures, I do not think we have that tablet, another patient has some so he is happy about that. He feels better emotionally. MEDICATIONS: He is on Ativan, Benadryl, Cozaar, Haldol, Maalox, milk of magnesia, Remeron, Seroquel, and Tylenol. PHYSICAL EXAMINATION: VITAL SIGNS: He has 97.8 temperature, 74 pulse, 120/76 blood pressure, 20 respiratory rate. HEENT: His head is atraumatic, normocephalic. Throat is moist. NECK: Supple. HEART: Regular rate. LUNGS: Clear to auscultation. ABDOMEN: Soft, obese, nontender. EXTREMITIES: No edema. LABORATORY DATA: Last labs on 04/07/2018, he did okay. TSH came back to normal after admission. ASSESSMENT AND PLAN: His problem was his son about a week ago. He went on the benzodiazepine, cocaine, cannabis, and alcohol binge. He is very sad. He is starting to feel a little bit better. Continue aggressive treatment and care. We will follow. Narinder Camacho DO MTDD
[2018-04-11] MEDS: Petrolatum-Mineral Oil Oint (100gm) TOP SCH ×3 (05:17→13:23)
[2018-04-11 08:04] VITALS: BP 149/97; PULSE 104
--- NOTE | 2018-04-11 15:09 | PN ---
DATE: 04/11/2018 SUBJECTIVE: I saw him in psychiatric floor. He is sitting out of bed to chair. He is eating well. He is in good spirits. He says he wants to go home. He is on Ativan, Benadryl, Cozaar, Haldol, Hydrophor, Maalox, milk of magnesia, Remeron, Seroquel, and Tylenol. PHYSICAL EXAMINATION: VITAL SIGNS: He has a 97.8 temperature, 74 pulse, 120/76 blood pressure, his blood pressure was 149/97. HEENT: Head: Atraumatic and normocephalic. HEART: Regular rate. LUNGS: Decreased breath sounds, but clear. ABDOMEN: Soft, obese, and nontender. EXTREMITIES: No edema. ASSESSMENT AND PLAN: He is currently on Cozaar at 50 for his blood pressure and bumped it up to 100 mg today for his blood pressure. I encouraged him to continue the healthy participate in a no-salt diet, I note he had a lot of chips last night that is probably why it went up, but I will increase his Cozaar to 100 mg. I told him to watch his diet. He also knows no drugs, no alcohol anymore. I know his son about a week and a half ago, but he has got to deal with it in different ways, not drugs and drinking. Narinder Camacho DO MTDD
--- NOTE | 2018-04-11 16:45 | PCM.PYCHDC ---
Mental Status Examination - Mental Status Examination Orientation: Person, Place, Situation, Time Memory: Intact Mood: Neutral Affect: Constricted Speech: Appropriate Attention: WNL Concentration: WNL Association: WNL Fund of Knowledge: WNL Formal Thought Process: No Impairment Description of patient's judgement and insight: Improved, patient was compliant with her medications and unit rules and regulations, patient did not have any behavioral disturbances. No agitation no aggression. Psychotic Thoughts and Behaviors: Patient denied hearing voices denied seeing things, patient denied paranoia, patient does not present to be psychotic or disorganized. Suicidal Ideation: No Current Homicidal Ideation?: No Plan: Patient adamantly denied thoughts of harming himself or others, denied intent or plan. Discharge Summary - Discharge Note Reason for Hospitalization: Grief, possible suicidal ideation, please see admission note for more detailed information Psychiatric History (includes Medical, Family, Personal Hx): Long history of mood spectrum disorder and polysubstance abuse and dependen Laboratory Data: 04/07/18 07:40 04/05/18 23:25 Lab Results 04/09/18 06:50: TSH 3rd Generation 0.72 04/07/18 07:40: TSH 3rd Generation 0.16 L 04/07/18 07:40: Fasting Glucose 108, Triglycerides 76, Cholesterol 163, LDL Cholesterol Direct 103, HDL Cholesterol 52 04/07/18 07:40: RPR Nonreactive 04/07/18 07:40: WBC 4.5 D, RBC 4.51, Hgb 12.6 L, Hct 37.3 L, MCV 82.7, MCH 27.9, MCHC 33.8, RDW 15.3 H, Plt Count 250, MPV 9.1, Neut % (Auto) 53.5, Lymph % (Auto) 35.9 H, [place] % (Auto) 6.4 H, Eos % (Auto) 3.3, Baso % (Auto) 0.9, Lymph # (Auto) 1.6, [place] # (Auto) 0.3, Eos # (Auto) 0.2, Baso # (Auto) 0.04, Absolute Neuts (auto) 2.43 04/06/18 03:00: Urine Opiates Screen Negative, Urine Methadone Screen Negative, Ur Barbiturates Screen Negative, Ur Phencyclidine Scrn Negative, Ur Amphetamines Screen Negative, U Benzodiazepines Scrn Positive H, U Oth Cocaine Metabols Positive H, U Cannabinoids Screen Positive H 04/06/18 03:00: Urine Color Yellow, Urine Appearance Clear, Urine pH 6.0, Ur Specific [place] >= 1.030, Urine Protein Negative, Urine Glucose (UA) Negative, Urine Ketones Negative, Urine Blood Negative, Urine Nitrate Negative, Urine Bilirubin Negative, Urine Urobilinogen 0.2, Ur Leukocyte Esterase Negative 04/05/18 23:25: Alcohol, Quantitative 85 H 04/05/18 23:25: Salicylates < 1 L, Acetaminophen < 10.0 L 04/05/18 23:25: Sodium 142, Potassium 3.8, Chloride 109 H, Carbon Dioxide 24, Anion Gap 12, BUN 15, Creatinine 1.0, Est GFR ( Amer) > 60, Est GFR (Non- Af Amer) > 60, Random Glucose 140 H, Calcium 9.0, Magnesium 2.3 H, Total Bilirubin 0.3, AST 27, ALT 32, Alkaline Phosphatase 84, Total Creatine Kinase 272 H, CK-MB (CK-2) 1.6, CK-MB (CK-2) % Cancelled, Total Protein 7.2, Albumin 4.1, Globulin 3.1, Albumin/Globulin Ratio 1.3 04/05/18 23:25: WBC 6.5 D, RBC 4.61, Hgb 12.9 L, Hct 37.9 L, MCV 82.2, MCH 28. 0, MCHC 34.0, RDW 15.3 H, Plt Count 259, MPV 9.1, Neut % (Auto) 53.9, Lymph % (Auto) 37.8 H, [place] % (Auto) 4.9, Eos % (Auto) 2.9, Baso % (Auto) 0.5, Lymph # (Auto) 2.5, [place] # (Auto) 0.3, Eos # (Auto) 0.2, Baso # (Auto) 0.03, Absolute Neuts (auto) 3.52 Vital Signs Temp Pulse Pulse Resp BP Pulse Ox 04/11/18 07:59 104 H 149/97 H 04/10/18 16:00 101 H 135/95 H 04/10/18 09:13 74 120/76 04/10/18 07:00 97.8 F 74 20 120/76 04/09/18 16:00 102 H 145/84 04/09/18 08:59 71 117/75 04/09/18 07:24 96.6 F L 71 20 117/75 04/08/18 15:00 88 18 134/84 04/08/18 13:46 96 H 144/86 04/08/18 07:07 97.6 F 72 137/93 H 04/07/18 16:00 100 H 145/98 H 04/07/18 07:11 97.7 F 60 20 130/81 04/06/18 16:00 69 145/92 H 04/06/18 10:25 65 18 04/06/18 09:16 98 04/06/18 09:09 97.8 F 68 18 139/76 98 04/06/18 07:54 78 18 133/75 99 04/06/18 06:02 69 19 121/86 100 04/06/18 04:15 89 17 141/81 100 04/06/18 02:09 82 16 128/75 97 04/05/18 23:00 98.8 F 86 18 124/80 97 Consultations:: List each consultation separately and include: 1. Reason for request. 2. Findings. 3. Follow-up Consultations: Patient was seen by medical team Dr. Camacho. Blood pressure was mildly elevated today, patient also was tachycardic, discussed with Dr. Camacho twice, Cozaar was increased, patient wants to be discharged as soon as possible, patient said that his family is going to pick him up today in order to bring his son's ashes to [place] "he was born there", has patient has capacity to sign himself from the hospital AGAINST MEDICAL ADVICE. Patient said that he is willing to follow up with outpatient primary care as well as psychiatrist, patient is aware of all of his medical condition, patient knows that he needs to take medications as prescribed. Summary of Hospital Course include:: 1. Description of specific treatment plan utilized for patients during their course of treatmen. 2. Summarize the time- course for resolution of acute symptoms and/or regressed behaviors. 3. Describe issues identified and worked on during hospitalization. 4. Describe medication utilized. 5. Describe medical problems identified and treated. 6. Reassessment of suicide risk Summary of Hospital Course: as per evaluation: Patient is a 53 year old single AA male with a history of Bipolar Disorder, alcohol, cocaine, heroin and cannabis use disorder, multiple admissions and detoxes-most recently psychiatrically admitted to [facility] from 11/14/17-11/23/17, re portedly in outpatient psychiatric treatment in [place] and compliant with remeron and seroquel who presented to the [facility] emergency department complaining of depression and suicidal ideation because his 26 yo son, David was shot to in [place] on 03/30/18. UDS was positive for benzos, cocaine and cannabis. BAL = 85. Of note: Patient has history of disrespectful, agitated behavior and admi nistrative discharge in the past, h/o malingering and manipulative behavior. pt was seen by , pt reported feeling depressed and hopeless since his son was killed last week. He is upset that his family is blaming him for this son's . as per staff patient was socializing with others, has good appetite and sleep, but during this director underwriter sales evaluation patient wanted to present more depressed. Patient reported that his son was killed last week, as a result patient became depressed, hopeless, helpless, worthless, relapsed on drugs, patient reported that he does not remember what drugs he used prior to come to the hospital. Please see admission note for more information. Patient was stabilized on the following medications: Seroquel 100 mg twice a day for mood Ativan for possible alcohol withdrawals, Remeron for insomnia and depression. Patient tolerated medications well, no side effects observed or reported, aims 0, no EPS. Today April 11, 2018 patient submitted 48-hour notice, pt wants to be discharged, because his family is going to take pt and drive him to [facility] to burry his son's ashes there "because he was born there". Considering the fact that her blood pressure is elevated and patient is tachycardic this director underwriter sales suggested patient to stay in the hospital, patient said "I promise that they will take my medications, I will follow up with my primary care physician", this director underwriter sales had discussion with the medical team, Dr. Camacho, Dr. Camacho increased blood pressure medications, patient said in case of the worsening of his symptoms him back to the hospital but at present moment he needs to be discharged. Patient deemed having capacity to sign AGAINST MEDICAL ADVICE.Considering the fact that patient always come to the hospital when he does not feel well it seems patient can be possible in regards of the medical/psychiatric problems. Over the weekend patient did not have any patient was compliant with her medications and unit rules and regulations. Overall pt improved significantly, pt was less depressed, has realistic future oriented plans, pt also does not appear to be psychotic, or anxious, pt was socially appropriate, no behavioral issues. At the time of the discharge patient pose no imminent danger to self or others, pt knows providers in community, pt refused to go go rehab facility, pt signed AMA, pt has a capacity to do so. It is a patient responsibility to follow up with outpatient clinic, PMD as well as specialists In case patient will need to obtain results of studies pending at discharge, patient was provided with contact information of Psychiatric Inpatient unit [phone] as well as Medical Record Department [phone], as well as [facility] team [phone]. pt was d/c AMA this director underwriter sales provided pt with prescriptions for his medical and psych problems pt express no interest to be on naltrexone treatment pt was provided with prescriptions for two weeks and one refill for psychotropic meds and one week for medical meds (see medication reconciliation form) Pt was educated about safety plan in case of worsening of symptoms or in case of suicidal or homicidal ideation call 911 or go to the nearest ER, also was educated to take meds as prescribed and stay away from drugs, pt verbalized unde rstanding. - Diagnosis (1) Grief Status: Acute Priority: High (2) Polysubstance abuse Status: Chronic Priority: High - Final Diagnosis (DSM 5) Condition upon Discharge: GOOD Disposition: AGAINST MEDICAL ADVICE Follow-up Treatment Plan: At the time of the discharge patient pose no imminent danger to self or others, pt knows providers in community, pt refused to go go rehab facility, pt signed AMA, pt has a capacity to do so. It is a patient responsibility to follow up with outpatient clinic, PMD as well as specialists In case patient will need to obtain results of studies pending at discharge, patient was provided with contact information of Psychiatric Inpatient unit [phone] as well as Medical Record Department [phone], as well as [facility] team [phone]. pt was d/c ARI this director underwriter sales provided pt with prescriptions for his medical and psych problems pt express no interest to be on naltrexone treatment pt was provided with prescriptions for two weeks and one refill for psychotropic meds and one week for medical meds (see medication reconciliation form) Pt was educated about safety plan in case of worsening of symptoms or in case of suicidal or homicidal ideation call 911 or go to the nearest ER, also was edu cated to take meds as prescribed and stay away from drugs, pt verbalized understanding. Prescriptions/Medication Reconciliation: LORazepam [Ativan] 1 mg PO BID #14 tab Losartan [Cozaar] 100 mg PO DAILY #14 tab Mirtazapine [Remeron] 15 mg PO HS #14 tab QUEtiapine [SEROquel] 100 mg PO AMHS #14 tab - Smoking Cessation Smoking Cessation Medication prescribed: No Reason for not providing: Patient review - Antipsychotic Medications Pt discharged on 2 or more routine antipsychotic medications: No
== END 2018-04-11 15:51 | disposition left against medical advice (07) | DRG 426 ==
LOC: ED 22:15 → ERH 04-06 04:38 → PSYC 04-06 09:25 → ERH 04-06 12:10 → PSYC 04-06 12:12
PROVIDERS: ADMIT Psychiatry & Neurology Psychiatry; ATTEND Psychiatry & Neurology Psychiatry
DX: F43.21 Adjustment disorder with depressed mood (principal); F14.24 Cocaine dependence with cocaine-induced mood disorder; J44.9 Chronic obstructive pulmonary disease, unspecified; F10.10 Alcohol abuse, uncomplicated; F12.10 Cannabis abuse, uncomplicated; F43.10 Post-traumatic stress disorder, unspecified; I11.9 Hypertensive heart disease without heart failure; F17.210 Nicotine dependence, cigarettes, uncomplicated; F20.9 Schizophrenia, unspecified; F31.9 Bipolar disorder, unspecified; L40.9 Psoriasis, unspecified; M89.9 Disorder of bone, unspecified; R45.851 Suicidal ideations; Y90.4 Blood alcohol level of 80-99 mg/100 ml; Z91.14 Patient's other noncompliance with medication regimen

== ENCOUNTER 2018-07-15 01:16 | Inpatient (IN) | payer MEDICAID, OTHER ==
[2018-07-15 01:16] VITALS: BMI 31.1
[2018-07-15 02:04] LABS: ALB/GLOB RATIO 1.3 (1.1-1.8); ALBUMIN 4.2 g/dL (3.0-4.8); ALT/SGPT 21 U/L (7-56); AST/SGOT 37 U/L (17-59); BLOOD UREA NITROGEN 19 mg/dL (7-21); CALCIUM 9.1 mg/dL (8.4-10.5); GFR NON-AFRICAN AMERICAN > 60
[2018-07-15 02:05] LABS: BASO # 0.02 K/mm3 (0.0-2.0); BASO % 0.2 % (0.0-3.0); EOS # 0.1 (0.0-0.7); EOS % 0.8 % (1.5-5.0); HEMOGLOBIN 13.5 g/dL (14.0-18.0); LYMPH # 2.3 (1.2-3.4); MEAN CELL VOLUME 84.3 fl (80.0-105.0); MEAN CORPUSCULAR HGB CONC 34.4 g/dl (31.0-37.0); MEAN PLATELET VOLUME 9.5 fl (7.0-11.0); MONO # 0.4 (0.1-0.6); MONO % 4.4 % (1.0-6.0); RBC 4.65 10^6/uL (3.5-6.1); RED CELL DISTRIBUTION WIDTH 15.1 % (11.5-14.5); WHITE BLOOD COUNT 8.7 10^3/uL (4.5-11.0)
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
[2018-07-15 04:29] LABS: URINE BILIRUBIN NEGATIVE (NEGATIVE); URINE BLOOD NEGATIVE (NEGATIVE); URINE GLUCOSE (UA) NEGATIVE (NEGATIVE); URINE LEUKOCYTE ESTERASE NEGATIVE Leu/uL (NEGATIVE); URINE PROTEIN TRACE mg/dL (<30 mg/dL); URINE UROBILINOGEN 0.2 E.U./dL (<1 E.U./dL)
[2018-07-15 04:36] LABS: URINE APPEARANCE CLEAR (CLEAR); URINE COLOR YELLOW (YELLOW)
[2018-07-15 04:41] LABS: BARBITURATES, UR NEGATIVE (NEGATIVE); BENZODIAZEPINES, UR NEGATIVE (NEGATIVE); OPIATES, UR NEGATIVE (NEGATIVE); PHENCYCLIDINE, UR POSITIVE (NEGATIVE)
[2018-07-15 04:51] LABS: URINE RBC 0 - 2 /hpf (0-2); URINE WBC 0 - 2 /hpf (0-6)
--- NOTE | 2018-07-15 07:05 | ED PDOC ---
Physical Exam Vital Signs Reviewed: Yes Vital Signs Temp Pulse Resp BP Pulse Ox 07/15/18 06:56 73 18 128/71 100 07/15/18 05:38 88 18 147/90 100 07/15/18 03:00 85 18 138/88 100 07/15/18 01:36 98.4 F 73 18 150/95 H 96 Temperature: Afebrile Blood Pressure: Hypertensive Pulse: Regular Respiratory Rate: Normal Appearance: Positive for: Well-Appearing, Non-Toxic, Comfortable Pain Distress: None Mental Status: Positive for: Alert and Oriented X 3 Medical Decision Making ED Course and Treatment: 07/15/18 07:04: Case endorsed to me by Dr. Briceno. Patient presented to the emergency department expressing suicidal ideation. Pending PES evaluation, reassessment, and disposition. 07/15/18 08:35: Dr. Kaiser evaluated patent in the emergency department. Accepts patient for admission to her service for bipolar disorder. - Lab Interpretations Lab Results: APTT 33.7 Seconds (26.9-38.3) 07/15/18 01:45 Total Bilirubin 0.4 mg/dL (0.2-1.3) 07/15/18 01:45 AST 37 U/L (17-59) 07/15/18 01:45 ALT 21 U/L (7-56) 07/15/18 01:45 Alkaline Phosphatase 81 U/L (38-126) 07/15/18 01:45 Total Protein 7.5 g/dL (5.8-8.3) 07/15/18 01:45 Albumin 4.2 g/dL (3.0-4.8) 07/15/18 01:45 Globulin 3.3 gm/dL 07/15/18 01:45 Albumin/Globulin Ratio 1.3 (1.1-1.8) 07/15/18 01:45 Urine Color Yellow (YELLOW) 07/15/18 04:00 Urine Appearance Clear (CLEAR) 07/15/18 04:00 Urine pH 6.0 (4.7-8.0) 07/15/18 04:00 Ur Specific Henderson >= 1.030 (1.005-1.035) 07/15/18 04:00 Urine Protein Trace mg/dL (<30 mg/dL) H 07/15/18 04:00 Urine Glucose (UA) Negative mg/dL (NEGATIVE) 07/15/18 04:00 Urine Ketones Trace mg/dL (NEGATIVE) H 07/15/18 04:00 Urine Blood Negative (NEGATIVE) 07/15/18 04:00 Urine Nitrate Negative (NEGATIVE) 07/15/18 04:00 Urine Bilirubin Negative (NEGATIVE) 07/15/18 04:00 Urine Urobilinogen 0.2 E.U./dL (<1 E.U./dL) 07/15/18 04:00 Ur Leukocyte Esterase Negative Jaycob/uL (NEGATIVE) 07/15/18 04:00 Urine RBC 0 - 2 /hpf (0-2) 07/15/18 04:00 Urine WBC 0 - 2 /hpf (0-6) 07/15/18 04:00 Ur Epithelial Cells 1 - 3 /hpf (0-5) 07/15/18 04:00 Urine Bacteria None /hpf (NONE) 07/15/18 04:00 Urine Other Mucus /hpf 07/15/18 04:00 - Scribe Statement The provider has reviewed the documentation as recorded by the Talat Molina Provider Scribe Attestation: All medical record entries made by the Scribe were at my direction and personally dictated by me. I have reviewed the chart and agree that the record accurately reflects my personal performance of the history, physical exam, medical decision making, and the department course for this patient. I have also personally directed, reviewed, and agree with the discharge instructions and disposition. Disposition/Present on Arrival - Present on Arrival Any Indicators Present on Arrival: No History of DVT/PE: No History of Uncontrolled Diabetes: No Urinary Catheter: No History of Decub. Ulcer: No History Surgical Site Infection Following: None - Disposition Have Diagnosis and Disposition been Completed?: Yes Diagnosis: Bipolar disorder Disposition: HOSPITALIZED Disposition Time: 08:34 Patient Plan: Admission Patient Problems: Current Active Problems Problem Status Onset Suicidal ideation Acute Condition: STABLE
--- NOTE | 2018-07-15 09:34 | CARD ---
APPROVED REPORT Date of service: 07/15/2018 EKG Measurement Heart [id number] <Conclusion> Normal sinus rhythm Possible Left atrial enlargement Left ventricular hypertrophy T wave abnormality, consider inferolateral ischemia Abnormal ECG
[2018-07-15 09:56] VITALS: O2SAT 98
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
--- NOTE | 2018-07-15 14:17 | PCM.BM ---
Treatment Plan Problems - Problems identified on initial assessmt INEFFECTIVE COPING Date Initiated: 07/15/18 Time Initiated: 20:00 Assessment reference: NA Status: Active Priority: 1 SUICIDAL IDEATION Date Initiated: 07/15/18 Time Initiated: 20:00 Assessment reference: NA Status: Active Priority: 2 HELPLESSNESS/HOPELESSNESS Date Initiated: 07/15/18 Time Initiated: 20:00 Assessment reference: NA Status: Active Priority: 3 Treatment assets and liabiliti Patient Assests: adapts well, cooperative, motivated, self-reliant, ADL independent, physically healthy, negotiates basic needs, cognitively intact, good interpersonal skills
--- NOTE | 2018-07-15 14:39 | PCM.BM ---
<Constanza Antunez - Last Filed: 07/15/18 14:36> Treatment Plan Problems - Problems identified on initial assessmt INEFFECTIVE COPING Date Initiated: 07/15/18 Time Initiated: 13:00 Assessment reference: NA Status: Active Priority: 1 SUICIDAL IDEATION Date Initiated: 07/15/18 Time Initiated: 13:00 Assessment reference: NA Status: Active Priority: 2 HELPLESSNESS/HOPELESSNESS Date Initiated: 07/15/18 Time Initiated: 13:00 Assessment reference: NA Status: Active Priority: 3 MEDICATION VIVIENNE ADHERENCE Date Initiated: 07/15/18 Time Initiated: 13:00 Status: Active Priority: 4 Treatment assets and liabiliti Patient Assests: ADL independent, negotiates basic needs, cognitively intact Patient Liabilities: live alone, financial problems, poor support system, medical problems - Milieu Protocol Maintain good personal hygiene: every other day Encourage regular showers, every shift Remind patient to perform daily oral care, every shift Assist patient to perform ADL's Maintain personal safety: every shift Educate patient to report safety concerns to staff, every shift Monitor environment for contraband/sharps Medication safety: Monitor for expected outcome, potential side effects: every shift, Assess barriers to learning: every shift, Assess readiness for medication education: every shift Family Contact Family involvement: Family/SO is involved Family contact: Patient agrees to contact, Patient declines to allow family contact at present Discharge/Continuing Care - Education Needs Education Needs: Patient Medication, Patient Diagnosis/Disease Process, Patient Coping Skills, Patient Anger Management skills, Patient Placement options, Patient Activities of Daily Living, Patient Uses of Medical Equipment, Patient Personal Hygiene/Grooming, Patient Aftercare Safety Plan - Discharge Discharge Criteria: Tolerates medication w/o severe side effects, Free of Suicidal thoughts, Free of agitation, Ability to care for self <Obie Arriola - Last Filed: 07/16/18 11:26> - Diagnosis (1) Bipolar disorder Status: Acute Interventions: * group, milieu and supportive tx * consultation for discharge plan and social issues * Seroquel 50 mg po AM and 100 mg HS for mood control * Remeron 15 mg po HS for depression * Ativan 1 mg po q6 for alcohol withdrawal/anxiety, taper as tolerated {patient has minimized his alcohol and drug use in the past, BAL was 97 at admission * Consider naltrexone to help with abstinence however patient has been resistant to address his substance abuse in the past. 07/16/18 11:29 (2) Depression Status: Acute Interventions: 07/16/18 11:30 * group, milieu and supportive tx * SW consultation for discharge plan and social issues * Seroquel 50 mg po AM and 100 mg HS for mood control * Remeron 15 mg po HS for depression * Ativan 1 mg po q6 for alcohol withdrawal/anxiety, taper as tolerated {patient has minimized his alcohol and drug use in the past, BAL was 97 at admission * Consider naltrexone to help with abstinence however patient has been resistant to address his substance abuse in the past. (3) Drug dependence Status: Acute Interventions: 07/16/18 11:30 * group, milieu and supportive tx * SW consultation for discharge plan and social issues * Seroquel 50 mg po AM and 100 mg HS for mood control * Remeron 15 mg po HS for depression * Ativan 1 mg po q6 for alcohol withdrawal/anxiety, taper as tolerated {patient has minimized his alcohol and drug use in the past, BAL was 97 at admission * Consider naltrexone to help with abstinence however patient has been resistant to address his substance abuse in the past. (4) Substance induced mood disorder Status: Acute Interventions: 07/16/18 11:30 * group, milieu and supportive tx * SW consultation for discharge plan and social issues * Seroquel 50 mg po AM and 100 mg HS for mood control * Remeron 15 mg po HS for depression * Ativan 1 mg po q6 for alcohol withdrawal/anxiety, taper as tolerated {patient has minimized his alcohol and drug use in the past, BAL was 97 at admission * Consider naltrexone to help with abstinence however patient has been resistant to address his substance abuse in the past. <Monique Beatty - Last Filed: 07/18/18 11:55> Family Contact Family involvement: Famliy/SO not involved <Olinda Montesinos - Last Filed: 07/18/18 12:12>
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
[2018-07-16 08:29] LABS: GLUCOSE,FASTING 102 mg/dL (65-110); HDL CHOLESTEROL 73 mg/dL (29-60)
[2018-07-16 08:39] LABS: LDL CHOLESTEROL 98 mg/dL (0-129)
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
--- NOTE | 2018-07-16 14:34 | PN ---
DATE: 07/16/2018 SUBJECTIVE: He is resting comfortably in bed, actually in the psychiatric floor. He has had no complaints. He is in good spirits. MEDICATIONS: He is on Ativan, Cozaar, Geodon, Neurontin, Remeron, Seroquel and Vistaril. PHYSICAL EXAMINATION: GENERAL: He is eating well, going to the bathroom well. He is walking well. VITAL SIGNS: Temperature 98.4, 73 pulse, blood pressure is 140/80, 18 respiratory rate, 98% O2 sat on room air. He had suicidal thoughts hypertension, COPD history. LABORATORY DATA: He had 8.7 white count yesterday, 13.5 hemoglobin and 223 platelets. Sodium 141, potassium 3.7, BUN 19, creatinine 1.1, GFR is greater than 60. Sugar is 81, calcium is 9.1, total bili is 0.4. AST is 37, ALT is 21, alk phos 81 yesterday. TSH is 0.26, I have repeated TSH. He is being seen by Psychiatry, continue with aggressive treatment and care. We will follow. Narinder Camacho DO
--- NOTE | 2018-07-17 00:39 | CON ---
CARDIOLOGY CONSULTATION DATE OF CONSULTATION: 07/16/2018 REASON FOR CONSULTATION: Chest pain. HISTORY OF PRESENT ILLNESS: The patient is a 53-year-old male who is a smoker and cocaine abuser, has a history of depression, presented for suicidal ideation and attempts. The patient also reported chest discomfort. The patient underwent cardiac catheterization by Dr. Anton Ku in 02/2018, i.e. 4 months ago, which revealed normal coronaries and normal left ventricular systolic function. The patient did test positive for cocaine, cannabinoids, phencyclidine, and alcohol during this admission as well as previous admissions. SOCIAL HISTORY: The patient is a smoker and cocaine abuser. MEDICATIONS: Ativan 2 mg p.o. every 6 hours, Cozaar 100 mg once a day, Geodon 20 mg p.o. every 6 hours, Neurontin 300 mg t.i.d., Seroquel 100 mg at bedtime, and Vistaril 50 mg every 8 hours p.r.n. for anxiety. PHYSICAL EXAMINATION: GENERAL: The patient is a middle-aged male who does not appear to be in any distress. VITAL SIGNS: Blood pressure 140/80, heart rate 88, temperature 98.4, and respirations 20. HEENT: Normocephalic. CHEST: Clear. HEART: S1 and S2 regular. ABDOMEN: Soft. EXTREMITIES: No edema. LABORATORY DATA: Admitting SMA-7 is entirely within normal limits. Lipid profile is within normal limits except for HDL cholesterol of 73. Hemoglobin and hematocrit 13.5 and 39.2, white count and platelet count are within normal limits. Admitting urine alcohol level is 97. Urine drug screen is positive for phencyclidine, cocaine, and cannabinoids. EKG revealed sinus rhythm, consider lateral ischemic T-wave changes, possible left atrial enlargement. ASSESSMENT: 1. Cocaine abuse and chest pain. The patient is known to have unremarkable on recent cardiac catheterization in 02/2018. 2. Hypertension. RECOMMENDATIONS: Continue Cozaar at 100 mg once a day. Start aspirin 81 mg once a day and Imdur 60 mg once a day. The patient was strongly advised to abstain from future cocaine abuse. Beta-yanni will not be a suitable choice for the patient in view of recent cocaine abuse. Kyle Mayers MD
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
[2018-07-17] MEDS ORDERED: Alum-Mag Hydrox-Simethicone Susp (30 mL) PO PRN (13:41)
--- NOTE | 2018-07-17 19:12 | PN ---
DATE: 07/17/2018 SUBJECTIVE: I am quite concerned about him. I saw him in bed this morning. He still on examination is very depressed when we talk. He is not doing well. He is very preoccupied, having nightmares. He is on aspirin, Ativan, Cozaar, Geodon, Imdur, Maalox, milk of magnesia, Neurontin, Remeron, Seroquel, Tylenol, and Vistaril. PHYSICAL EXAMINATION VITAL SIGNS: He has a 98 temperature, 78 pulse, 120/78 blood pressure, and 20 respiratory rate. HEENT: Atraumatic and normocephalic. HEART: Regular rate. LUNGS: Clear to auscultation. ABDOMEN: Soft. EXTREMITIES: No edema. LABORATORY DATA: He has a 8.7 white count, 13.5 hemoglobin, and 223 platelets. His SMA-20 was good. Blood sugar is 102. TSH is now normal at 0.66. He was positive for phencyclidine, cocaine, carcinoids and alcohol. PLAN: I am not sure he is over this feeling of hurting himself. I do think he is still needs to be in on the Psychiatric floor. I am concerned about him. He is telling me he is quite depressed, possibly even still suicidal. I will ask for Psychiatry. We will watch him medically; continue with aggressive treatment and care and make sure if it is him who is depressed and probably still suicidal. Narinder Camacho DO
--- NOTE | 2018-07-18 12:38 | PN ---
DATE: 07/18/2018 SUBJECTIVE: I saw him this morning. He slept okay, not great. He tells me he is still suicidal. He is also having some pain. He is on aspirin, Ativan, Cozaar, Geodon, Imdur, Maalox, milk of magnesia, Neurontin, Remeron, Seroquel, Tylenol, and Zestril. Since the Tylenol is not cutting his problem, I will put him on Motrin 600. He is also still with the suicidal thoughts in his head. I cannot get this situation out of his head about what happened to him. It is very traumatic when he tells me. He is not doing well mentally. PHYSICAL EXAMINATION: VITAL SIGNS: He had 97.6 temperature, 74 pulse, 124/84 blood pressure, 19 respiratory rate. HEENT: His head is atraumatic, normocephalic. HEART: Regular rate. LUNGS: Decreased breath sounds, but clear. ABDOMEN: Soft, obese. EXTREMITIES: No edema. ASSESSMENT AND PLAN: He wants to feels better. He just cannot there yet. As per psychiatry, hopefully the medicines will improve. His prostate-specific antigen should go back to normal at 0.66. Hoping his trauma, we will lift a little bit. I will put him on some Motrin for his pain 200 mg and we will continue with aggressive treatment and care mentally on Philipp Acevedo, who is still suicidal and depressed and now is back. Narinder Camacho DO
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
[2018-07-18] MEDS: Magnesium Hydroxide Susp 30 ml UD PO PRN (20:53)
--- NOTE | 2018-07-19 12:29 | PN ---
DATE: 07/19/2018 SUBJECTIVE: I saw him in the psychiatric floor. It is the first day that I actually saw him, possibly even feeling better mentally. He has a plan. He feels like he is improving a little bit. The depression and anxiety is lifting a little bit. He wants to stay until Wednesday and go straight from the hospital to work, avoid home. He wants to concentrate on his work and get out of the situation he is in with the family issues. He is on aspirin, Ativan, Cozaar, Geodon, Imdur. He is having a headache. The Motrin 600 helped a little bit. I bumped him up to Motrin 800. He did not want Fioricet or any kind of narcotic. He is on Neurontin, Remeron, Seroquel, Tylenol and hydroxyzine. PHYSICAL EXAMINATION: VITAL SIGNS: He has a 98 temp, 74 pulse, 138/90 blood pressure, 20 respiratory rate. Blood pressure is a little bit borderline. He is on 100 mg of Cozaar. We will keep an eye on that. HEENT: Head is atraumatic, normocephalic. HEART: Regular rate. LUNGS: Decreased breath sounds, but clear. ABDOMEN: Soft. EXTREMITIES: No edema. ASSESSMENT AND PLAN: He is doing better mentally. He is starting to improve. The depression and anxiety is starting to lift. He is starting to make a plan for the rest of his life under the situation he is in. I increased his ibuprofen to 800 mg every 6 hours for his headaches as needed. He knows to take it with food. Hopefully, that will help. He did not want any other kind of pain meds. Hoping, he will continue to improve. Narinder Camacho DO
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
[2018-07-20 07:47] LABS: HEMOGLOBIN 12.6 g/dL (14.0-18.0); MEAN CELL VOLUME 85.7 fl (80.0-105.0); MEAN CORPUSCULAR HEMOGLOBIN 28.6 pg (25.0-35.0); MEAN CORPUSCULAR HGB CONC 33.3 g/dl (31.0-37.0); MEAN PLATELET VOLUME 9.5 fl (7.0-11.0); RBC 4.41 10^6/uL (3.5-6.1); RED CELL DISTRIBUTION WIDTH 15.6 % (11.5-14.5); WHITE BLOOD COUNT 5.5 10^3/uL (4.5-11.0)
[2018-07-20 08:22] LABS: ALB/GLOB RATIO 1.3 (1.1-1.8); ALBUMIN 3.3 g/dL (3.0-4.8); ALT/SGPT 46 U/L (7-56); AST/SGOT 36 U/L (17-59); BLOOD UREA NITROGEN 14 mg/dL (7-21); CALCIUM 8.9 mg/dL (8.4-10.5); GFR NON-AFRICAN AMERICAN > 60
[2018-07-20] MEDS: Magnesium Hydroxide Susp 30 ml UD PO PRN (09:35)
--- NOTE | 2018-07-20 13:07 | PN ---
DATE: 07/20/2018 SUBJECTIVE: I saw him this morning. He is definitely improving with his depression. He is he is feeling a lot better. He smiled at me today. He tells me he is got a plan. He wants to stay until Wednesday morning and go straight from here to work. He is going to avoid his situation at home and then move out. MEDICATIONS: He is on aspirin, Ativan, Cozaar, Geodon, Imdur, Maalox, milk of magnesia, Motrin, Neurontin, Remeron, Seroquel, Tylenol, and Vistaril. Mentally he is definitely improving. PHYSICAL EXAMINATION: VITAL SIGNS: A 97.9 temp, blood pressure has been as low as 125/82 and as high as 164/117 and 20 respiratory rate. HEENT: Head is atraumatic and normocephalic. HEART: Regular rate. LUNGS: Decreased breath sounds, but clear. ABDOMEN: Soft and obese. EXTREMITIES: No edema. MEDICATIONS: He is on aspirin, Ativan, Cozaar 100, Geodon, Imdur, Motrin, Neurontin, Tylenol. I am going to add amlodipine 2.5 to his blood pressure list because his blood pressure has been creeping up. LABORATORY DATA: He has a 5.5 white count today, 12.6 hemoglobin, 37.8 hematocrit with a 226 platelets. He has a sodium 141, potassium is 4, BUN is 14, creatinine 0.9, GFR is greater than 60, sugar is 122, calcium is 8.9, total bili is 0.2, AST is 36, ALT is 46, alk phos 73 and total protein is 5.9. He was positive for Phencyclidine, cocaine, marijuana and alcohol also. if he wants to maintain the job, he understands that, but I will add amlodipine to his blood pressure. The patient has been admitted with depression, anxiety, and drug abuse. Narinder Camacho DO [facility]
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
--- NOTE | 2018-07-21 13:09 | PN ---
DATE: 07/21/2018 SUBJECTIVE: I saw him in the psychiatric floor. He is actually doing much better than when he came in. He had a very bad situation before he came to the hospital. I do think he is starting to improve. He has a plan to be leaving on Wednesday morning and go straight to work and get out the situation he is in at home. MEDICATIONS: He is on aspirin, Ativan, Cozaar, Geodon, Imdur, Maalox, milk of magnesia, Motrin, Neurontin, Norvasc, Remeron, Seroquel, Tylenol, and Vistaril. I do believe psychiatric care really helped him to stay in the hospital. He is much, much better. PHYSICAL EXAMINATION: VITAL SIGNS: Temperature 98.1, 66 pulse, , 139/79 blood pressure, 20 respiratory rate. HEENT: Head is atraumatic and normocephalic. HEART: Regular rate. LUNGS: Decreased breath sounds, but clear. ABDOMEN: Soft and obese. EXTREMITIES: No edema. LABORATORY DATA: From the ; he has a 5.5 white count, 12.6 hemoglobin, 37.8 hematocrit with 226 platelets. He has 141 sodium, potassium 4, BUN 14, creatinine 0.9, GFR is greater than 60, sugar is 122, calcium is 8.9, total bili is 0.2, AST is 36, ALT is 46, alk phos 73, and total protein is 5.9. TSH is 0.66. ASSESSMENT AND PLAN: He understands not to do cocaine, marijuana or alcohol anymore. Not worth it under any situation, he agrees and hopefully on Wednesday. I encouraged him to participate, take his medications, eat the food, and hopefully he will continue to be happy and improving. Narinder Camacho DO [facility]
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
--- NOTE | 2018-07-22 13:01 | PN ---
DATE: 07/22/2018 SUBJECTIVE: I saw him in his room in the psychiatric floor. He is doing well. He is smiling. He is eating better. He is in better spirits. He has got a plan to when he leaves. MEDICATIONS: He is on aspirin, Ativan, Cozaar, Geodon, Imdur, Maalox, milk of magnesia, Motrin, Neurontin, Remeron, Seroquel, Tylenol, and Vistaril. PHYSICAL EXAMINATION: VITAL SIGNS: He has a 98.1 temp, 66 pulse, 142/97 blood pressure, 20 respiratory rate. We will adjust his blood pressure mediations. HEENT: Head is atraumatic, normocephalic. HEART: Regular rate. LUNGS: Decreased breath sounds. ABDOMEN: Soft and obese. EXTREMITIES: No edema. Labs on the 07/20/2018, he did well. He is currently on Cozaar 100 mg, amlodipine 2.5 mg, we will increase the amlodipine to 5 mg because his blood pressure is high. I will increase it as we needed and I understand the plan will be to discharge on Wednesday. I will continue aggressive treatment and care and for acute depression. Narinder Camacho DO [facility]
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
--- NOTE | 2018-07-23 12:07 | PN ---
DATE: 07/23/2018 SUBJECTIVE: He is resting comfortable in his room in the psychiatric floor. He is in better spirits still. He is taking his medications. He is participating. He has a plan to be discharged on Wednesday. He has got a lot of issues but he is definitely getting through them. He is on aspirin, Ativan, Cozaar, Geodon, Imdur, Maalox, milk of magnesia, Motrin, Neurontin, Norvasc, Remeron, Seroquel, Tylenol, and Vistaril. PHYSICAL EXAMINATION: VITAL SIGNS: He has 97.7 temperature and 96 pulse. Blood pressure is miguel high and so we will address his blood pressure, 193/110 and 17 respiratory rate. HEENT: Head is atraumatic and normocephalic. HEART: Regular rate. LUNGS: Clear to auscultation. ABDOMEN: Soft and obese. EXTREMITIES: No edema. ASSESSMENT AND PLAN: Overall, he has got a lot of major depression, hopefully it will improve. I will adjust his blood pressure pills and we will follow. Narinder Camacho DO
[2018-07-24 07:08] VITALS: RESP 20
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
[2018-07-25 07:10] VITALS: BP 141/89; PULSE 108; TEMP 97.9
--- NOTE | 2018-07-25 07:10 | PCM.BM ---
Treatment Plan Problems - Problems identified on initial assessmt INEFFECTIVE COPING Date Initiated: 07/15/18 Time Initiated: 13:00 Assessment reference: NA Status: Active Priority: 1 SUICIDAL IDEATION Date Initiated: 07/15/18 Time Initiated: 13:00 Assessment reference: NA Status: Active Priority: 2 HELPLESSNESS/HOPELESSNESS Date Initiated: 07/15/18 Time Initiated: 13:00 Assessment reference: NA Status: Active Priority: 3 MEDICATION VIVIENNE ADHERENCE Date Initiated: 07/15/18 Time Initiated: 13:00 Status: Active Priority: 4 Treatment assets and liabiliti Patient Assests: ADL independent, negotiates basic needs, cognitively intact Patient Liabilities: live alone, financial problems, poor support system, medical problems - Milieu Protocol Maintain good personal hygiene: every other day Encourage regular showers, every shift Remind patient to perform daily oral care, every shift Assist patient to perform ADL's Maintain personal safety: every shift Educate patient to report safety concerns to staff, every shift Monitor environment for contraband/sharps Medication safety: Monitor for expected outcome, potential side effects: every shift, Assess barriers to learning: every shift, Assess readiness for medication education: every shift Milieu Narrative: * c/w current tx and plan * Appreciate f/u by Dr. Camacho on 07/23/18~plan to adjust antihypertensives due to high blood pressures noted on the unit {see below} * Vitals reviewed and noted below: 07/24/18 07:07 Temperature 98.0 F Pulse Rate 91 H Respiratory 20 Rate Blood Pressure 153/104 H 07/23/18 07/23/18 07/23/18 07:00 08:55 15:56 Temperature 97.7 F Pulse Rate 96 H 103 H 121 H Respiratory 17 Rate Blood Pressure 143/99 H 193/110 H 163/72 H 07/23/18 22:01 Temperature Pulse Rate 97 H Respiratory 18 Rate Blood Pressure 150/108 H * No new weekend lab results noted ADMISSION LABS NOTED BELOW Laboratory Results - last 24 hr 07/16/18 07/17/18 07:00 08:30 TSH 3rd Generation 0.66 RPR Nonreactive Laboratory Tests 07/15/18 07/15/18 07/15/18 01:45 01:45 01:45 WBC 8.7 D RBC 4.65 Hgb 13.5 L Hct 39.2 L MCV 84.3 MCH 29.0 MCHC 34.4 RDW 15.1 H Plt Count 223 MPV 9.5 Neut % (Auto) 68.6 H Lymph % (Auto) 26.0 [place] % (Auto) 4.4 Eos % (Auto) 0.8 L Baso % (Auto) 0.2 Lymph # (Auto) 2.3 [place] # (Auto) 0.4 Eos # (Auto) 0.1 Baso # (Auto) 0.02 Absolute Neuts (auto) 5.93 APTT 33.7 Sodium 141 Potassium 3.7 Chloride 107 Carbon Dioxide 25 Anion Gap 13 BUN 19 Creatinine 1.1 Est GFR ( Amer) > 60 Est GFR (Non-Af Amer) > 60 Random Glucose 81 Fasting Glucose Calcium 9.1 Total Bilirubin 0.4 AST 37 ALT 21 Alkaline Phosphatase 81 Total Protein 7.5 Albumin 4.2 Globulin 3.3 Albumin/Globulin Ratio 1.3 Triglycerides Cholesterol LDL Cholesterol Direct HDL Cholesterol TSH 3rd Generation Urine Color Urine Appearance Urine pH Ur Specific [place] Urine Protein Urine Glucose (UA) Urine Ketones Urine Blood Urine Nitrate Urine Bilirubin Urine Urobilinogen Ur Leukocyte Esterase Urine RBC Urine WBC Ur Epithelial Cells Urine Bacteria Urine Other Urine Opiates Screen Urine Methadone Screen Ur Barbiturates Screen Ur Phencyclidine Scrn Ur Amphetamines Screen U Benzodiazepines Scrn U Oth Cocaine Metabols U Cannabinoids Screen Alcohol, Quantitative 07/15/18 07/15/18 07/15/18 01:45 04:00 04:00 WBC RBC Hgb Hct MCV MCH MCHC RDW Plt Count MPV Neut % (Auto) Lymph % (Auto) [place] % (Auto) Eos % (Auto) Baso % (Auto) Lymph # (Auto) [place] # (Auto) Eos # (Auto) Baso # (Auto) Absolute Neuts (auto) APTT Sodium Potassium Chloride Carbon Dioxide Anion Gap BUN Creatinine Est GFR ( Amer) Est GFR (Non-Af Amer) Random Glucose Fasting Glucose Calcium Total Bilirubin AST ALT Alkaline Phosphatase Total Protein Albumin Globulin Albumin/Globulin Ratio Triglycerides Cholesterol LDL Cholesterol Direct HDL Cholesterol TSH 3rd Generation Urine Color Yellow Urine Appearance Clear Urine pH 6.0 Ur Specific [place] >= 1.030 Urine Protein Trace H Urine Glucose (UA) Negative Urine Ketones Trace H Urine Blood Negative Urine Nitrate Negative Urine Bilirubin Negative Urine Urobilinogen 0.2 Ur Leukocyte Esterase Negative Urine RBC 0 - 2 Urine WBC 0 - 2 Ur Epithelial Cells 1 - 3 Urine Bacteria None Urine Other Mucus Urine Opiates Screen Negative Urine Methadone Screen Negative Ur Barbiturates Screen Negative Ur Phencyclidine Scrn Positive H Ur Amphetamines Screen Negative U Benzodiazepines Scrn Negative U Oth Cocaine Metabols Positive H U Cannabinoids Screen Positive H Alcohol, Quantitative 97 H 07/16/18 07/16/18 07:00 07:00 WBC RBC Hgb Hct MCV MCH MCHC RDW Plt Count MPV Neut % (Auto) Lymph % (Auto) [place] % (Auto) Eos % (Auto) Baso % (Auto) Lymph # (Auto) [place] # (Auto) Eos # (Auto) Baso # (Auto) Absolute Neuts (auto) APTT Sodium Potassium Chloride Carbon Dioxide Anion Gap BUN Creatinine Est GFR ( Amer) Est GFR (Non-Af Amer) Random Glucose Fasting Glucose 102 Calcium Total Bilirubin AST ALT Alkaline Phosphatase Total Protein Albumin Globulin Albumin/Globulin Ratio Triglycerides 102 Cholesterol 194 LDL Cholesterol Direct 98 HDL Cholesterol 73 H TSH 3rd Generation 0.26 L Urine Color Urine Appearance Urine pH Ur Specific [place] Urine Protein Urine Glucose (UA) Urine Ketones Urine Blood Urine Nitrate Urine Bilirubin Urine Urobilinogen Ur Leukocyte Esterase Urine RBC Urine WBC Ur Epithelial Cells Urine Bacteria Urine Other Urine Opiates Screen Urine Methadone Screen Ur Barbiturates Screen Ur Phencyclidine Scrn Ur Amphetamines Screen U Benzodiazepines Scrn U Oth Cocaine Metabols U Cannabinoids Screen Alcohol, Quantitative Family Contact Family involvement: Famliy/SO not involved Discharge/Continuing Care - Education Needs Education Needs: Patient Medication, Patient Diagnosis/Disease Process, Patient Coping Skills, Patient Anger Management skills, Patient Placement options, Patient Activities of Daily Living, Patient Uses of Medical Equipment, Patient Personal Hygiene/Grooming, Patient Aftercare Safety Plan - Discharge Discharge Criteria: Tolerates medication w/o severe side effects, Free of Suicidal thoughts, Free of agitation, Ability to care for self - Treatment Team Participation Patient/Family/SO Statement: * c/w current tx and plan * Appreciate f/u by Dr. Camacho on 07/23/18~plan to adjust antihypertensives due to high blood pressures noted on the unit {see below} * Vitals reviewed and noted below: 07/24/18 07:07 Temperature 98.0 F Pulse Rate 91 H Respiratory 20 Rate Blood Pressure 153/104 H 07/23/18 07/23/18 07/23/18 07:00 08:55 15:56 Temperature 97.7 F Pulse Rate 96 H 103 H 121 H Respiratory 17 Rate Blood Pressure 143/99 H 193/110 H 163/72 H 07/23/18 22:01 Temperature Pulse Rate 97 H Respiratory 18 Rate Blood Pressure 150/108 H * No new weekend lab results noted ADMISSION LABS NOTED BELOW Laboratory Results - last 24 hr 07/16/18 07/17/18 07:00 08:30 TSH 3rd Generation 0.66 RPR Nonreactive Laboratory Tests 07/15/18 07/15/18 07/15/18 01:45 01:45 01:45 WBC 8.7 D RBC 4.65 Hgb 13.5 L Hct 39.2 L MCV 84.3 MCH 29.0 MCHC 34.4 RDW 15.1 H Plt Count 223 MPV 9.5 Neut % (Auto) 68.6 H Lymph % (Auto) 26.0 [place] % (Auto) 4.4 Eos % (Auto) 0.8 L Baso % (Auto) 0.2 Lymph # (Auto) 2.3 [place] # (Auto) 0.4 Eos # (Auto) 0.1 Baso # (Auto) 0.02 Absolute Neuts (auto) 5.93 APTT 33.7 Sodium 141 Potassium 3.7 Chloride 107 Carbon Dioxide 25 Anion Gap 13 BUN 19 Creatinine 1.1 Est GFR ( Amer) > 60 Est GFR (Non-Af Amer) > 60 Random Glucose 81 Fasting Glucose Calcium 9.1 Total Bilirubin 0.4 AST 37 ALT 21 Alkaline Phosphatase 81 Total Protein 7.5 Albumin 4.2 Globulin 3.3 Albumin/Globulin Ratio 1.3 Triglycerides Cholesterol LDL Cholesterol Direct HDL Cholesterol TSH 3rd Generation Urine Color Urine Appearance Urine pH Ur Specific [place] Urine Protein Urine Glucose (UA) Urine Ketones Urine Blood Urine Nitrate Urine Bilirubin Urine Urobilinogen Ur Leukocyte Esterase Urine RBC Urine WBC Ur Epithelial Cells Urine Bacteria Urine Other Urine Opiates Screen Urine Methadone Screen Ur Barbiturates Screen Ur Phencyclidine Scrn Ur Amphetamines Screen U Benzodiazepines Scrn U Oth Cocaine Metabols U Cannabinoids Screen Alcohol, Quantitative 07/15/18 07/15/18 07/15/18 01:45 04:00 04:00 WBC RBC Hgb Hct MCV MCH MCHC RDW Plt Count MPV Neut % (Auto) Lymph % (Auto) [place] % (Auto) Eos % (Auto) Baso % (Auto) Lymph # (Auto) [place] # (Auto) Eos # (Auto) Baso # (Auto) Absolute Neuts (auto) APTT Sodium Potassium Chloride Carbon Dioxide Anion Gap BUN Creatinine Est GFR ( Amer) Est GFR (Non-Af Amer) Random Glucose Fasting Glucose Calcium Total Bilirubin AST ALT Alkaline Phosphatase Total Protein Albumin Globulin Albumin/Globulin Ratio Triglycerides Cholesterol LDL Cholesterol Direct HDL Cholesterol TSH 3rd Generation Urine Color Yellow Urine Appearance Clear Urine pH 6.0 Ur Specific [place] >= 1.030 Urine Protein Trace H Urine Glucose (UA) Negative Urine Ketones Trace H Urine Blood Negative Urine Nitrate Negative Urine Bilirubin Negative Urine Urobilinogen 0.2 Ur Leukocyte Esterase Negative Urine RBC 0 - 2 Urine WBC 0 - 2 Ur Epithelial Cells 1 - 3 Urine Bacteria None Urine Other Mucus Urine Opiates Screen Negative Urine Methadone Screen Negative Ur Barbiturates Screen Negative Ur Phencyclidine Scrn Positive H Ur Amphetamines Screen Negative U Benzodiazepines Scrn Negative U Oth Cocaine Metabols Positive H U Cannabinoids Screen Positive H Alcohol, Quantitative 97 H 07/16/18 07/16/18 07:00 07:00 WBC RBC Hgb Hct MCV MCH MCHC RDW Plt Count MPV Neut % (Auto) Lymph % (Auto) [place] % (Auto) Eos % (Auto) Baso % (Auto) Lymph # (Auto) [place] # (Auto) Eos # (Auto) Baso # (Auto) Absolute Neuts (auto) APTT Sodium Potassium Chloride Carbon Dioxide Anion Gap BUN Creatinine Est GFR ( Amer) Est GFR (Non-Af Amer) Random Glucose Fasting Glucose 102 Calcium Total Bilirubin AST ALT Alkaline Phosphatase Total Protein Albumin Globulin Albumin/Globulin Ratio Triglycerides 102 Cholesterol 194 LDL Cholesterol Direct 98 HDL Cholesterol 73 H TSH 3rd Generation 0.26 L Urine Color Urine Appearance Urine pH Ur Specific [place] Urine Protein Urine Glucose (UA) Urine Ketones Urine Blood Urine Nitrate Urine Bilirubin Urine Urobilinogen Ur Leukocyte Esterase Urine RBC Urine WBC Ur Epithelial Cells Urine Bacteria Urine Other Urine Opiates Screen Urine Methadone Screen Ur Barbiturates Screen Ur Phencyclidine Scrn Ur Amphetamines Screen U Benzodiazepines Scrn U Oth Cocaine Metabols U Cannabinoids Screen Alcohol, Quantitative
--- NOTE | 2018-07-25 08:50 | PN ---
DATE: 07/24/2018 SUBJECTIVE: I saw the patient resting in bed in the Psychiatric floor. He tells me he is doing well, he is eating well, going to the bathroom well. He is participating with the psychiatric groups, medications he is taking it well. He is feeling a lot better, he tells me. He also tells me he is leaving tomorrow the unit work straight from the hospital. Otherwise, he is on aspirin, Ativan, Cozaar, Geodon, Imdur, MiraLax, milk of magnesia, Motrin, Neurontin, Norvasc, Remeron, Seroquel, Tylenol, Vistaril. He still has got anxiety and depression. He had drug abuse. Very depressed when he came in. PHYSICAL EXAMINATION: VITAL SIGNS: He has a 98 temperature, 91 pulse, 153/104 blood pressure, I will adjust his blood pressure medication once again, 20 respiratory rate. HEENT: Head is atraumatic and normocephalic. HEART: Regular rate. LUNGS: Clear to auscultation. ABDOMEN: Soft, obese. EXTREMITIES: No edema. Even though I have been increasing the Norvasc, his blood pressure is rising with it. LABORATORY DATA: His labs on 07/20/2018 looked good. PLAN: I will adjust his medications and hopefully, he will be able to be discharged tomorrow. Narinder Camacho DO MTDD
--- NOTE | 2018-07-25 11:54 | PN ---
DATE: 07/25/2018 SUBJECTIVE: I saw him in the Psychiatric floor. He was very upset. He thought he was being discharged at 7 a.m. today. It did not work out the way and he has been discharged at 8:15. He has a job he has to go to. He told everybody he is very upset about it, but he will be discharged. He is on aspirin, Ativan, Cozaar, Geodon, [place], Imdur, Maalox, Milk of Magnesia, Motrin, Neurontin, Norvasc, Remeron, Seroquel, Tylenol, and Vistaril. PHYSICAL EXAMINATION: VITAL SIGNS: He has a 97.9 temperature, 108 pulse, 141/89 blood pressure, and 20 respiratory rate. HEENT: Head is atraumatic and normocephalic. HEART: Regular rate. LUNGS: Clear to auscultation. ABDOMEN: Soft and obese. EXTREMITIES: No edema. ASSESSMENT AND PLAN: He was very depressed when he came in, hypertensive, drug abuse. I am hoping he . He will be discharged as per Psychiatry. He will follow up on the outpatient with his primary care doctor. He is not to do the drugs or the alcohol, or smoking anymore, if he can avoid it and hopefully he will continue with his plan to improve work. Narinder Camacho DO MTDD
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
== END 2018-07-25 10:36 | disposition home or self-care (01) | DRG 885 ==
LOC: ED 01:16 → ERH 08:35 → PSYC 10:25
PROVIDERS: ADMIT Psychiatry & Neurology Psychiatry; ATTEND Psychiatry & Neurology Psychiatry
DX: F31.9 Bipolar disorder, unspecified (principal); R45.851 Suicidal ideations; F20.9 Schizophrenia, unspecified; F60.2 Antisocial personality disorder; F43.10 Post-traumatic stress disorder, unspecified; G47.00 Insomnia, unspecified; F19.24 Other psychoactive substance dependence with psychoactive substance-induced mood disorder; I11.9 Hypertensive heart disease without heart failure; F14.10 Cocaine abuse, uncomplicated; F17.210 Nicotine dependence, cigarettes, uncomplicated; I51.7 Cardiomegaly; J44.9 Chronic obstructive pulmonary disease, unspecified; E11.9 Type 2 diabetes mellitus without complications; E66.9 Obesity, unspecified; F10.10 Alcohol abuse, uncomplicated; F12.10 Cannabis abuse, uncomplicated; M89.9 Disorder of bone, unspecified; Y90.4 Blood alcohol level of 80-99 mg/100 ml; Z79.82 Long term (current) use of aspirin; Z79.899 Other long term (current) drug therapy; Z91.19 Patient's noncompliance with other medical treatment and regimen